=== PATIENT | male | born 1950 | race Caucasian/White ===

== ENCOUNTER 2016-10-02 13:36 | Inpatient (IN) | payer MEDICARE, MEDICAID ==
--- NOTE | 2016-10-02 16:20 | ER Document Report ---
Doctor's Note Notes: 10/02/16 16:19 66-year-old male extensive medical history presents with complaints of low blood pressure. Patient notes he was recently started on metoprolol lisinopril eyes primary care physician, his blood pressure was normal this morning took his medications and then his blood pressure dropped to 80s over 50s. Patient notes blood pressure since resolved and he feels better. Patient notes extensive medical problems. I have greeted and performed a rapid initial assessment of this patient. A comprehensive ED assessment and evaluation of the patient, analysis of test results and completion of the medical decision making process will be conducted by additional ED providers. General chronically ill-appearing male no acute distress on home O2, blood pressure stable at this time
--- NOTE | 2016-10-02 18:14 | ER Document Report ---
ED Blood Pressure Problem - General Chief Complaint: Blood Pressure Problem Stated Complaint: POSSIBLE LOW BLOOD PRESSURE Information source: Patient Notes: Patient is a 66-year-old male with past medical history including multiple cardiac stents, diabetes, and a history of cauda equina causing some left leg paralysis who presents today after being started on 2 new blood pressure medications by his new primary care physician Dr.O manzanares yesterday. Patient was started on metoprolol and Cipro. Patient states he took his blood pressure earlier today because he just felt "tired". He states it was "low". Patient denies any headache, chest pain, palpitations, nausea, vomiting, or fevers. When the patient arrived his blood pressure was 139/89. Patient currently denies any symptoms. TRAVEL OUTSIDE OF THE [place] IN LAST 30 DAYS: No - HPI Patient complains to provider of: Other - See above Onset: This morning Onset/Duration: Gradual Quality of pain: No pain Severity: Mild Pain Level: Denies Problem is: New problem Pt currently taking medication for problem: Yes Associated symptoms: Other - See above Similar symptoms previously: No Recently seen / treated by doctor: Yes - Related Data Allergies/Adverse Reactions: metoclopramide [From Reglan] Allergy (Verified 10/02/16 13:50) zolpidem [From Ambien] Allergy (Verified 10/02/16 13:50) Past Medical History - General Information source: Patient - Social History Smoking Status: Unknown if Ever Smoked Cigarette use (# per day): No Chew tobacco use (# tins/day): No Smoking Education Provided: No Frequency of alcohol use: None Family History: Reviewed & Not Pertinent Patient has suicidal ideation: No Patient has homicidal ideation: No - Past Medical History Cardiac Medical History: Reports: Hx Congestive Heart Failure, Hx Hypercholesterolemia, Hx Hypertension Endocrine Medical History: Reports: Hx Diabetes Mellitus Type 1 Renal/ Medical History: Denies: Hx Peritoneal Dialysis Review of Systems - Review of Systems Constitutional: denies: Fever EENT: denies: Eye discharge, Nose congestion, Nose discharge Cardiovascular: denies: Chest pain, Palpitations Respiratory: denies: Short of breath Gastrointestinal: denies: Abdomen distended, Abdominal pain, Vomiting Genitourinary: denies: Dysuria Musculoskeletal: denies: Leg swelling Skin: Other - no hives. denies: Rash Neurological/Psychological: Other - no slurred speech -: Yes All other systems reviewed and negative Physical Exam - Vital signs Vitals: Temp Pulse Resp BP Pulse Ox 98.3 F 71 16 138/89 H 100 10/02/16 13:53 10/02/16 13:53 10/02/16 13:53 10/02/16 13:53 10/02/16 13:53 Notes: Reviewed vital signs and nursing note as charted by RN. CONSTITUTIONAL: Alert and oriented and responds appropriately to questions. Well -appearing; well-nourished; on nasal cannula oxygen which he wears at baseline. HEAD: Normocephalic; atraumatic EYES: PERRL ENT: Normal nose; no rhinorrhea; moist mucous membranes; pharynx without lesions noted NECK: Supple without meningismus; non-tender CARD: Regular rate and rhythm; no murmurs, no clicks, no rubs, no gallops; symmetric distal pulses RESP: Normal chest excursion without splinting or tachypnea; breath sounds clear and equal bilaterally; no obvious rales or rhonchi present. ABD/GI: Normal bowel sounds; elevated BMI; soft, non-tender BACK: The back appears normal and is non-tender to palpation, there is no CVA tenderness EXT: Normal ROM in all joints; non-tender to palpation; no cyanosis, no effusions, no edema to bilateral shins. SKIN: Normal color for age and race; warm; dry; good turgor; capillary refill < 2 seconds; no acute lesions noted NEURO: A slight weakness of the left lower extremity. PSYCH: The patient's mood and manner are appropriate. Grooming and personal hygiene are appropriate. Course - Re-evaluation Re-evalutation: 10/02/16 18:11 Given the history and physical examination we will order a set of cardiac enzymes. Repeat blood pressure was still 140/85. Patient denies any current symptoms. Patient is not tachycardic. Examination as recorded above showing a slight start of a possible sacral decubitus ulcer. 2 EKGs were performed. 1638. This shows a heart of 65, normal sinus rhythm, normal axis, Q wave present in lead 3. No obvious ST elevation or depression. Inverted T waves appear in lead 1 and aVL. Old EKG from March 2016 shows flattened T waves in leads 1 aVL. 1655. Heart rate 65, normal sinus rhythm, normal axis, no obvious ST elevation or depression. No obvious change from previous EKG. Patient does state that he was admitted to an outside hospital in [place] named [facility]. He states he was diagnosed with a mild heart attack. He states no intervention was performed secondary to his baseline medical conditions. Again , patient is denied any and all pain. Patient has been started on 2 blood pressure medications at that same time yesterday. 10/02/16 20:02 First troponin indeterminate. Patient still denies any chest pain. We have placed a request was outside records at [facility] as above. Patient 's blood pressure has stabilized. Patient appears to be in slight acute renal failure. I have provided a bolus of 500 mL. During the patient's last admission in March he did suffer a cardiac arrest. I'm slightly concerned even about his transient low blood pressure. - Vital Signs Vital signs: Temp Pulse Resp BP Pulse Ox 98.3 F 71 25 H 110/76 100 10/02/16 13:53 10/02/16 13:53 10/02/16 19:07 10/02/16 19:07 10/02/16 19:07 - Laboratory Result Diagrams: 10/02/16 19:02 10/02/16 19:02 Laboratory results interpreted by me: 10/02/16 10/02/16 10/02/16 17:54 19:02 19:02 Hgb 13.2 L MCH 26.9 L RDW 17.4 H Seg Neuts % (Manual) 79 H PT 25.7 H VBG pH Sodium Potassium BUN Creatinine Est GFR ( Amer) Est GFR (Non-Af Amer) Glucose POC Glucose 243 H Creatine Kinase 10/02/16 10/02/16 19:02 19:02 Hgb MCH RDW Seg Neuts % (Manual) PT VBG pH 7.44 H Sodium 135.3 L Potassium 5.2 H BUN 58 H Creatinine 1.74 H Est GFR ( Amer) 48 L Est GFR (Non-Af Amer) 40 L Glucose 206 H POC Glucose Creatine Kinase 37 L Discharge - Discharge Clinical Impression: Lightheadedness, Adverse effect of drug Hypotension Qualifiers: Hypotension type: unspecified hypotension type Qualified Code(s): I95.9 - Hypotension, unspecified Pressure ulcer Qualifiers: Pressure ulcer location: sacral region Pressure ulcer stage: stage 1 Qualified Code(s): L89.151 - Pressure ulcer of sacral region, stage 1 Condition: Fair Disposition: ADMITTED OBSERVATION Admitting Provider: [facility] Unit Admitted: Telemetry
[2016-10-02 19:20] LABS: VENOUS BLOOD BASE EXCESS 2.2 mmol/L; VENOUS BLOOD HCO3 26.4 mmol/L (20-32); VENOUS BLOOD PCO2 39.8 mmHg (35-63); VENOUS BLOOD PH 7.44 (7.30-7.42)
[2016-10-02 19:24] LABS: PROTHROMBIN TIME 25.7 SEC (11.4-15.4)
[2016-10-02 19:33] LABS: HEMATOCRIT 39.1 % (37.9-51.0); HEMOGLOBIN 13.2 g/dL (13.5-17.0); HGB HCT DIFFERENCE 0.5; MEAN CORPUSCULAR HEMOGLOBIN 26.9 pg (27.0-33.4); MEAN CORPUSCULAR HGB CONC 33.8 g/dL (32.0-36.0); MEAN CORPUSCULAR VOLUME 80 fl (80-97); RED BLOOD COUNT 4.92 10^6/uL (4.35-5.55); RED CELL DISTRIBUTION WIDTH 17.4 % (11.5-14.0); WHITE BLOOD COUNT 9.1 10^3/uL (4.0-10.5)
[2016-10-02 19:42] LABS: ALANINE AMINOTRANSFERASE 41 U/L (21-72); ALBUMIN 4.4 g/dL (3.5-5.0); ALKALINE PHOSPHATASE 84 U/L (38-126); ANION GAP 12 (5-19); ASPARTATE AMINO TRANSFERASE 37 U/L (17-59); BILIRUBIN,DIRECT 0.2 mg/dL (0.0-0.4); BILIRUBIN,TOTAL 1.1 mg/dL (0.2-1.3); BLOOD UREA NITROGEN 58 mg/dL (7-20); CALCIUM 9.7 mg/dL (8.4-10.2); CARBON DIOXIDE 25 mmol/L (22-30); CHLORIDE 98 mmol/L (98-107); CREATINE KINASE 37 U/L (55-170); CREATININE RESULT 1.74 mg/dL (0.52-1.25); GLUCOSE 206 mg/dL (75-110); POTASSIUM 5.2 mmol/L (3.6-5.0); SODIUM 135.3 mmol/L (137-145); TOTAL PROTEIN 7.1 g/dL (6.3-8.2)
[2016-10-02 19:48] LABS: BASOPHILS % (MANUAL) 1 % (0-2); EOSINOPHILS % (MANUAL) 0 % (0-6); LYMPHOCYTES % (MANUAL) 16 % (13-45); TOTAL CELLS COUNTED 100
[2016-10-02] MEDS ORDERED: NORMAL SALINE 1000 ML 500 ML IV ONE (19:54)
[2016-10-02 19:55] LABS: CREATINE KINASE MB 1.89 ng/mL (<4.55)
[2016-10-02 19:56] LABS: ANISOCYTOSIS 1+; BURR CELLS SLIGHT; HYPOCHROMASIA SLIGHT; MICROCYTOSIS SLIGHT; OVALOCYTES SLIGHT; PLATELET CLUMPS PRESENT; POIKILOCYTOSIS SLIGHT; TOXIC GRANULATION SLIGHT
[2016-10-02 19:58] LABS: TROPONIN I 0.059 ng/mL
[2016-10-02 22:49] LABS: APPEARANCE,URINE CLEAR; BILIRUBIN,URINE NEGATIVE (NEGATIVE); GLUCOSE, URINE NEGATIVE (NEGATIVE); KETONES,URINE NEGATIVE (NEGATIVE); LEUKOCYTE ESTERASE,URINE NEGATIVE (NEGATIVE); NITRITE,URINE NEGATIVE (NEGATIVE); PROTEIN,URINE 30 mg/dL (NEGATIVE); URINE SPECIFIC GRAVITY 1.011; UROBILINOGEN,URINE NEGATIVE mg/dL (<2.0)
--- NOTE | 2016-10-03 00:06 | EKG REPORT ---
SEVERITY:- ABNORMAL ECG - SINUS RHYTHM NONSPECIFIC INTRAVENTRICULAR CONDUCTION DELAY INFERIOR INFARCT, AGE INDETERMINATE : Confirmed by: Zayra Hilton 03-Oct-2016 00:05:46
--- NOTE | 2016-10-03 00:06 | EKG REPORT ---
SEVERITY:- ABNORMAL ECG - SINUS RHYTHM NONSPECIFIC INTRAVENTRICULAR CONDUCTION DELAY PROBABLE INFERIOR INFARCT, AGE INDETERMINATE : Confirmed by: Zayra Hilton 03-Oct-2016 00:05:34
[2016-10-03] MEDS ORDERED: NORMAL SALINE 1000 ML 1,000 ML IV PRN ×2 (02:02→07:14)
[2016-10-03] MEDS ORDERED: GLUCAGON,HUMAN RECOMB 1 MG INJ IM PRN (02:45)
[2016-10-03] MEDS ORDERED: DEXTROSE 40% GEL 15 GM TUBE PO PRN (02:45)
[2016-10-03] MEDS ORDERED: DEXTROSE 50%-WATER SYRINGE 25 GM/50 ML DOSE IV PRN (02:45)
[2016-10-03] MEDS ORDERED: DEXTROSE 40% GEL 15 GM TUBE X 2 PO PRN (02:45)
[2016-10-03] MEDS ORDERED: DEXTROSE 50%-WATER SYRINGE 12.5 GM/25 ML DOSE IV PRN (02:45)
[2016-10-03] MEDS ORDERED: HYDROMORPHONE HCL 2 MG TABLET PO PRN (02:51)
[2016-10-03] MEDS ORDERED: PROMETHAZINE HCL 25 MG TABLET PO PRN (02:57)
[2016-10-03] MEDS: GABAPENTIN 300 MG CAPSULE PO SCH ×3 (07:15→22:30)
[2016-10-03] MEDS: OXYCODONE HCL SR 40 MG TABLET PO SCH ×3 (07:15→22:30)
[2016-10-03] MEDS ORDERED: (PENDING PHARMACY ID) (Warfarin Sodium 2 MG) PO SCH (10:00)
[2016-10-03] MEDS ORDERED: LANSOPRAZOLE 30 MG TAB.RAP.DR PO SCH (10:00)
[2016-10-03] MEDS ORDERED: LEVOTHYROXINE SODIUM 0.1 MG TABLET PO SCH (10:00)
[2016-10-03 10:43] LABS: HEMATOCRIT 37.8 % (37.9-51.0); HEMOGLOBIN 12.6 g/dL (13.5-17.0); MEAN CORPUSCULAR HEMOGLOBIN 26.8 pg (27.0-33.4); MEAN CORPUSCULAR HGB CONC 33.4 g/dL (32.0-36.0); MEAN CORPUSCULAR VOLUME 80 fl (80-97); RED BLOOD COUNT 4.72 10^6/uL (4.35-5.55); RED CELL DISTRIBUTION WIDTH 16.8 % (11.5-14.0); WHITE BLOOD COUNT 10.3 10^3/uL (4.0-10.5)
[2016-10-03 11:00] LABS: ANION GAP 14 (5-19); BLOOD UREA NITROGEN 54 mg/dL (7-20); CALCIUM 9.2 mg/dL (8.4-10.2); CARBON DIOXIDE 23 mmol/L (22-30); CHLORIDE 99 mmol/L (98-107); CREATININE RESULT 1.59 mg/dL (0.52-1.25); GLUCOSE 210 mg/dL (75-110); MAGNESIUM 2.2 mg/dL (1.6-2.3); POTASSIUM 5.2 mmol/L (3.6-5.0); SODIUM 135.8 mmol/L (137-145)
[2016-10-03 11:01] LABS: BASOPHILS % (MANUAL) 0 % (0-2); EOSINOPHILS % (MANUAL) 0 % (0-6); LYMPHOCYTES % (MANUAL) 19 % (13-45); TOTAL CELLS COUNTED 100
[2016-10-03 11:02] LABS: ANISOCYTOSIS 1+; BURR CELLS SLIGHT; HYPOCHROMASIA SLIGHT; OVALOCYTES SLIGHT; POIKILOCYTOSIS 1+
[2016-10-03] MEDS: METOPROLOL TARTRATE 50 MG TABLET PO SCH (11:40)
[2016-10-03] MEDS: BUMETANIDE 1 MG TABLET PO SCH (11:40)
[2016-10-03] MEDS: RANOLAZINE 500 MG TAB.SR.12H PO SCH ×2 (11:41→22:30)
[2016-10-03] MEDS: PREDNISONE 10 MG TABLET PO SCH (11:42)
[2016-10-03] MEDS: SPIRONOLACTONE 25 MG TABLET PO SCH (11:42)
[2016-10-03] MEDS: ASPIRIN 81 MG TABLET, CHEWABLE PO SCH (11:42)
[2016-10-03] MEDS: INSULIN LISPRO 100 UNIT/ML 3 ML VIAL SUBCUT SCH ×3 (12:25→22:35)
--- NOTE | 2016-10-03 18:37 | PDOC H&P ---
History of Present Illness Admission Date/PCP: 10/03/16 07:40 RAVI SANCHEZ MD History of Present Illness: KARISSA JHA is a 66 year old male he has a history of type II diabetes mellitus, coronary artery disease with stenting, caudia equina paraplegia, he said he felt bad he then check his blood pressure and it was low he then called rescue squad, when they arrived he was in the recliner the blood pressure recorded was 130/70 but patient requested to be transported to the hospital for further evaluation. In the emergency room he was seen and evaluated, the blood pressure recorded in the emergency room was 138/89, temperature 98.3 and pulse oximetry was 100 ,respiratory rate was 16 he also have blood work done, the serum creatinine was 1.74. I saw this patient in the office on and at that time he had comprehensive blood work done the serum creatinine was 1.8 from the lab work that was done in the office last week . He has a history of diabetes mellitus, coronary artery disease when I reviewed his medication in the office on he was not on any beta- erika or ARB/ACEI. I explained to him that it is recommended that he takes beta-erika especially since he has CAD with multiple stenting and he also needed to be on ARB/ACEI for kidney protection because he is a diabetic so he was started on low-dose lisinopril and metoprolol. The patient stated that the blood pressure recorded at home was low, the blood pressure recorded by rescue squad and the emergency room was not low ,Anton not know if his machine is the problem or if he took too many medication at the same time. The emergency room physician wanted him admitted to the hospital because he said the last time he presented to the emergency room he had a cardiac arrest and he was transferred to tertiary care at the time so he does not feel comfortable to discharge him from the ED , though the blood pressure is normal Past Medical History Cardiac Medical History: Reports: Congestive Heart Failure, Coronary Artery Disease, Hyperlipidema, Hypertension Endocrine Medical History: Reports: Diabetes Mellitus Type 2 Psychiatric Medical History: Reports: Depression Past Surgical History Past Surgical History: Reports: Cardiac Catheterization, Coronary Artery Bypass Graft, Other - multiple coronary artery stents Social History Smoking Status: Unknown if Ever Smoked Frequency of Alcohol Use: None Hx Recreational Drug Use: No Hx Prescription Drug Abuse: No Family History Family History: Reviewed & Not Pertinent Parental Family History Reviewed: Yes Children Family History Reviewed: Yes Sibling(s) Family History Reviewed.: Yes Medication/Allergy Home Medications: Aspirin [Aspirin 81 mg Chewable Tablet] 81 mg PO DAILY 10/03/16 Atorvastatin Calcium [Lipitor 80 mg Tablet] 80 mg PO DAILY 10/03/16 Baclofen [Baclofen 10 mg Tablet] 10 mg PO TIDP PRN 10/03/16 Bumetanide [Bumex 1 mg Tablet] 1 mg PO DAILY 10/03/16 Clopidogrel Bisulfate [Plavix 75 mg Tablet] 75 mg PO DAILY 10/03/16 Gabapentin [Neurontin 300 mg Capsule] 300 mg PO Q8 10/03/16 Hydromorphone HCl [Dilaudid 2 mg Tablet] 4 mg PO BIDP PRN 10/03/16 Insulin Detemir [Levemir Flextouch] 50 unit SQ QHS 10/03/16 Insulin Lispro [Humalog Kwikpen U-200] 10 unit SQ ACHS 10/03/16 Isosorbide Dinitrate [Isordil Titradose 10 mg Tablet] 10 mg PO Q8 10/03/16 Levothyroxine Sodium [Synthroid 0.1 mg Tablet] 0.1 mg PO DAILY@0600 10/03/16 Lisinopril [Prinivil 10 mg Tablet] 10 mg PO DAILY 10/03/16 Metoprolol Tartrate [Lopressor 50 mg Tablet] 50 mg PO DAILY 10/03/16 Nitroglycerin [Nitrostat] 0.4 mg SL Q5MP PRN 10/03/16 Oxycodone HCl [Oxycontin Sr 40 mg Tablet] 40 mg PO Q8 10/03/16 Pantoprazole Sodium [Protonix] 40 mg PO DAILY 10/03/16 Prednisone [Deltasone 10 mg Tablet] 10 mg PO DAILY 10/03/16 Promethazine HCl [Phenergan 25 mg Tablet] 25 mg PO TIDP PRN 10/03/16 Ranolazine [Ranexa 500 mg Tab.sr] 500 mg PO Q12 10/03/16 Spironolactone [Aldactone 25 mg Tablet] 25 mg PO DAILY 10/03/16 Warfarin Sodium [Coumadin 2 mg Tablet] 2 mg PO DAILY 10/03/16 Allergies/Adverse Reactions: metoclopramide [From Reglan] Allergy (Verified 10/02/16 13:50) zolpidem [From Ambien] Allergy (Verified 10/02/16 13:50) Review of Systems Constitutional: PRESENT: fatigue Eyes: ABSENT: visual disturbances Ears: ABSENT: hearing changes Cardiovascular: ABSENT: chest pain, dyspnea on exertion, edema, orthropnea, palpitations Respiratory: ABSENT: cough, hemoptysis Gastrointestinal: ABSENT: abdominal pain, constipation, diarrhea, hematemesis, hematochezia, nausea, vomiting Genitourinary: ABSENT: dysuria, hematuria Musculoskeletal: ABSENT: joint swelling Integumentary: ABSENT: rash, wounds Neurological: ABSENT: abnormal gait, abnormal speech, confusion, dizziness, focal weakness, syncope Psychiatric: ABSENT: anxiety, depression, homidical ideation, suicidal ideation Endocrine: ABSENT: cold intolerance, heat intolerance, menstrual abnormalities, polydipsia, polyuria Hematologic/Lymphatic: ABSENT: easy bleeding, easy bruising, lymphadenopathy Physical Exam Vital Signs: Temp Pulse Resp BP Pulse Ox 97.3 F 56 L 19 101/48 L 100 10/03/16 16:00 10/03/16 16:00 10/03/16 16:00 10/03/16 16:00 10/03/16 16:00 Intake & Output 10/02/16 10/03/16 10/04/16 06:59 06:59 06:59 Intake Total 1751 Output Total 600 Balance 1151 General appearance: PRESENT: no acute distress, well-developed, well-nourished Head exam: PRESENT: atraumatic, normocephalic Eye exam: PRESENT: conjunctiva pink, EOMI, PERRLA Neck exam: PRESENT: full ROM Cardiovascular exam: PRESENT: RRR, +S1, +S2 Pulses: PRESENT: normal dorsalis pedis pul, +2 pedal pulses bilateral Vascular exam: PRESENT: normal capillary refill GI/Abdominal exam: PRESENT: normal bowel sounds, soft Rectal exam: PRESENT: deferred Neurological exam: PRESENT: alert, other - Paraplegia Psychiatric exam: PRESENT: appropriate affect, normal mood Skin exam: PRESENT: dry, intact, warm. ABSENT: cyanosis, rash Results Laboratory Results: 10/03/16 09:50 10/03/16 09:50 10/03/16 10/03/16 09:50 09:50 WBC 10.3 RBC 4.72 Hgb 12.6 L Hct 37.8 L MCV 80 MCH 26.8 L MCHC 33.4 RDW 16.8 H Plt Count 204 Seg Neutrophils % Not Reportable Lymphocytes % Not Reportable Monocytes % Not Reportable Eosinophils % Not Reportable Basophils % Not Reportable Absolute Neutrophils Not Reportable Absolute Lymphocytes Not Reportable Absolute Monocytes Not Reportable Absolute Eosinophils Not Reportable Absolute Basophils Not Reportable Sodium 135.8 L Potassium 5.2 H Chloride 99 Carbon Dioxide 23 Anion Gap 14 BUN 54 H Creatinine 1.59 H Est GFR ( Amer) 53 L Est GFR (Non-Af Amer) 44 L Glucose 210 H Calcium 9.2 Magnesium 2.2 Impressions: Chest X-Ray 10/02/16 16:18 IMPRESSION: Interval improvement. Assessment & Plan - Diagnosis (1) Acute kidney injury superimposed on chronic kidney disease Is this a current diagnosis for this admission?: YesPlan: There is mild acute kidney injury on superimposed chronic kidney disease (2) Chronic kidney disease, stage 3 Is this a current diagnosis for this admission?: Yes (3) Acute on chronic systolic heart failure Is this a current diagnosis for this admission?: Yes
[2016-10-03] MEDS ORDERED: WARFARIN SODIUM 2 MG TABLET PO SCH (22:00)
[2016-10-03] MEDS: INSULIN LISPRO 100 UNIT/ML 3 ML VIAL SUBCUT PRN (22:29)
[2016-10-03] MEDS: INSULIN DETEMIR 100 UNIT/ML 3 ML PEN SUBCUT SCH (22:30)
[2016-10-03] MEDS: ATORVASTATIN CALCIUM 80 MG TABLET PO SCH (22:30)
[2016-10-03] MEDS ORDERED: RANOLAZINE 500 MG TAB.SR.12H PO SCH (23:00)
[2016-10-03] MEDS ORDERED: LISINOPRIL 10 MG TABLET PO SCH (23:00)
[2016-10-03] MEDS ORDERED: ATORVASTATIN CALCIUM 80 MG TABLET PO SCH (23:00)
[2016-10-03] MEDS ORDERED: GABAPENTIN 300 MG CAPSULE PO SCH (23:00)
[2016-10-03] MEDS ORDERED: ASPIRIN 81 MG TABLET, CHEWABLE PO SCH (23:00)
[2016-10-03] MEDS ORDERED: CLOPIDOGREL BISULFATE 75 MG TABLET PO SCH (23:00)
[2016-10-03] MEDS ORDERED: CEFTRIAXONE 2 GM/D5W RTU 2 GM/50 ML RTUPB IV ONE (23:00)
[2016-10-03] MEDS ORDERED: INSULIN DETEMIR 100 UNIT/ML 3 ML PEN SUBCUT SCH (23:00)
[2016-10-03] MEDS ORDERED: METOPROLOL TARTRATE 50 MG TABLET PO SCH (23:00)
[2016-10-04] MEDS ORDERED: CEFTRIAXONE 2 GM/D5W RTU 2 GM/50 ML RTUPB IV ONE (01:07)
[2016-10-04] MEDS: MAG HYDROX/AL HYDROX/SIMETH SUSP 30 ML UDCUP PO PRN (01:38)
[2016-10-04] MEDS ORDERED: LEVOTHYROXINE SODIUM 0.1 MG TABLET PO SCH (06:00)
[2016-10-04] MEDS: OXYCODONE HCL SR 40 MG TABLET PO SCH ×3 (06:16→23:35)
[2016-10-04] MEDS: GABAPENTIN 300 MG CAPSULE PO SCH ×3 (06:16→23:34)
[2016-10-04 07:06] LABS: HEMATOCRIT 35.8 % (37.9-51.0); HEMOGLOBIN 11.9 g/dL (13.5-17.0); HGB HCT DIFFERENCE -0.1; MEAN CORPUSCULAR HEMOGLOBIN 26.5 pg (27.0-33.4); MEAN CORPUSCULAR HGB CONC 33.2 g/dL (32.0-36.0); MEAN CORPUSCULAR VOLUME 80 fl (80-97); RED CELL DISTRIBUTION WIDTH 16.7 % (11.5-14.0); WHITE BLOOD COUNT 8.3 10^3/uL (4.0-10.5)
[2016-10-04 07:16] LABS: PROTHROMBIN TIME 21.5 SEC (11.4-15.4)
[2016-10-04] MEDS: BUMETANIDE 1 MG TABLET PO SCH (08:47)
[2016-10-04] MEDS: RANOLAZINE 500 MG TAB.SR.12H PO SCH ×2 (08:48→23:34)
[2016-10-04] MEDS: METOPROLOL TARTRATE 50 MG TABLET PO SCH (08:49)
[2016-10-04] MEDS: ASPIRIN 81 MG TABLET, CHEWABLE PO SCH (08:49)
[2016-10-04] MEDS: SPIRONOLACTONE 25 MG TABLET PO SCH (08:49)
[2016-10-04] MEDS: PREDNISONE 10 MG TABLET PO SCH (08:50)
[2016-10-04] MEDS: INSULIN LISPRO 100 UNIT/ML 3 ML VIAL SUBCUT SCH ×4 (08:50→23:36)
[2016-10-04] MEDS: LEVOTHYROXINE SODIUM 0.1 MG TABLET PO SCH (08:54)
[2016-10-04] MEDS: ISOSORBIDE DINITRATE 10 MG TABLET PO SCH ×3 (09:53→23:34)
[2016-10-04 10:33] LABS: APPEARANCE,URINE CLEAR; BILIRUBIN,URINE NEGATIVE (NEGATIVE); GLUCOSE, URINE NEGATIVE (NEGATIVE); KETONES,URINE NEGATIVE (NEGATIVE); LEUKOCYTE ESTERASE,URINE NEGATIVE (NEGATIVE); NITRITE,URINE NEGATIVE (NEGATIVE); PROTEIN,URINE NEGATIVE (NEGATIVE); URINE SPECIFIC GRAVITY 1.009; UROBILINOGEN,URINE NEGATIVE mg/dL (<2.0)
--- NOTE | 2016-10-04 20:15 | PDOC PROGRESS REPORT ---
Subjective Progress Note for:: 10/04/16 Subjective:: He was seen by the bedside, the urine culture is growing gram-negative rods, specific pathogen is not known yet empirically started on Rocephin. 2D echo was done, ejection fraction is low, patient needed ACEI/ARB and beta-erika, he is somewhat confused of the need for ACEI/ARB. He probably need entresto but it is nonformulary in the hospital Physical Exam Vital Signs: Temp Pulse Resp BP Pulse Ox 97.4 F 57 L 18 102/61 100 10/04/16 15:01 10/04/16 15:01 10/04/16 15:01 10/04/16 15:01 10/04/16 18:21 Intake & Output 10/03/16 10/04/16 10/05/16 06:59 06:59 06:59 Intake Total 380 2478 360 Output Total 200 2475 600 Balance 180 3 -240 Weight 102.8 kg General appearance: PRESENT: no acute distress Eye exam: PRESENT: PERRLA Respiratory exam: PRESENT: clear to auscultation rebecca Cardiovascular exam: PRESENT: +S1, +S2 Results Laboratory Results: 10/04/16 06:57 10/03/16 09:50 10/04/16 10/04/16 06:57 10:10 WBC 8.3 RBC 4.50 Hgb 11.9 L Hct 35.8 L MCV 80 MCH 26.5 L MCHC 33.2 RDW 16.7 H Plt Count 182 Urine Color STRAW Urine Appearance CLEAR Urine pH 7.0 Ur Specific [place] 1.009 Urine Protein NEGATIVE Urine Glucose (UA) NEGATIVE Urine Ketones NEGATIVE Urine Blood SMALL H Urine Nitrite NEGATIVE Ur Leukocyte Esterase NEGATIVE Urine WBC (Auto) 1 Impressions: Chest X-Ray 10/02/16 16:18 IMPRESSION: Interval improvement. Assessment & Plan - Diagnosis (1) Acute kidney injury superimposed on chronic kidney disease Is this a current diagnosis for this admission?: Yes (2) Chronic kidney disease, stage 3 Is this a current diagnosis for this admission?: Yes (3) Chronic systolic heart failure Is this a current diagnosis for this admission?: YesPlan: Consultation is obtained from cardiology
--- NOTE | 2016-10-04 21:03 | XCELERA REPORT ---
[address] [address] Transthoracic Echocardiogram Report Name: KARISSA JHA Age: 66 yrs Gender: Male : 1950 Patient Status: Inpatient Patient Location: 5\S\530\S\A Study Date: 10/04/2016 02:49 PM Height: 70 in Weight: 226 lb BSA: 2.2 m2 Procedure: A complete two-dimensional transthoracic echocardiogram was performed (2D, M-mode, spectral and color flow Doppler). The study was technically difficult with many images being suboptimal in quality. Reason For Study: CAD Ordering Physician: RAVI SANCHEZ Performed By: Jennifer Benz Interpretation Summary The study was technically difficult with many images being suboptimal in quality. The Ejection Fraction estimate is 45-50% Left ventricular systolic function is mildly reduced. There is mild concentric left ventricular hypertrophy. The left ventricle is borderline dilated. Doppler measurements suggest pseudonormalized left ventricular relaxation, which is associated with grade II/IV or mild to moderate diastolic dysfunction Not all wall segments were well visualized. Wall motion cannot be accurately commented on, but no definite regional wall motion abnormalities noted. The right ventricular systolic function is normal. The left atrium is moderately dilated. The right atrium is normal in size There is a mild amount of mitral regurgitation There is no mitral valve stenosis. There is a trace amount of aortic regurgitation There is no aortic valve stenosis There is a trace or physiologic amount of tricuspid regurgitation Tricuspid regurgitation jet envelope not well defined to measure RV systolic pressure accurately. The aortic root is not well visualized. The inferior vena cava was not well visualized There is no pericardial effusion. MMode/2D Measurements \T\ Calculations RVDd: 3.9 cm LVIDd: 5.6 cm FS: 19.3 % Ao root diam: 3.2 cm IVSd: 1.2 cm LVIDs: 4.5 cm EDV(Teich): 155.3 ml LVPWd: 1.2 cm ESV(Teich): 94.3 ml Ao root area: 8.2 cm2 EF(Teich): 39.3 % LA dimension: 5.1 cm Doppler Measurements \T\ Calculations MV E max vangie: MV P1/2t max vangie: Ao V2 max: LV V1 max P.8 cm/sec 79.4 cm/sec 79.3 cm/sec 1.9 mmHg MV A max vangie: MV P1/2t: 65.3 msec Ao max PG: LV V1 max: 65.9 cm/sec 2.5 mmHg 69.8 cm/sec MV E/A: 1.2 MVA(P1/2t): 3.4 cm2 MV dec slope: 356.4 cm/sec2 MV dec time: 0.22 sec PA V2 max: TR max vangie: 73.3 cm/sec 181.3 cm/sec PA max PG: TR max P.2 mmHg 2.1 mmHg Left Ventricle The left ventricle is borderline dilated. There is mild concentric left ventricular hypertrophy. Left ventricular systolic function is mildly reduced. The Ejection Fraction estimate is 45-50%. Doppler measurements suggest pseudonormalized left ventricular relaxation, which is associated with grade II/IV or mild to moderate diastolic dysfunction. Wall motion cannot be accurately commented on, but no definite regional wall motion abnormalities noted. Not all wall segments were well visualized. Right Ventricle The right ventricle is grossly normal size. There is normal right ventricular wall thickness. The right ventricular systolic function is normal. Atria The right atrium is normal in size. The left atrium is moderately dilated. Interarterial septum not well visualized and not well dopplered. Cannot comment on ASD/PFO presence. Mitral Valve There is mild mitral annular calcification. There is no mitral valve stenosis. There is a mild amount of mitral regurgitation. Aortic Valve The aortic valve is mildly calcified. There is no aortic valve stenosis. There is a trace amount of aortic regurgitation. Tricuspid Valve The tricuspid valve is not well visualized secondary to technical limitations. There is no tricuspid stenosis. There is a trace or physiologic amount of tricuspid regurgitation. Tricuspid regurgitation jet envelope not well defined to measure RV systolic pressure accurately. Pulmonic Valve The pulmonic valve is not well visualized. Great Vessels The aortic root is not well visualized. The inferior vena cava was not well visualized. Effusions There is no pericardial effusion. : RAVI SANCHEZ > Zayra Hilton
[2016-10-04] MEDS: INSULIN DETEMIR 100 UNIT/ML 3 ML PEN SUBCUT SCH (23:33)
[2016-10-04] MEDS: INSULIN LISPRO 100 UNIT/ML 3 ML VIAL SUBCUT PRN (23:34)
[2016-10-04] MEDS: ATORVASTATIN CALCIUM 80 MG TABLET PO SCH (23:34)
[2016-10-04] MEDS: CEFTRIAXONE 2 GM/D5W RTU 2 GM/50 ML RTUPB IV SCH (23:35)
[2016-10-04] MEDS: WARFARIN SODIUM 2.5 MG TABLET PO SCH (23:35)
[2016-10-05] MEDS: ISOSORBIDE DINITRATE 10 MG TABLET PO SCH ×3 (05:36→22:31)
[2016-10-05] MEDS: GABAPENTIN 300 MG CAPSULE PO SCH ×3 (05:36→22:31)
[2016-10-05] MEDS: OXYCODONE HCL SR 40 MG TABLET PO SCH ×3 (05:36→22:33)
[2016-10-05] MEDS: LANSOPRAZOLE 30 MG TAB.RAP.DR PO SCH (05:37)
[2016-10-05] MEDS: LEVOTHYROXINE SODIUM 0.1 MG TABLET PO SCH (05:39)
[2016-10-05] MEDS: INSULIN LISPRO 100 UNIT/ML 3 ML VIAL SUBCUT SCH ×3 (07:58→16:27)
--- NOTE | 2016-10-05 08:36 | PDOC CONSULTATION ---
Consultation Consult Date: 10/05/16 Attending physician:: RAVI SANCHEZ Consult reason:: Hypotension, cardiomyopathy, coronary artery disease. History of Present Illness Admission Date/PCP: 10/02/16 20:12 RAVI SANCHEZ MD Patient complains of: Hypotension History of Present Illness: KARISSA JHA is a 66 year old male he has a history of type II diabetes mellitus, coronary artery disease with stenting, caudia equina paraplegia, he said, he felt weak and tired therefore checked his blood pressure which was low he then called rescue squad, when they arrived he was in the recliner the blood pressure recorded was 130/70 but patient requested to be transported to the hospital for further evaluation. In the emergency room he was seen and evaluated, the blood pressure recorded the emergency room was 138/89, temperature 98.3 on pulse oximetry was 100 respiratory rate was 16 he also have blood work done, the serum creatinine was 1.74. Patient seen by primary care MJoseph in the office on and at that time he had comprehensive blood work done the serum creatinine was 1.8 from the lab work that was done in the office last week . He has a history of diabetes mellitus, coronary artery disease. The emergency room physician wanted him admitted to the hospital because he said the last time he presented to the emergency room he had a cardiac arrest and he was transferred to tertiary care at the time so he does not feel comfortable to discharge him from the ED. Patient was seen in my office previously.. He has history of prior myocardial infarction, prior stroke , diabetes, paraplegia from cauda equina syndrome. Past Medical History Cardiac Medical History: Reports: Congestive Heart Failure, Coronary Artery Disease, Hyperlipidema, Hypertension Endocrine Medical History: Reports: Diabetes Mellitus Type 1, Diabetes Mellitus Type 2 Psychiatric Medical History: Reports: Depression Past Surgical History Past Surgical History: Reports: Cardiac Catheterization, Coronary Artery Bypass Graft, Coronary Stent Social History Information Source: Patient Smoking Status: Unknown if Ever Smoked Frequency of Alcohol Use: None Hx Recreational Drug Use: No Hx Prescription Drug Abuse: No - Advance Directive Resuscitation Status: Full Code Family History Family History: Reviewed & Not Pertinent Parental Family History Reviewed: Yes Children Family History Reviewed: Yes Sibling(s) Family History Reviewed.: Yes - Positive for CAD but not premature Medication/Allergy Home Medications: Aspirin [Aspirin 81 mg Chewable Tablet] 81 mg PO DAILY 10/03/16 Atorvastatin Calcium [Lipitor 80 mg Tablet] 80 mg PO DAILY 10/03/16 Baclofen [Baclofen 10 mg Tablet] 10 mg PO TIDP PRN 10/03/16 Bumetanide [Bumex 1 mg Tablet] 1 mg PO DAILY 10/03/16 Clopidogrel Bisulfate [Plavix 75 mg Tablet] 75 mg PO DAILY 10/03/16 Gabapentin [Neurontin 300 mg Capsule] 300 mg PO Q8 10/03/16 Hydromorphone HCl [Dilaudid 2 mg Tablet] 4 mg PO BIDP PRN 10/03/16 Insulin Detemir [Levemir Flextouch] 50 unit SQ QHS 10/03/16 Insulin Lispro [Humalog Kwikpen U-200] 10 unit SQ ACHS 10/03/16 Isosorbide Dinitrate [Isordil Titradose 10 mg Tablet] 10 mg PO Q8 10/03/16 Levothyroxine Sodium [Synthroid 0.1 mg Tablet] 0.1 mg PO DAILY@0600 10/03/16 Lisinopril [Prinivil 10 mg Tablet] 10 mg PO DAILY 10/03/16 Metoprolol Tartrate [Lopressor 50 mg Tablet] 50 mg PO DAILY 10/03/16 Nitroglycerin [Nitrostat] 0.4 mg SL Q5MP PRN 10/03/16 Oxycodone HCl [Oxycontin Sr 40 mg Tablet] 40 mg PO Q8 10/03/16 Pantoprazole Sodium [Protonix] 40 mg PO DAILY 10/03/16 Prednisone [Deltasone 10 mg Tablet] 10 mg PO DAILY 10/03/16 Promethazine HCl [Phenergan 25 mg Tablet] 25 mg PO TIDP PRN 10/03/16 Ranolazine [Ranexa 500 mg Tab.sr] 500 mg PO Q12 10/03/16 Spironolactone [Aldactone 25 mg Tablet] 25 mg PO DAILY 10/03/16 Warfarin Sodium [Coumadin 2 mg Tablet] 2 mg PO DAILY 10/03/16 Allergies/Adverse Reactions: metoclopramide [From Reglan] Allergy (Verified 10/02/16 13:50) zolpidem [From Ambien] Allergy (Verified 10/02/16 13:50) Review of Systems Review of Systems: Please see history of present illness and past medical history as wall. Constitutional: No fever or chills reported. Generalized weakness reported Head : No recent chronic headaches, recent head injury. Eyes: No recent eye pain, diplopia, redness, discharge, acute visual changes. Ears: No recent chronic ear pain, acute hearing loss, ear discharge. Oral cavity: No recent ulcerations, bleeding, oral cavity discomfort. Neck: No recent acute neck pain reported. Hematologic: No recent easy bruising or bleeding or hematologic malignancy reported. Lymphatic: No recent lymphatic malignancy, chronic lymphadenopathy reported yet Cardiovascular system review: See history of present illness. Respiratory system review: No recent chronic cough, hemoptysis, blood clots in the lungs reported. Mild Shortness of breath on exertion Gastrointestinal system review: Negative for any recent acute or chronic abdominal pain, hematemesis, melena, recent change in bowel habits. Genitourinary system review: No recent acute or chronic hematuria, flank pain, UTI etc. reported. Skin system review: Negative for any recent abnormal bruising, no rash, no pruritus reported. Neurologic: No prior history of strokes, mini strokes, seizure disorder. Patient has cauda equina syndrome and has paraparesis. Psychologic: No history of major psychosis or major depression reported. Musculoskeletal: Minor aches and pains reported. No acute joint swelling reported. 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 Endocrine: No recent polyuria, polydipsia, recent heat or cold intolerance. Physical Exam Vital Signs: Temp Pulse Resp BP Pulse Ox 97.2 F 54 L 19 108/50 L 100 10/05/16 03:44 10/05/16 07:00 10/05/16 03:44 10/05/16 03:44 10/05/16 03:44 Intake & Output 10/04/16 10/05/16 10/06/16 06:59 06:59 06:59 Intake Total 2478 1270 Output Total 2475 3425 Balance 3 -2155 Exam: GENERAL: well-nourished and in no acute distress. Alert and oriented x3 HEAD: Atraumatic, normocephalic. EYES: Pupils equal round and reactive to light, extraocular movements intact, sclera anicteric, conjunctiva are normal. ENT: TMs normal, nares patent, oropharynx clear without exudates. Moist mucous membranes. No oral ulcerations or bleeding gums noted NECK: supple without lymphadenopathy. Trachea is central. No cervical or axillary lymphadenopathy noted. Carotids are 2+, JVD WNL LUNGS: Respiration seems nonlabored, no significant accessory muscle action noted. Breath sounds clear to auscultation bilaterally and equal noted. No wheezes rales or rhonchi noted. No significant dullness noted on percussion. CHEST: Palpation of the chest wall shows no significant chest wall tenderness. No other significant abnormalities noted. HEART: Alexis BID CLERK, No PSH, 1/6 ME[place] aortic area, 1/6 coleman systolic murmur mitral area, no rubs, no gallops. ABDOMEN: Soft, no significant tenderness appreciated, normoactive bowel sounds. No guarding, no rebound. No rigidity noted . No masses appreciated. EXTREMITIES: Pedal pulses are 1-2+, no calf tenderness noted. No clubbing or cyanosis.trace pedal edema noted NEUROLOGICAL: Focused neurological exam showed bilateral lower extremity weakness from cauda equina syndrome. PSYCH: Normal mood, normal affect. Judgment and insight within normal limits. SKIN: No significant ecchymosis, rash, ulcerations or signs of pruritus noted. MUSCULOSKELETAL EXAM: No significant joint swelling noted. Muscle weakness noted both lower extremity. Results Laboratory Results: 10/04/16 06:57 10/03/16 09:50 10/04/16 10:10 Urine Color STRAW Urine Appearance CLEAR Urine pH 7.0 Ur Specific [place] 1.009 Urine Protein NEGATIVE Urine Glucose (UA) NEGATIVE Urine Ketones NEGATIVE Urine Blood SMALL H Urine Nitrite NEGATIVE Ur Leukocyte Esterase NEGATIVE Urine WBC (Auto) 1 Impressions: Chest X-Ray 10/02/16 16:18 IMPRESSION: Interval improvement. Assessment & Plan - Diagnosis (1) Low blood pressure Qualifiers: Hypotension type: unspecified hypotension type Qualified Code(s): I95.9 - Hypotension, unspecified Is this a current diagnosis for this admission?: Yes (2) Coronary artery disease Qualifiers: Coronary Disease-Associated Artery/Lesion type: unspecified vessel or lesion type Associated angina: angina presence unspecified Is this a current diagnosis for this admission?: Yes (3) Chronic kidney disease, stage 3 Is this a current diagnosis for this admission?: Yes (4) Chronic systolic heart failure Is this a current diagnosis for this admission?: Yes (5) Chronic kidney disease Qualifiers: Chronic kidney disease stage: stage 3 (moderate) Qualified Code(s): N18.3 - Chronic kidney disease, stage 3 (moderate) Is this a current diagnosis for this admission?: Yes - Notes Notes: Hypotension: This has improved. Patient is at somewhat risk because patient tends to sit still or long time and has cauda equina syndrome. It's best to avoid by mouth vasodilator in this patient. Have switched patient over to metoprolol succinate because of patient's concern about taking metoprolol tartrate. Have also changed the dose of metoprolol succinate to 25 mg by mouth twice a day for a smoother action. Continue lisinopril. Coronary artery disease: Patient gives history of previous bypass surgery about 20 years ago and also multiple stent placement. He had a prolonged hospitalization at [facility] recently and was felt to be normal revascularize able at that time. Patient being treated with aggressive risk factor modification and medical management. Chronic kidney disease: Stage III. Avoid nephrotoxic agents. Monitor renal functions periodically. Diabetes: Discussed good control with the patient. Chronic heart failure, predominantly systolic. 2-D echo results reviewed. Patient seems to be on a good regimen. - Time Time Spent: 30 to 50 Minutes - CODE STATUS was discussed, patient remains full code. Surrogate decision-maker patient's sister. Multiple medical problems were addressed.More than 50% of the time spent coordinating care, discussing management plans with involved caregivers. Management plans discussed with involved personnels. Medical decision making was of moderate complexity. Medications reviewed and adjusted accordingly: Yes
[2016-10-05] MEDS: BUMETANIDE 1 MG TABLET PO SCH (09:39)
[2016-10-05] MEDS: METOPROLOL SUCCINATE 25 MG TAB.SR.24H PO SCH ×2 (09:41→22:32)
[2016-10-05] MEDS: PREDNISONE 10 MG TABLET PO SCH (09:41)
[2016-10-05] MEDS: RANOLAZINE 500 MG TAB.SR.12H PO SCH ×2 (09:41→22:31)
[2016-10-05] MEDS: SPIRONOLACTONE 25 MG TABLET PO SCH (09:42)
[2016-10-05] MEDS: LISINOPRIL 5 MG TABLET PO SCH (09:42)
[2016-10-05] MEDS: ASPIRIN 81 MG TABLET, CHEWABLE PO SCH (09:42)
--- NOTE | 2016-10-05 14:05 | Physician Advisory Note ---
Physician Advisor ProgressNote .: [facility] I have reviewed the medical record for this patient. Physician Advisor Statement: Possible documentation opportunities if attending agrees: 1. "Chronic Hypoxemic Respiratory Failure requiring 2L O2 at baseline, due to _ __" 2. "Chronic systolic CHF" [or, if you prefer, "HFrEF" is also acceptable for coding now] 3. "mild acute hyponatremia, suspect due to " [was 139 at last check here before this visit] 4. "Stage I decub of sacrum, present on adm" [Nsg assessment at 02:01 &ED dr note mention it] 5. "Lt hemiplegia due to ____" ? [Nsg reports this, w/strength 10/06 Lt, 11/05 Rt] 6. ? - "UTI" - covering w/Rocephin 7. "chronic opioid dependence due to ___" 8. Previous Cr here was 1.25 on 03/23/16 - is it possible pt actually has only CKD stage 1 or 2 @baseline with SMILEY already present last week at office with the Cr 1.8 then? 9. ? - "MACK" ? [Bipap is ordered] 10. Medical necessity: Please document explicitly what your concerns are r.e. this pt this stay - if you were concerned about potential serious issues such as the new EKG changes & trop I elevations, & concerned about his risks of decompensation due to his severe dz & multiple co-morbidities, & document this r.e. why you felt pt should have come in as Inpt & needed to stay for >2MNs in hospital, then pt should be appropriate for Inpatient status. (See below for possible add'l points to support Inpt.) If those conditions are not met, pt remains most appropriate for Outpt Obs. As always, if concerned about any unstable VS or abnormal labs, please comment on them & note what doing about them, & please document each day the potential clinical problems you are concerned could occur if pt not kept in hospital for tx at this time. Discussion: 66yo male w/ chronic co-morbidities including HTN, DM-2, chr syst CHF, "nonrevascularizable" CAD wCABG & stents, cauda equina w/residual LLE paralysis vs Lt hemiparesis, chronic hypoxemic resp failure requiring O2 at baseline due to , prior Cr of 1.25 on 03/23/16, but 1.8 at office last wk, unusual prior presentations to ED: 03/14/16: "moved in w/sis/spouse 02/09/16", needing RF oxycontin 80 & insulin ' til can get in w/Dr. Gutierrez". 03/23/16: "EMS states he lives in a [employer] & was calling out for help ... was naked in the bed when they arrived", EMS suspected OD of Xanax, pt stated he'd had an appt that day but no one picked him up so figured he needed to go to hospital, then dropped O2 sats, went in & out of VT & VFib, was shocked 6x & sent to [facility] for prolonged stay. Also, per initial nursing assessment at 02:01, pt reported h/o __ type Afib, GERD, GI ulcer, hypothyroidism, depression, & TIAs. - presented 4/ PM to ED w/feeling tired & reported BP low, recently begun on low dose lisinopril & metoprolol.. *In ED, per nsg note @13:51, he said BP was 91/52. Per nsg note at 15:31, pt reported BP was 80/52 at 12N for his son, & he was feeling lightheaded & like having a hard time writing his name. EMS found BP 130/70 manually. (+) HR 71, R24, BP 110/76, WBC wnl, Hgb 13.2, Na 135, K 5.2, BUN 58, Cr 1.74, glc 206, trop I #1 0.059, EKG w/Twave inversion (prior flattening) -> ED gave 500ml IVF. Attending ordered ur cx, Rocephin 2gm, held metoprolol 50mg daily & Prinivil 10mg daily, ordered Cardiology consult, continued Bumex 1mg daily, spironolactone, RAnexa, coumadin, daily prednisone 10mg, oxycodone q8h, prn po Dilaudid, O2 2L. Status: A typical SMILEY/hypotension case should be Obs until they prove need to stay more than 1 MN. This is a complex pt with unusual PMH/HPI reports, previous minimal c/o's just before severe acute cardiac problem was evidenced including cardiac arrest, DM & tremendous CAD hx, recently begun on 2 new CHF/BP meds, came in w/reports of what sounds like symptomatic hypotension along with possible SMILEY. Attending had to hold new meds & monitor pt, while tx'ing for UTI & awaiting cx results (insufficiently tx'd UTI can produce further intravascular volume depletion that can cause worsened hypotension). BPs were 130s systolic initially for EMS & ED, but he did show mild hypotension after arrival as low as 98/50 on 10/03 at 04:28, 101/48 on 10/03 at 16:00 10/03, &102/ 61 at 15:01 on 10/04 along with recurrent bradycardia in the 50s on 10/03 & also on 10/05 (as low as 50). Attending was not comfortable restarting metoprolol without bobbin doffer's input, but felt pt was able to tolerate a much tinier dose of Prinivil as of 10/05 AM. On 10/04 PM, attending added Bipap orders. On 10/05, attending added Prinivil 2.5mg daily & bobbin doffer started metoprolol 25mg q12h. Now it is prudent, in this pt with severe CAD, to monitor pt in hospital for safe VS with addition of same meds back, given risks for further cardiovascular instability before considering him stable for d/c. Pt has now already required 3 MNs of hospital care. CMS states that Medicare pts should not spend >48hrs of medically necessary care as Obs before being changed to Inpt (or d/c'd), except in "rare & unusual circumstances". Tx & close monitoring in inpatient hospital setting medically reasonable & necessary to protect pt's health, safety, & medical condition? If so, please explicitly document reasons, & then may be appropriate to change back to Inpt after all. Thanks for your help with documentation accuracy/specificity improvement! Alejandra Randall MD [facility] Physician Advisor, Fellow of Hospital Medicine
--- NOTE | 2016-10-05 20:36 | PDOC PROGRESS REPORT ---
Subjective Progress Note for:: 10/05/16 Subjective:: I am very concerned about this patient's condition, he has acute on chronic systolic heart failure, he has Pseudomonas UTI, he is not ambulatory due to cauda equina. Patient is very confused on how use his cardiac medications, he was seen by Dr. Hilton, cardiology earlier today he was initially admitted for observation but it is appropriate at this time to change to inpatient care. The blood pressure is also fluctuating and he is a high risk patient, he has a history of cardiac arrest in this hospital previously, and history of CAD with CABG and multiple stent placements Physical Exam Vital Signs: Temp Pulse Resp BP Pulse Ox 97.5 F 59 L 18 103/52 L 100 10/05/16 15:10 10/05/16 15:10 10/05/16 15:10 10/05/16 15:10 10/05/16 15:10 Intake & Output 10/04/16 10/05/16 10/06/16 06:59 06:59 06:59 Intake Total 2478 1270 890 Output Total 2475 3425 600 Balance 3 -2155 290 General appearance: PRESENT: mild distress Eye exam: PRESENT: PERRLA Respiratory exam: PRESENT: rales Cardiovascular exam: PRESENT: +S1, +S2 GI/Abdominal exam: PRESENT: soft Neurological exam: PRESENT: alert Results Laboratory Results: 10/04/16 06:57 10/03/16 09:50 10/05/16 07:40 Stool Occult Blood NEGATIVE 10/02/16 22:00 Clean Catch Midstream Urine Culture - Final Pseudomonas Aeruginosa Impressions: Chest X-Ray 10/02/16 16:18 IMPRESSION: Interval improvement. Renal Ultrasound 10/05/16 00:00 IMPRESSION: NORMAL RENAL AND BLADDER ULTRASOUND. Assessment & Plan - Diagnosis (1) Acute kidney injury superimposed on chronic kidney disease Is this a current diagnosis for this admission?: Yes (2) Chronic kidney disease, stage 3 Is this a current diagnosis for this admission?: Yes (3) Acute on chronic systolic heart failure Is this a current diagnosis for this admission?: Yes (4) Pseudomonas urinary tract infection Is this a current diagnosis for this admission?: YesPlan: The bacteria is sensitive to all antibiotic
[2016-10-05] MEDS: WARFARIN SODIUM 2.5 MG TABLET PO SCH (22:31)
[2016-10-05] MEDS: ATORVASTATIN CALCIUM 80 MG TABLET PO SCH (22:31)
[2016-10-05] MEDS: INSULIN DETEMIR 100 UNIT/ML 3 ML PEN SUBCUT SCH (22:34)
[2016-10-05] MEDS: CEFTRIAXONE 2 GM/D5W RTU 2 GM/50 ML RTUPB IV SCH (22:44)
[2016-10-06] MEDS: OXYCODONE HCL SR 40 MG TABLET PO SCH ×3 (05:23→22:46)
[2016-10-06] MEDS: ISOSORBIDE DINITRATE 10 MG TABLET PO SCH ×3 (05:24→22:46)
[2016-10-06] MEDS: GABAPENTIN 300 MG CAPSULE PO SCH ×3 (05:24→22:46)
[2016-10-06] MEDS: LANSOPRAZOLE 30 MG TAB.RAP.DR PO SCH (05:24)
[2016-10-06 07:02] LABS: PROTHROMBIN TIME 23.7 SEC (11.4-15.4)
[2016-10-06] MEDS: INSULIN LISPRO 100 UNIT/ML 3 ML VIAL SUBCUT SCH ×3 (07:56→18:16)
[2016-10-06] MEDS: LEVOTHYROXINE SODIUM 0.1 MG TABLET PO SCH (07:56)
[2016-10-06] MEDS: ASPIRIN 81 MG TABLET, CHEWABLE PO SCH (09:50)
[2016-10-06] MEDS: RANOLAZINE 500 MG TAB.SR.12H PO SCH ×2 (09:50→22:46)
[2016-10-06] MEDS: BUMETANIDE 1 MG TABLET PO SCH (09:50)
[2016-10-06] MEDS: PREDNISONE 10 MG TABLET PO SCH (09:50)
[2016-10-06] MEDS: LISINOPRIL 5 MG TABLET PO SCH (09:53)
[2016-10-06] MEDS: METOPROLOL SUCCINATE 25 MG TAB.SR.24H PO SCH ×2 (09:53→22:46)
[2016-10-06] MEDS: SPIRONOLACTONE 25 MG TABLET PO SCH (09:53)
[2016-10-06 11:21] LABS: APPEARANCE,URINE CLEAR; BILIRUBIN,URINE NEGATIVE (NEGATIVE); GLUCOSE, URINE NEGATIVE (NEGATIVE); KETONES,URINE NEGATIVE (NEGATIVE); LEUKOCYTE ESTERASE,URINE NEGATIVE (NEGATIVE); NITRITE,URINE NEGATIVE (NEGATIVE); PROTEIN,URINE NEGATIVE (NEGATIVE); URINE SPECIFIC GRAVITY 1.012; UROBILINOGEN,URINE NEGATIVE mg/dL (<2.0)
[2016-10-06 14:50] LABS: ALANINE AMINOTRANSFERASE 36 U/L (21-72); ALBUMIN 3.5 g/dL (3.5-5.0); ALKALINE PHOSPHATASE 67 U/L (38-126); ANION GAP 12 (5-19); ASPARTATE AMINO TRANSFERASE 31 U/L (17-59); BILIRUBIN,DIRECT 0.4 mg/dL (0.0-0.4); BILIRUBIN,TOTAL 0.8 mg/dL (0.2-1.3); BLOOD UREA NITROGEN 72 mg/dL (7-20); CARBON DIOXIDE 25 mmol/L (22-30); CHLORIDE 97 mmol/L (98-107); CREATININE RESULT 1.62 mg/dL (0.52-1.25); GLUCOSE 90 mg/dL (75-110); SODIUM 134.4 mmol/L (137-145); TOTAL PROTEIN 6.2 g/dL (6.3-8.2)
--- NOTE | 2016-10-06 17:22 | PDOC PROGRESS REPORT ---
Subjective Progress Note for:: 10/06/16 Subjective:: The kidney function is worse today than when he was admitted, and is more confused today than when he was admitted, the confusion is probably from UTI due to Pseudomonas. She is on IV antibiotic for UTI Physical Exam Vital Signs: Temp Pulse Resp BP Pulse Ox 97.8 F 57 L 18 94/44 L 100 10/06/16 16:25 10/06/16 16:25 10/06/16 16:25 10/06/16 16:25 10/06/16 16:25 General appearance: PRESENT: mild distress Eye exam: PRESENT: PERRLA Respiratory exam: PRESENT: clear to auscultation rebecca Cardiovascular exam: PRESENT: +S1, +S2 GI/Abdominal exam: PRESENT: soft Neurological exam: PRESENT: alert Results Impressions: Chest X-Ray 10/02/16 16:18 IMPRESSION: Interval improvement. Renal Ultrasound 10/05/16 00:00 IMPRESSION: NORMAL RENAL AND BLADDER ULTRASOUND. Assessment & Plan - Diagnosis (1) Acute kidney injury superimposed on chronic kidney disease Is this a current diagnosis for this admission?: Yes (2) Chronic kidney disease, stage 3 Is this a current diagnosis for this admission?: Yes (3) Acute on chronic systolic heart failure Is this a current diagnosis for this admission?: Yes (4) Pseudomonas urinary tract infection Is this a current diagnosis for this admission?: Yes
--- NOTE | 2016-10-06 20:21 | PDOC PROGRESS REPORT ---
Subjective Progress Note for:: 10/06/16 Subjective:: Patient seems to be about the same. He was noted to be a stressed-out. Pt is denying any chest arm or neck discomfort. Patient denying any PND, orthopnea. Patient denied any sustained palpitations, dizziness, syncope, near syncope. Patient denying any fever chills. Patient denying any other significant discomfort. Patient is maintaining sinus rhythm. Review of systems: Rest review of systems negative. Medications: Medications have been reviewed. Physical Exam Vital Signs: Temp Pulse Resp BP Pulse Ox 97.3 F 55 L 18 122/55 L 97 10/06/16 19:33 10/06/16 19:33 10/06/16 19:33 10/06/16 19:33 10/06/16 19:33 Intake & Output 10/05/16 10/06/16 10/07/16 06:59 06:59 06:59 Intake Total 980 Output Total 700 Balance 280 Exam: GENERAL: well-nourished and in no acute distress. Alert and oriented x3 HEAD: Atraumatic, normocephalic. EYES: Pupils equal round and reactive to light, extraocular movements intact, sclera anicteric, conjunctiva are normal. ENT: TMs normal, nares patent, oropharynx clear without exudates. Moist mucous membranes. No oral ulcerations or bleeding gums noted NECK: supple without lymphadenopathy. Trachea is central. No cervical or axillary lymphadenopathy noted. Carotids are 2+, JVD WNL LUNGS: Respiration seems nonlabored, no significant accessory muscle action noted. Breath sounds clear to auscultation bilaterally and equal noted. No wheezes rales or rhonchi noted. No significant dullness noted on percussion. CHEST: Palpation of the chest wall shows no significant chest wall tenderness. No other significant abnormalities noted. HEART: [place] [employer], No PSH, 1/6 MEAGHAN aortic area, 1/6 coleman systolic murmur mitral area, no rubs, no gallops. ABDOMEN: Soft, no significant tenderness appreciated, normoactive bowel sounds. No guarding, no rebound. No rigidity noted . No masses appreciated. EXTREMITIES: Pedal pulses are 1-2+, no calf tenderness noted. No clubbing or cyanosis.trace pedal edema noted NEUROLOGICAL: Focused neurological exam showed bilateral lower extremity weakness from cauda equina syndrome. PSYCH: Normal mood, normal affect. Judgment and insight within normal limits. SKIN: No significant ecchymosis, rash, ulcerations or signs of pruritus noted. MUSCULOSKELETAL EXAM: No significant joint swelling noted. Muscle weakness noted both lower extremity. Results Impressions: Chest X-Ray 10/02/16 16:18 IMPRESSION: Interval improvement. Renal Ultrasound 10/05/16 00:00 IMPRESSION: NORMAL RENAL AND BLADDER ULTRASOUND. Assessment & Plan - Diagnosis (1) Low blood pressure Qualifiers: Hypotension type: unspecified hypotension type Qualified Code(s): I95.9 - Hypotension, unspecified Is this a current diagnosis for this admission?: Yes (2) Coronary artery disease Qualifiers: Coronary Disease-Associated Artery/Lesion type: unspecified vessel or lesion type Associated angina: angina presence unspecified Is this a current diagnosis for this admission?: Yes (3) Chronic kidney disease, stage 3 Is this a current diagnosis for this admission?: Yes (4) Chronic systolic heart failure Is this a current diagnosis for this admission?: Yes (5) Chronic kidney disease Qualifiers: Chronic kidney disease stage: stage 3 (moderate) Qualified Code(s): N18.3 - Chronic kidney disease, stage 3 (moderate) Is this a current diagnosis for this admission?: Yes - Notes Notes: Hypotension: This has improved. Patient is at somewhat at risk because patient tends to sit still or long time and has cauda equina syndrome. It's best to avoid by mouth vasodilator in this patient. Have switched patient over to metoprolol succinate because of patient's concern about taking metoprolol tartrate. Have also changed the dose of metoprolol succinate to 25 mg by mouth twice a day for a smoother action. Continue lisinopril. Patient seems to be tolerating the blood pressure medications. Coronary artery disease: Patient gives history of previous bypass surgery about 20 years ago and also multiple stent placement. He had a prolonged hospitalization at [facility] recently and was felt to be normal revascularize able at that time. Patient being treated with aggressive risk factor modification and medical management. Chronic kidney disease: Stage III. Avoid nephrotoxic agents. Monitor renal functions periodically. Diabetes: Discussed good control with the patient. Chronic heart failure, predominantly systolic. 2-D echo results reviewed. Patient seems to be on a good regimen. We'll further optimize regimen as tolerated. - Time Time with patient: 15-25 minutes - CODE STATUS was discussed, patient remains full code. Surrogate decision-maker unchanged. Multiple medical problems were addressed.More than 50% of the time spent coordinating care, discussing management plans with involved caregivers. Management plans discussed with involved personnels. Medical decision making was of moderate complexity. Medications reviewed and adjusted accordingly: Yes
[2016-10-06] MEDS: ATORVASTATIN CALCIUM 80 MG TABLET PO SCH (22:45)
[2016-10-06] MEDS: INSULIN DETEMIR 100 UNIT/ML 3 ML PEN SUBCUT SCH (22:46)
[2016-10-06] MEDS: WARFARIN SODIUM 2.5 MG TABLET PO SCH (22:46)
[2016-10-06] MEDS: INSULIN LISPRO 100 UNIT/ML 3 ML VIAL SUBCUT PRN (22:58)
[2016-10-06] MEDS: CEFTRIAXONE 2 GM/D5W RTU 2 GM/50 ML RTUPB IV SCH (23:02)
[2016-10-07 05:30] LABS: PROTHROMBIN TIME 22.8 SEC (11.4-15.4)
[2016-10-07] MEDS: OXYCODONE HCL SR 40 MG TABLET PO SCH ×3 (05:45→21:46)
[2016-10-07] MEDS: GABAPENTIN 300 MG CAPSULE PO SCH ×3 (05:45→21:45)
[2016-10-07] MEDS: LANSOPRAZOLE 30 MG TAB.RAP.DR PO SCH (05:45)
[2016-10-07] MEDS: ISOSORBIDE DINITRATE 10 MG TABLET PO SCH ×3 (05:45→21:51)
[2016-10-07] MEDS: INSULIN LISPRO 100 UNIT/ML 3 ML VIAL SUBCUT SCH ×3 (08:34→17:50)
[2016-10-07] MEDS: LEVOTHYROXINE SODIUM 0.1 MG TABLET PO SCH (08:34)
[2016-10-07] MEDS: BUMETANIDE 1 MG TABLET PO SCH (09:49)
[2016-10-07] MEDS: SPIRONOLACTONE 25 MG TABLET PO SCH (09:50)
[2016-10-07] MEDS: METOPROLOL SUCCINATE 25 MG TAB.SR.24H PO SCH ×2 (09:50→21:45)
[2016-10-07] MEDS: RANOLAZINE 500 MG TAB.SR.12H PO SCH ×2 (09:51→21:51)
[2016-10-07] MEDS: LISINOPRIL 5 MG TABLET PO SCH (09:51)
[2016-10-07] MEDS: ASPIRIN 81 MG TABLET, CHEWABLE PO SCH (09:51)
[2016-10-07] MEDS: PREDNISONE 10 MG TABLET PO SCH (09:52)
--- NOTE | 2016-10-07 17:06 | PDOC PROGRESS REPORT ---
Subjective Progress Note for:: 10/07/16 Subjective:: He was seen by the bedside, IV access is a problem for him, he is presently on IV ceftazidime for Pseudomonas UTI, the pathogen is sensitive to Cipro Physical Exam Vital Signs: Temp Pulse Resp BP Pulse Ox 97.8 F 67 17 117/67 96 10/07/16 16:00 10/07/16 16:00 10/07/16 16:00 10/07/16 16:00 10/07/16 16:00 Intake & Output 10/06/16 10/07/16 10/08/16 06:59 06:59 06:59 Intake Total 1480 700 Output Total 1120 800 Balance 360 -100 General appearance: PRESENT: no acute distress Eye exam: PRESENT: PERRLA Respiratory exam: PRESENT: clear to auscultation rebecca Cardiovascular exam: PRESENT: +S1, +S2 GI/Abdominal exam: PRESENT: soft Neurological exam: PRESENT: alert, CN II-XII grossly intact Results Impressions: Chest X-Ray 10/02/16 16:18 IMPRESSION: Interval improvement. Renal Ultrasound 10/05/16 00:00 IMPRESSION: NORMAL RENAL AND BLADDER ULTRASOUND. Assessment & Plan - Diagnosis (1) Acute kidney injury superimposed on chronic kidney disease Is this a current diagnosis for this admission?: Yes (2) Chronic kidney disease, stage 3 Is this a current diagnosis for this admission?: Yes (3) Acute on chronic systolic heart failure Is this a current diagnosis for this admission?: Yes (4) Pseudomonas urinary tract infection Is this a current diagnosis for this admission?: YesPlan: Discontinue IV ceftazidime and start p.o. Cipro
[2016-10-07] MEDS ORDERED: CEFTAZIDIME PENTAHYDRATE 1 GM in DEXTROSE 5%-WATER 50 ML IV SCH (18:00)
[2016-10-07] MEDS: CIPROFLOXACIN HCL 500 MG TABLET PO SCH (21:44)
[2016-10-07] MEDS: ATORVASTATIN CALCIUM 80 MG TABLET PO SCH (21:45)
[2016-10-07] MEDS: WARFARIN SODIUM 2.5 MG TABLET PO SCH (21:46)
[2016-10-07] MEDS: INSULIN DETEMIR 100 UNIT/ML 3 ML PEN SUBCUT SCH (21:55)
[2016-10-08] MEDS: HYDROMORPHONE HCL 2 MG TABLET PO PRN (04:39)
[2016-10-08] MEDS: OXYCODONE HCL SR 40 MG TABLET PO SCH ×3 (05:57→22:32)
[2016-10-08] MEDS: GABAPENTIN 300 MG CAPSULE PO SCH ×3 (05:57→22:32)
[2016-10-08] MEDS: LANSOPRAZOLE 30 MG TAB.RAP.DR PO SCH (05:57)
[2016-10-08] MEDS: ISOSORBIDE DINITRATE 10 MG TABLET PO SCH ×3 (05:57→22:32)
[2016-10-08 06:11] LABS: APPEARANCE,URINE CLEAR; BILIRUBIN,URINE NEGATIVE (NEGATIVE); GLUCOSE, URINE NEGATIVE (NEGATIVE); KETONES,URINE NEGATIVE (NEGATIVE); LEUKOCYTE ESTERASE,URINE NEGATIVE (NEGATIVE); NITRITE,URINE NEGATIVE (NEGATIVE); PROTEIN,URINE NEGATIVE (NEGATIVE); URINE SPECIFIC GRAVITY 1.012; UROBILINOGEN,URINE NEGATIVE mg/dL (<2.0)
[2016-10-08] MEDS: CIPROFLOXACIN HCL 500 MG TABLET PO SCH ×2 (07:59→22:32)
[2016-10-08] MEDS: LEVOTHYROXINE SODIUM 0.1 MG TABLET PO SCH (07:59)
[2016-10-08] MEDS: INSULIN LISPRO 100 UNIT/ML 3 ML VIAL SUBCUT SCH ×3 (08:00→17:15)
[2016-10-08 09:03] LABS: PROTHROMBIN TIME 22.3 SEC (11.4-15.4)
[2016-10-08] MEDS: BACLOFEN 10 MG TABLET PO PRN (09:55)
[2016-10-08] MEDS: ASPIRIN 81 MG TABLET, CHEWABLE PO SCH (09:56)
[2016-10-08] MEDS: LISINOPRIL 5 MG TABLET PO SCH (09:56)
[2016-10-08] MEDS: PREDNISONE 10 MG TABLET PO SCH (09:58)
[2016-10-08] MEDS: RANOLAZINE 500 MG TAB.SR.12H PO SCH ×2 (09:58→22:33)
[2016-10-08] MEDS: METOPROLOL SUCCINATE 25 MG TAB.SR.24H PO SCH ×2 (09:58→22:33)
[2016-10-08] MEDS: SPIRONOLACTONE 25 MG TABLET PO SCH (09:58)
[2016-10-08] MEDS: BUMETANIDE 1 MG TABLET PO SCH (09:59)
--- NOTE | 2016-10-08 12:47 | PDOC PROGRESS REPORT ---
Subjective Progress Note for:: 10/07/16 Subjective:: Patient seems to be about the same. He was noted to be a stressed-out. Pt is denying any chest arm or neck discomfort. Patient denying any PND, orthopnea. Patient denied any sustained palpitations, dizziness, syncope, near syncope. Patient denying any fever chills. Patient denying any other significant discomfort. Patient is maintaining sinus rhythm. Review of systems: Rest review of systems negative. Medications: Medications have been reviewed. Physical Exam Vital Signs: Temp Pulse Resp BP Pulse Ox 97.8 F 67 17 117/67 96 10/07/16 16:00 10/07/16 16:00 10/07/16 16:00 10/07/16 16:00 10/07/16 16:00 Intake & Output 10/06/16 10/07/16 10/08/16 06:59 06:59 06:59 Intake Total 1480 700 Output Total 1120 800 Balance 360 -100 Exam: GENERAL: well-nourished and in no acute distress. Alert and oriented x3 HEAD: Atraumatic, normocephalic. EYES: Pupils equal round and reactive to light, extraocular movements intact, sclera anicteric, conjunctiva are normal. ENT: TMs normal, nares patent, oropharynx clear without exudates. Moist mucous membranes. No oral ulcerations or bleeding gums noted NECK: supple without lymphadenopathy. Trachea is central. No cervical or axillary lymphadenopathy noted. Carotids are 2+, JVD WNL LUNGS: Respiration seems nonlabored, no significant accessory muscle action noted. Breath sounds clear to auscultation bilaterally and equal noted. No wheezes rales or rhonchi noted. No significant dullness noted on percussion. CHEST: Palpation of the chest wall shows no significant chest wall tenderness. No other significant abnormalities noted. 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 ABDOMEN: Soft, no significant tenderness appreciated, normoactive bowel sounds. No guarding, no rebound. No rigidity noted . No masses appreciated. EXTREMITIES: Pedal pulses are 1-2+, no calf tenderness noted. No clubbing or cyanosis.trace pedal edema noted NEUROLOGICAL: Focused neurological exam showed bilateral lower extremity weakness from cauda equina syndrome. PSYCH: Normal mood, normal affect. Judgment and insight within normal limits. SKIN: No significant ecchymosis, rash, ulcerations or signs of pruritus noted. MUSCULOSKELETAL EXAM: No significant joint swelling noted. Muscle weakness noted both lower extremity. Results Impressions: Chest X-Ray 10/02/16 16:18 IMPRESSION: Interval improvement. Renal Ultrasound 10/05/16 00:00 IMPRESSION: NORMAL RENAL AND BLADDER ULTRASOUND. Assessment & Plan - Diagnosis (1) Low blood pressure Qualifiers: Hypotension type: unspecified hypotension type Qualified Code(s): I95.9 - Hypotension, unspecified Is this a current diagnosis for this admission?: Yes (2) Coronary artery disease Qualifiers: Coronary Disease-Associated Artery/Lesion type: unspecified vessel or lesion type Associated angina: angina presence unspecified Is this a current diagnosis for this admission?: Yes (3) Chronic kidney disease, stage 3 Is this a current diagnosis for this admission?: Yes (4) Chronic systolic heart failure Is this a current diagnosis for this admission?: Yes (5) Chronic kidney disease Qualifiers: Chronic kidney disease stage: stage 3 (moderate) Qualified Code(s): N18.3 - Chronic kidney disease, stage 3 (moderate) Is this a current diagnosis for this admission?: Yes - Notes Notes: Patient claims to have been stable. His blood pressure has improved, but still on the low side. He does not want us to increase his blood pressure medication. He denied any recurrence of chest pain. His kidney disease been stable. He seems compensated as regards congestive heart failure. Believe patient is stable. Patient claims that he is being considered for jail placement. Patient's medications were reviewed. No medication changes were performed. - Time Time with patient: 15-25 minutes - CODE STATUS was discussed, patient remains full code. Surrogate decision-maker unchanged. Multiple medical problems were addressed.More than 50% of the time spent coordinating care, discussing management plans with involved caregivers. Management plans discussed with involved personnels. Medical decision making was of moderate to high complexity , patient's has multiple severe comorbidities. Medications reviewed and adjusted accordingly: Yes
--- NOTE | 2016-10-08 12:52 | PDOC PROGRESS REPORT ---
Subjective Progress Note for:: 10/08/16 Subjective:: Pt is denying any chest arm or neck discomfort. Patient denying any PND, orthopnea. Patient denied any sustained palpitations, dizziness, syncope, near syncope. Patient denying any fever chills. Patient denying any other significant discomfort. Patient claims that he slept better yesterday. Patient is maintaining sinus rhythm. Review of systems: Rest review of systems negative. Medications: Medications have been reviewed. Physical Exam Vital Signs: Temp Pulse Resp BP Pulse Ox 97.8 F 60 18 119/64 100 10/08/16 11:39 10/08/16 11:39 10/08/16 11:39 10/08/16 11:39 10/08/16 11:39 Intake & Output 10/07/16 10/08/16 10/09/16 06:59 06:59 06:59 Intake Total 1480 1090 Output Total 1120 1700 Balance 360 -610 Exam: GENERAL: well-nourished and in no acute distress. Alert and oriented x3 HEAD: Atraumatic, normocephalic. EYES: Pupils equal round and reactive to light, extraocular movements intact, sclera anicteric, conjunctiva are normal. ENT: TMs normal, nares patent, oropharynx clear without exudates. Moist mucous membranes. No oral ulcerations or bleeding gums noted NECK: supple without lymphadenopathy. Trachea is central. No cervical or axillary lymphadenopathy noted. Carotids are 2+, JVD WNL LUNGS: Respiration seems nonlabored, no significant accessory muscle action noted. Breath sounds clear to auscultation bilaterally and equal noted. No wheezes rales or rhonchi noted. No significant dullness noted on percussion. CHEST: Palpation of the chest wall shows no significant chest wall tenderness. No other significant abnormalities noted. HEART: [place] [employer], No PSH, 1/6 MEAGHAN aortic area, 1/6 coleman systolic murmur mitral area, no rubs, no gallops. ABDOMEN: Soft, no significant tenderness appreciated, normoactive bowel sounds. No guarding, no rebound. No rigidity noted . No masses appreciated. EXTREMITIES: Pedal pulses are 1-2+, no calf tenderness noted. No clubbing or cyanosis.trace pedal edema noted NEUROLOGICAL: Focused neurological exam showed bilateral lower extremity weakness from cauda equina syndrome. PSYCH: Normal mood, normal affect. Judgment and insight within normal limits. SKIN: No significant ecchymosis, rash, ulcerations or signs of pruritus noted. MUSCULOSKELETAL EXAM: No significant joint swelling noted. Muscle weakness noted both lower extremity. Results Laboratory Results: 10/07/16 05:39 Urine Color YELLOW Urine Appearance CLEAR Urine pH 6.0 Ur Specific [place] 1.012 Urine Protein NEGATIVE Urine Glucose (UA) NEGATIVE Urine Ketones NEGATIVE Urine Blood NEGATIVE Urine Nitrite NEGATIVE Ur Leukocyte Esterase NEGATIVE Urine WBC (Auto) 2 Impressions: Chest X-Ray 10/02/16 16:18 IMPRESSION: Interval improvement. Renal Ultrasound 10/05/16 00:00 IMPRESSION: NORMAL RENAL AND BLADDER ULTRASOUND. Assessment & Plan - Diagnosis (1) Low blood pressure Qualifiers: Hypotension type: unspecified hypotension type Qualified Code(s): I95.9 - Hypotension, unspecified Is this a current diagnosis for this admission?: Yes (2) Coronary artery disease Qualifiers: Coronary Disease-Associated Artery/Lesion type: unspecified vessel or lesion type Associated angina: angina presence unspecified Is this a current diagnosis for this admission?: Yes (3) Chronic kidney disease, stage 3 Is this a current diagnosis for this admission?: Yes (4) Chronic systolic heart failure Is this a current diagnosis for this admission?: Yes (5) Chronic kidney disease Qualifiers: Chronic kidney disease stage: stage 3 (moderate) Qualified Code(s): N18.3 - Chronic kidney disease, stage 3 (moderate) Is this a current diagnosis for this admission?: Yes - Notes Notes: Patient claims to have been stable. His blood pressure has improved. He denied any recurrence of chest pain. His kidney disease been stable. He seems compensated as regards congestive heart failure. Believe patient is stable. Will repeat an EKG in the morning. Patient claims that he is being considered for correction placement. Patient does not want any further adjustment of his blood pressure medication. At this point will sign off. Will reconsult if needed. Patient given my card. He wishes to follow up with me for scheduling a sleep study as he claims that he benefited from CPAP use during this hospitalization. - Time Time with patient: 15-25 minutes Medications reviewed and adjusted accordingly: Yes
--- NOTE | 2016-10-08 20:26 | PDOC PROGRESS REPORT ---
Subjective Progress Note for:: 10/08/16 Subjective:: Patient was seen by the bedside he is presently optimized and we are waiting on discharge planning to [facility] Physical Exam Vital Signs: Temp Pulse Resp BP Pulse Ox 97.8 F 61 18 119/64 100 10/08/16 11:39 10/08/16 14:00 10/08/16 11:39 10/08/16 11:39 10/08/16 11:39 Intake & Output 10/07/16 10/08/16 10/09/16 06:59 06:59 06:59 Intake Total 1480 1090 895 Output Total 1120 1700 Balance 360 -610 895 General appearance: PRESENT: no acute distress, well-developed, well-nourished Head exam: PRESENT: atraumatic, normocephalic Eye exam: PRESENT: conjunctiva pink, EOMI, PERRLA Ear exam: PRESENT: normal external ear exam Mouth exam: PRESENT: moist, tongue midline Neck exam: PRESENT: full ROM Cardiovascular exam: PRESENT: RRR, +S1, +S2 Pulses: PRESENT: normal dorsalis pedis pul, +2 pedal pulses bilateral Vascular exam: PRESENT: normal capillary refill GI/Abdominal exam: PRESENT: normal bowel sounds, soft Rectal exam: PRESENT: deferred Neurological exam: PRESENT: alert, awake, oriented to person, oriented to place , oriented to time, oriented to situation, CN II-XII grossly intact. ABSENT: motor sensory deficit Psychiatric exam: PRESENT: appropriate affect, normal mood Skin exam: PRESENT: dry, intact, warm Results Laboratory Results: 10/07/16 05:39 Urine Color YELLOW Urine Appearance CLEAR Urine pH 6.0 Ur Specific [place] 1.012 Urine Protein NEGATIVE Urine Glucose (UA) NEGATIVE Urine Ketones NEGATIVE Urine Blood NEGATIVE Urine Nitrite NEGATIVE Ur Leukocyte Esterase NEGATIVE Urine WBC (Auto) 2 Impressions: Chest X-Ray 10/02/16 16:18 IMPRESSION: Interval improvement. Renal Ultrasound 10/05/16 00:00 IMPRESSION: NORMAL RENAL AND BLADDER ULTRASOUND. Assessment & Plan - Diagnosis (1) Acute kidney injury superimposed on chronic kidney disease Is this a current diagnosis for this admission?: Yes (2) Chronic kidney disease, stage 3 Is this a current diagnosis for this admission?: Yes (3) Acute on chronic systolic heart failure Is this a current diagnosis for this admission?: Yes (4) Pseudomonas urinary tract infection Is this a current diagnosis for this admission?: Yes
[2016-10-08] MEDS: ATORVASTATIN CALCIUM 80 MG TABLET PO SCH (22:32)
[2016-10-08] MEDS: WARFARIN SODIUM 2.5 MG TABLET PO SCH (22:32)
[2016-10-08] MEDS: INSULIN DETEMIR 100 UNIT/ML 3 ML PEN SUBCUT SCH (22:40)
--- NOTE | 2016-10-09 06:08 | EKG REPORT ---
SEVERITY:- ABNORMAL ECG - SINUS RHYTHM NONSPECIFIC INTRAVENTRICULAR CONDUCTION DELAY INFERIOR INFARCT, AGE INDETERMINATE : Confirmed by: Zayra Hilton 09-Oct-2016 06:08:14
[2016-10-09] MEDS: LANSOPRAZOLE 30 MG TAB.RAP.DR PO SCH (06:48)
[2016-10-09] MEDS: GABAPENTIN 300 MG CAPSULE PO SCH ×3 (06:48→23:10)
[2016-10-09] MEDS: OXYCODONE HCL SR 40 MG TABLET PO SCH ×3 (06:48→23:09)
[2016-10-09] MEDS: ISOSORBIDE DINITRATE 10 MG TABLET PO SCH ×3 (06:48→23:11)
[2016-10-09] MEDS: INSULIN LISPRO 100 UNIT/ML 3 ML VIAL SUBCUT SCH ×3 (07:54→17:12)
[2016-10-09] MEDS: CIPROFLOXACIN HCL 500 MG TABLET PO SCH ×2 (07:54→23:10)
[2016-10-09] MEDS: LEVOTHYROXINE SODIUM 0.1 MG TABLET PO SCH (07:54)
[2016-10-09] MEDS: ASPIRIN 81 MG TABLET, CHEWABLE PO SCH (09:31)
[2016-10-09] MEDS: METOPROLOL SUCCINATE 25 MG TAB.SR.24H PO SCH ×2 (09:31→23:09)
[2016-10-09] MEDS: PREDNISONE 10 MG TABLET PO SCH (09:31)
[2016-10-09] MEDS: SPIRONOLACTONE 25 MG TABLET PO SCH (09:32)
[2016-10-09] MEDS: LISINOPRIL 5 MG TABLET PO SCH (09:32)
[2016-10-09] MEDS: BUMETANIDE 1 MG TABLET PO SCH (09:32)
[2016-10-09] MEDS: RANOLAZINE 500 MG TAB.SR.12H PO SCH ×2 (09:33→23:10)
--- NOTE | 2016-10-09 10:25 | PDOC PROGRESS REPORT ---
Subjective Progress Note for:: 10/09/16 Subjective:: Patient reported episode of "out of body sensation" last night. He was not using his BiPAP device while sleep and woke up very confused. Admitted to history of sleep apnea. He is currently lucid and appropriate in answering question. He denied any chest pain. No nausea, vomiting or abdominal pain. No fever or chills. Patient is currently awaiting bed allocation regarding transfer to SNF. Physical Exam Vital Signs: Temp Pulse Resp BP Pulse Ox 98.2 F 58 L 18 136/89 H 100 10/09/16 07:55 10/09/16 08:00 10/09/16 07:55 10/09/16 07:55 10/09/16 07:55 Intake & Output 10/08/16 10/09/16 10/10/16 06:59 06:59 06:59 Intake Total 1090 1117 Output Total 1700 1225 Balance -610 -108 General appearance: PRESENT: no acute distress, obese, well-developed, well- nourished Head exam: PRESENT: atraumatic, normocephalic Eye exam: PRESENT: conjunctiva pink, EOMI, PERRLA. ABSENT: scleral icterus Mouth exam: PRESENT: moist Respiratory exam: PRESENT: clear to auscultation rebecca Cardiovascular exam: PRESENT: RRR. ABSENT: diastolic murmur, rubs, systolic murmur GI/Abdominal exam: PRESENT: normal bowel sounds, soft. ABSENT: distended, guarding, mass, organolmegaly, rebound, tenderness Extremities exam: PRESENT: full ROM Musculoskeletal exam: PRESENT: deformity - related to joints involvement with arthritis Neurological exam: PRESENT: alert, awake, oriented to person, oriented to place , oriented to time, oriented to situation, CN II-XII grossly intact. ABSENT: motor sensory deficit Psychiatric exam: PRESENT: appropriate affect, normal mood. ABSENT: homicidal ideation, suicidal ideation Skin exam: PRESENT: dry, intact, warm. ABSENT: cyanosis, rash Results Laboratory Results: Reviewed on [employer] and form significant part of my medical decision making. Impressions: Chest X-Ray 10/02/16 16:18 IMPRESSION: Interval improvement. Renal Ultrasound 10/05/16 00:00 IMPRESSION: NORMAL RENAL AND BLADDER ULTRASOUND. Assessment & Plan - Diagnosis (1) Acute kidney injury superimposed on chronic kidney disease Is this a current diagnosis for this admission?: YesPlan: See covering attending physician orders (2) Acute on chronic systolic heart failure Is this a current diagnosis for this admission?: YesPlan: See covering attending physician orders (3) Chronic kidney disease, stage 3 Is this a current diagnosis for this admission?: YesPlan: See covering attending physician orders (4) Pseudomonas urinary tract infection Is this a current diagnosis for this admission?: YesPlan: See covering attending physician orders (5) Sleep disturbance, unspecified Is this a current diagnosis for this admission?: YesPlan: In view of his comorbidities, obese state and related sleep event patient will benefit from sleep study for further evaluation of possible sleep apnea and need for CPAP machine usage.I did emphasized compliance with BiPAP usage when sleeping. I discussed case with respiratory therapist and assigned nursing staff. - Time Time Spent with patient: 25-34 minutes Medications reviewed and adjusted accordingly: Yes Anticipated discharge: SNF Within: Other - Inpatient Certification Based on my medical assessment, after consideration of the patient's comorbidities, presenting symptoms, or acuity I expect that the services needed warrant INPATIENT care.: Yes I certify that my determination is in accordance with my understanding of Medicare's requirements for reasonable and necessary INPATIENT services [42 CFR 412.3e].: Yes Medical Necessity: Need Close Monitoring Due to Risk of Patient Decompensation, Need For Continuous Telemetry Monitoring, Risk of Complication if Not Cared For in Hospital Post Hospital Care: D/C or Transfer Summary - Plan Summary Plan Summary: See covering attending physician orders
[2016-10-09] MEDS: ATORVASTATIN CALCIUM 80 MG TABLET PO SCH (23:09)
[2016-10-09] MEDS: WARFARIN SODIUM 2.5 MG TABLET PO SCH (23:09)
[2016-10-09] MEDS: INSULIN LISPRO 100 UNIT/ML 3 ML VIAL SUBCUT PRN (23:11)
[2016-10-09] MEDS: INSULIN DETEMIR 100 UNIT/ML 3 ML PEN SUBCUT SCH (23:11)
--- NOTE | 2016-10-10 00:18 | PROGRESS NOTE E ---
Progress Note NAME: KARISSA JHA : 1950 AGE: 66Y DATE: 10/09/2016 ROOM: 530 SUBJECTIVE: The patient denies any chest pain or discomfort. There is no arm or leg pain. He denies any palpitations. There is no shortness of breath. There is no PND or orthopnea. There is no dizziness or syncope. There is no fever, chills or rigors. He states that he did sleep well last night. The patient is in sinus rhythm without any arrhythmias. OBJECTIVE: GENERAL: The patient is mildly obese in no acute distress. He is well groomed. VITAL SIGNS: He is afebrile with a temperature of 97.9 degrees Fahrenheit, blood pressure is 103/44, respirations are 18 per minute, O2 sats are 100% on 3 L of nasal cannula. HEENT: Head is atraumatic, normocephalic. Eyes: Pupils are equal, round, regular and reactive to light and accommodation. Extraocular movements are normal. Sclerae is without any icterus. Conjunctivae are pink. ENT is negative. NECK: Supple without lymphadenopathy. There is no JVD. Trachea is central. There is no cervical or axillary lymphadenopathy. Carotids are equal without any bruits. LUNGS: Respirations are nonlabored. There are no accessory muscles of respirations in use. Breath sounds are clear to auscultation bilaterally and equal. There is no chest wall tenderness. HEART: S1, S2 are heard. There is a systolic murmur in the lower sternal border and the apex. There is no rub. There is no S3 gallop. There is no S4 gallop. EXTREMITIES: There is no clubbing or cyanosis. There is no pedal edema. Pedal pulses are mildly reduced. The femorals are diminished without any femoral bruits. CENTRAL NERVOUS SYSTEM: The patient is conscious, awake, alert and oriented with no focal deficits. PSYCHIATRIC: The patient's judgment and insight are intact. His affect is normal. The patient's intake is 1117 mL, output is 1225 mL. EKG: Sinus rhythm, nonspecific IVCD, probable inferior infarct, old. Blood glucose is 143. IMPRESSION: 1. HYPOTENSION. Blood pressure better now. 2. CORONARY ARTERY DISEASE. The patient has no chest pain or discomfort, no anginal symptoms. 3. CHRONIC KIDNEY DISEASE STAGE 3. 4. CHRONIC SYSTOLIC HEART FAILURE. RECOMMENDATION: His blood pressure is much improved. There is no chest pain. His kidney disease has been stable. With regard to his heart failure, he is compensated. At this point, Dr. Hilton signed off; hence, will not charge the patient. Note, patient seen at 12 noon. Twenty-five minutes spent on the patient with more than 50% of the time spent on direct patient care. Will not charge the patient since Dr. Hilton had signed off. DICTATING PHYSICIAN: ASHLEY LAM M.D. [id number] PHY#: [id number] ID: [id number] JOB#: [id number] ACCT: [id number] cc: >
[2016-10-10] MEDS: ISOSORBIDE DINITRATE 10 MG TABLET PO SCH ×3 (06:00→22:20)
[2016-10-10] MEDS: LANSOPRAZOLE 30 MG TAB.RAP.DR PO SCH (06:55)
[2016-10-10] MEDS: GABAPENTIN 300 MG CAPSULE PO SCH ×3 (06:55→22:19)
[2016-10-10] MEDS: CIPROFLOXACIN HCL 500 MG TABLET PO SCH ×2 (07:33→22:18)
[2016-10-10] MEDS: LEVOTHYROXINE SODIUM 0.1 MG TABLET PO SCH (07:33)
[2016-10-10] MEDS: INSULIN LISPRO 100 UNIT/ML 3 ML VIAL SUBCUT SCH ×3 (07:34→16:46)
[2016-10-10 07:40] LABS: HEMATOCRIT 33.2 % (37.9-51.0); HEMOGLOBIN 11.2 g/dL (13.5-17.0); HGB HCT DIFFERENCE 0.4; MEAN CORPUSCULAR HEMOGLOBIN 26.9 pg (27.0-33.4); MEAN CORPUSCULAR HGB CONC 33.8 g/dL (32.0-36.0); MEAN CORPUSCULAR VOLUME 79 fl (80-97); RED BLOOD COUNT 4.19 10^6/uL (4.35-5.55); RED CELL DISTRIBUTION WIDTH 17.6 % (11.5-14.0); WHITE BLOOD COUNT 10.6 10^3/uL (4.0-10.5)
[2016-10-10 08:07] LABS: ANION GAP 10 (5-19); BLOOD UREA NITROGEN 54 mg/dL (7-20); CALCIUM 9.6 mg/dL (8.4-10.2); CARBON DIOXIDE 24 mmol/L (22-30); CHLORIDE 102 mmol/L (98-107); CREATININE RESULT 1.24 mg/dL (0.52-1.25); GLUCOSE 104 mg/dL (75-110); POTASSIUM 4.6 mmol/L (3.6-5.0); SODIUM 135.9 mmol/L (137-145)
[2016-10-10] MEDS: PREDNISONE 10 MG TABLET PO SCH (09:15)
[2016-10-10] MEDS: RANOLAZINE 500 MG TAB.SR.12H PO SCH ×2 (09:16→22:20)
[2016-10-10] MEDS: BUMETANIDE 1 MG TABLET PO SCH (09:16)
[2016-10-10] MEDS: SPIRONOLACTONE 25 MG TABLET PO SCH (09:16)
[2016-10-10] MEDS: ASPIRIN 81 MG TABLET, CHEWABLE PO SCH (09:16)
[2016-10-10] MEDS: OXYCODONE HCL SR 40 MG TABLET PO SCH ×3 (09:17→22:20)
[2016-10-10] MEDS: METOPROLOL SUCCINATE 25 MG TAB.SR.24H PO SCH ×2 (09:20→22:19)
[2016-10-10] MEDS: LISINOPRIL 5 MG TABLET PO SCH (09:20)
--- NOTE | 2016-10-10 09:34 | PDOC PROGRESS REPORT ---
Subjective Progress Note for:: 10/10/16 Subjective:: Patient reported satisfactory sleep pattern on BiPAP support overnight and slept continuously for about 5 hours. He denied any chest pain. No nausea, vomiting or abdominal pain. No fever or chills. Patient is currently awaiting bed allocation regarding transfer to SNF. Physical Exam Vital Signs: Temp Pulse Resp BP Pulse Ox 97.3 F 62 16 108/66 100 10/10/16 08:00 10/10/16 08:00 10/10/16 08:00 10/10/16 08:00 10/10/16 08:00 Intake & Output 10/09/16 10/10/16 10/11/16 06:59 06:59 06:59 Intake Total 1117 1660 Output Total 1225 1400 Balance -108 260 Physical Exam: General appearance: PRESENT: no acute distress, obese, well-developed, well- nourished Head exam: PRESENT: atraumatic, normocephalic Eye exam: PRESENT: conjunctiva pink, EOMI, PERRLA. ABSENT: scleral icterus Mouth exam: PRESENT: moist Respiratory exam: PRESENT: clear to auscultation rebecca Cardiovascular exam: PRESENT: RRR. ABSENT: diastolic murmur, rubs, systolic murmur GI/Abdominal exam: PRESENT: normal bowel sounds, soft. ABSENT: distended, guarding, mass, organomegaly, rebound, tenderness Extremities exam: PRESENT: full ROM Musculoskeletal exam: PRESENT: deformity - related to joints involvement with arthritis Neurological exam: PRESENT: alert, awake, oriented to person, oriented to place , oriented to time, oriented to situation, CN II-XII grossly intact. ABSENT: motor sensory deficit Psychiatric exam: PRESENT: appropriate affect, normal mood. ABSENT: homicidal ideation, suicidal ideation Skin exam: PRESENT: dry, intact, warm. ABSENT: cyanosis, rash Results Laboratory Results: 10/10/16 07:28 10/10/16 07:28 10/10/16 10/10/16 07:28 07:28 WBC 10.6 H RBC 4.19 L Hgb 11.2 L Hct 33.2 L MCV 79 L MCH 26.9 L MCHC 33.8 RDW 17.6 H Plt Count 191 Sodium 135.9 L Potassium 4.6 Chloride 102 Carbon Dioxide 24 Anion Gap 10 BUN 54 H Creatinine 1.24 Est GFR ( Amer) > 60 Est GFR (Non-Af Amer) 59 L Glucose 104 Calcium 9.6 Impressions: Chest X-Ray 10/02/16 16:18 IMPRESSION: Interval improvement. Renal Ultrasound 10/05/16 00:00 IMPRESSION: NORMAL RENAL AND BLADDER ULTRASOUND. Assessment & Plan - Diagnosis (1) Acute kidney injury superimposed on chronic kidney disease Is this a current diagnosis for this admission?: YesPlan: See covering attending physician orders (2) Acute on chronic systolic heart failure Is this a current diagnosis for this admission?: YesPlan: See covering attending physician orders (3) Chronic kidney disease, stage 3 Is this a current diagnosis for this admission?: YesPlan: See covering attending physician orders (4) Pseudomonas urinary tract infection Is this a current diagnosis for this admission?: YesPlan: See covering attending physician orders (5) Sleep disturbance, unspecified Is this a current diagnosis for this admission?: YesPlan: See covering attending physician orders. Emphasized compliance with use of BiPAP. - Time Time Spent with patient: 25-34 minutes Medications reviewed and adjusted accordingly: Yes Anticipated discharge: SNF Within: Other - Inpatient Certification Based on my medical assessment, after consideration of the patient's comorbidities, presenting symptoms, or acuity I expect that the services needed warrant INPATIENT care.: Yes I certify that my determination is in accordance with my understanding of Medicare's requirements for reasonable and necessary INPATIENT services [42 CFR 412.3e].: Yes Medical Necessity: Need Close Monitoring Due to Risk of Patient Decompensation, Need For Continuous Telemetry Monitoring, Risk of Complication if Not Cared For in Hospital Post Hospital Care: D/C or Transfer Summary - Plan Summary Plan Summary: See covering attending physician orders.
[2016-10-10] MEDS: INSULIN LISPRO 100 UNIT/ML 3 ML VIAL SUBCUT PRN ×3 (11:28→23:08)
[2016-10-10] MEDS: HYDROMORPHONE HCL 2 MG TABLET PO PRN (13:04)
[2016-10-10] MEDS: WARFARIN SODIUM 2.5 MG TABLET PO SCH (22:19)
[2016-10-10] MEDS: ATORVASTATIN CALCIUM 80 MG TABLET PO SCH (22:19)
[2016-10-10] MEDS ORDERED: INSULIN DETEMIR 100 UNIT/ML 3 ML PEN SUBCUT ONE (22:19)
[2016-10-10] MEDS: INSULIN DETEMIR 100 UNIT/ML 3 ML PEN SUBCUT SCH (23:08)
[2016-10-11] MEDS: ISOSORBIDE DINITRATE 10 MG TABLET PO SCH ×3 (06:24→22:46)
[2016-10-11] MEDS: LANSOPRAZOLE 30 MG TAB.RAP.DR PO SCH (06:24)
[2016-10-11] MEDS: OXYCODONE HCL SR 40 MG TABLET PO SCH ×3 (06:24→22:45)
[2016-10-11] MEDS: GABAPENTIN 300 MG CAPSULE PO SCH ×3 (06:24→22:49)
[2016-10-11] MEDS: LEVOTHYROXINE SODIUM 0.1 MG TABLET PO SCH (08:16)
[2016-10-11] MEDS: INSULIN LISPRO 100 UNIT/ML 3 ML VIAL SUBCUT SCH ×3 (08:17→16:42)
[2016-10-11] MEDS: CIPROFLOXACIN HCL 500 MG TABLET PO SCH ×2 (08:17→20:32)
[2016-10-11] MEDS: PREDNISONE 10 MG TABLET PO SCH (09:29)
[2016-10-11] MEDS: BUMETANIDE 1 MG TABLET PO SCH (09:29)
[2016-10-11] MEDS: ASPIRIN 81 MG TABLET, CHEWABLE PO SCH (09:29)
[2016-10-11] MEDS: SPIRONOLACTONE 25 MG TABLET PO SCH (09:29)
[2016-10-11] MEDS: METOPROLOL SUCCINATE 25 MG TAB.SR.24H PO SCH ×2 (09:29→22:45)
[2016-10-11] MEDS: LISINOPRIL 5 MG TABLET PO SCH (09:30)
[2016-10-11] MEDS: RANOLAZINE 500 MG TAB.SR.12H PO SCH ×2 (09:31→22:44)
[2016-10-11] MEDS: BACLOFEN 10 MG TABLET PO PRN (15:41)
--- NOTE | 2016-10-11 19:43 | PDOC PROGRESS REPORT ---
Subjective Progress Note for:: 10/18/16 Subjective:: He was seen by the bedside awaiting fpc placement Physical Exam Vital Signs: Temp Pulse Resp BP Pulse Ox 97.5 F 59 L 18 107/50 L 100 10/11/16 15:23 10/11/16 15:23 10/11/16 15:23 10/11/16 15:23 10/11/16 15:23 Intake & Output 10/10/16 10/11/16 10/12/16 06:59 06:59 06:59 Intake Total 1660 1220 684 Output Total 1400 1800 800 Balance 260 -580 -116 General appearance: PRESENT: no acute distress Eye exam: PRESENT: PERRLA Cardiovascular exam: PRESENT: +S1, +S2 GI/Abdominal exam: PRESENT: soft Neurological exam: PRESENT: alert Results Laboratory Results: 10/10/16 07:28 10/10/16 07:28 Impressions: Chest X-Ray 10/02/16 16:18 IMPRESSION: Interval improvement. Renal Ultrasound 10/05/16 00:00 IMPRESSION: NORMAL RENAL AND BLADDER ULTRASOUND. Assessment & Plan - Diagnosis (1) Acute kidney injury superimposed on chronic kidney disease Is this a current diagnosis for this admission?: Yes (2) Chronic kidney disease, stage 3 Is this a current diagnosis for this admission?: Yes (3) Acute on chronic systolic heart failure Is this a current diagnosis for this admission?: Yes (4) Pseudomonas urinary tract infection Is this a current diagnosis for this admission?: Yes
[2016-10-11] MEDS: INSULIN DETEMIR 100 UNIT/ML 3 ML PEN SUBCUT SCH (22:44)
[2016-10-11] MEDS: WARFARIN SODIUM 2.5 MG TABLET PO SCH (22:44)
[2016-10-11] MEDS: ATORVASTATIN CALCIUM 80 MG TABLET PO SCH (22:44)
[2016-10-12 04:48] LABS: APPEARANCE,URINE CLEAR; BILIRUBIN,URINE NEGATIVE (NEGATIVE); GLUCOSE, URINE NEGATIVE (NEGATIVE); KETONES,URINE NEGATIVE (NEGATIVE); LEUKOCYTE ESTERASE,URINE NEGATIVE (NEGATIVE); NITRITE,URINE NEGATIVE (NEGATIVE); PROTEIN,URINE NEGATIVE (NEGATIVE); URINE SPECIFIC GRAVITY 1.009; UROBILINOGEN,URINE NEGATIVE mg/dL (<2.0)
[2016-10-12] MEDS: ISOSORBIDE DINITRATE 10 MG TABLET PO SCH ×3 (06:53→21:19)
[2016-10-12] MEDS: GABAPENTIN 300 MG CAPSULE PO SCH ×3 (06:53→21:19)
[2016-10-12] MEDS: LANSOPRAZOLE 30 MG TAB.RAP.DR PO SCH (06:53)
[2016-10-12] MEDS: OXYCODONE HCL SR 40 MG TABLET PO SCH ×3 (06:53→21:19)
[2016-10-12] MEDS: CIPROFLOXACIN HCL 500 MG TABLET PO SCH ×2 (07:30→19:53)
[2016-10-12] MEDS: INSULIN LISPRO 100 UNIT/ML 3 ML VIAL SUBCUT SCH ×3 (07:30→16:11)
[2016-10-12] MEDS: LEVOTHYROXINE SODIUM 0.1 MG TABLET PO SCH (07:30)
[2016-10-12 10:33] LABS: PARTIAL THROMBOPLASTIN TIME 30.8 SEC (23.5-35.8); PROTHROMBIN TIME 20.5 SEC (11.4-15.4)
[2016-10-12] MEDS: SPIRONOLACTONE 25 MG TABLET PO SCH (11:22)
[2016-10-12] MEDS: PREDNISONE 10 MG TABLET PO SCH (11:22)
[2016-10-12] MEDS: METOPROLOL SUCCINATE 25 MG TAB.SR.24H PO SCH ×2 (11:22→21:19)
[2016-10-12] MEDS: ASPIRIN 81 MG TABLET, CHEWABLE PO SCH (11:23)
[2016-10-12] MEDS: LISINOPRIL 5 MG TABLET PO SCH (11:23)
[2016-10-12] MEDS: BUMETANIDE 1 MG TABLET PO SCH (11:23)
[2016-10-12] MEDS: RANOLAZINE 500 MG TAB.SR.12H PO SCH ×2 (11:27→21:19)
--- NOTE | 2016-10-12 20:31 | PDOC PROGRESS REPORT ---
Subjective Progress Note for:: 10/12/16 Subjective:: He was seen by the bedside awaiting long-term placement Physical Exam Vital Signs: Temp Pulse Resp BP Pulse Ox 98.1 F 66 18 120/68 97 10/12/16 11:26 10/12/16 14:00 10/12/16 08:10 10/12/16 11:26 10/12/16 15:35 Intake & Output 10/11/16 10/12/16 10/13/16 06:59 06:59 06:59 Intake Total 1220 1054 Output Total 1800 1700 Balance -580 -646 General appearance: PRESENT: no acute distress Eye exam: ABSENT: scleral icterus Ear exam: PRESENT: normal external ear exam Mouth exam: PRESENT: moist, tongue midline Neck exam: PRESENT: full ROM Cardiovascular exam: PRESENT: RRR, +S1, +S2 Vascular exam: PRESENT: normal capillary refill Rectal exam: PRESENT: deferred Neurological exam: PRESENT: alert, awake, oriented to person, oriented to place , oriented to time, oriented to situation, CN II-XII grossly intact. ABSENT: motor sensory deficit Psychiatric exam: PRESENT: appropriate affect, normal mood Skin exam: PRESENT: dry, intact, warm Results Laboratory Results: 10/10/16 07:28 10/10/16 07:28 10/12/16 04:00 Urine Color YELLOW Urine Appearance CLEAR Urine pH 6.0 Ur Specific [place] 1.009 Urine Protein NEGATIVE Urine Glucose (UA) NEGATIVE Urine Ketones NEGATIVE Urine Blood NEGATIVE Urine Nitrite NEGATIVE Ur Leukocyte Esterase NEGATIVE Urine WBC (Auto) 0 Urine RBC (Auto) 1 Impressions: Chest X-Ray 10/02/16 16:18 IMPRESSION: Interval improvement. Renal Ultrasound 10/05/16 00:00 IMPRESSION: NORMAL RENAL AND BLADDER ULTRASOUND. Assessment & Plan - Diagnosis (1) Acute kidney injury superimposed on chronic kidney disease Is this a current diagnosis for this admission?: Yes (2) Chronic kidney disease, stage 3 Is this a current diagnosis for this admission?: Yes (3) Acute on chronic systolic heart failure Is this a current diagnosis for this admission?: Yes (4) Pseudomonas urinary tract infection Is this a current diagnosis for this admission?: Yes
[2016-10-12] MEDS: INSULIN DETEMIR 100 UNIT/ML 3 ML PEN SUBCUT SCH ×2 (21:19→22:31)
[2016-10-12] MEDS: ATORVASTATIN CALCIUM 80 MG TABLET PO SCH (21:19)
[2016-10-12] MEDS: WARFARIN SODIUM 2.5 MG TABLET PO SCH (21:19)
[2016-10-12] MEDS ORDERED: HYDROMORPHONE HCL INJ/PF 2 MG/ML AMPULE IV ONE (21:30)
[2016-10-12] MEDS: INSULIN LISPRO 100 UNIT/ML 3 ML VIAL SUBCUT PRN (22:32)
[2016-10-13] MEDS: LANSOPRAZOLE 30 MG TAB.RAP.DR PO SCH (05:13)
[2016-10-13] MEDS: GABAPENTIN 300 MG CAPSULE PO SCH ×3 (05:13→21:48)
[2016-10-13] MEDS: ISOSORBIDE DINITRATE 10 MG TABLET PO SCH ×3 (05:13→21:48)
[2016-10-13] MEDS: OXYCODONE HCL SR 40 MG TABLET PO SCH ×3 (05:13→21:48)
[2016-10-13] MEDS: PREDNISONE 10 MG TABLET PO SCH (08:52)
[2016-10-13] MEDS: BUMETANIDE 1 MG TABLET PO SCH (08:52)
[2016-10-13] MEDS: SPIRONOLACTONE 25 MG TABLET PO SCH (08:52)
[2016-10-13] MEDS: LISINOPRIL 5 MG TABLET PO SCH (08:52)
[2016-10-13] MEDS: LEVOTHYROXINE SODIUM 0.1 MG TABLET PO SCH (08:52)
[2016-10-13] MEDS: ASPIRIN 81 MG TABLET, CHEWABLE PO SCH (08:52)
[2016-10-13] MEDS: CIPROFLOXACIN HCL 500 MG TABLET PO SCH ×2 (08:52→19:47)
[2016-10-13] MEDS: RANOLAZINE 500 MG TAB.SR.12H PO SCH ×2 (08:53→21:48)
[2016-10-13] MEDS: METOPROLOL SUCCINATE 25 MG TAB.SR.24H PO SCH ×2 (08:53→21:49)
[2016-10-13] MEDS: INSULIN LISPRO 100 UNIT/ML 3 ML VIAL SUBCUT SCH ×3 (08:54→18:01)
[2016-10-13 17:06] LABS: APPEARANCE,URINE CLEAR; BILIRUBIN,URINE NEGATIVE (NEGATIVE); GLUCOSE, URINE NEGATIVE (NEGATIVE); KETONES,URINE NEGATIVE (NEGATIVE); LEUKOCYTE ESTERASE,URINE NEGATIVE (NEGATIVE); NITRITE,URINE NEGATIVE (NEGATIVE); PROTEIN,URINE NEGATIVE (NEGATIVE); URINE SPECIFIC GRAVITY 1.008; UROBILINOGEN,URINE NEGATIVE mg/dL (<2.0)
[2016-10-13] MEDS ORDERED: HYDROMORPHONE HCL INJ/PF 2 MG/ML AMPULE IV PRN (18:00)
--- NOTE | 2016-10-13 18:00 | PDOC PROGRESS REPORT ---
Subjective Progress Note for:: 10/13/16 Subjective:: Patient was seen by the bedside awaiting bed placement Physical Exam Vital Signs: Temp Pulse Resp BP Pulse Ox 97.9 F 60 18 125/60 97 10/13/16 15:56 10/13/16 15:56 10/13/16 15:56 10/13/16 15:56 10/13/16 15:56 Intake & Output 10/12/16 10/13/16 10/14/16 06:59 06:59 06:59 Intake Total 1054 360 900 Output Total 1700 850 650 Balance -646 -490 250 General appearance: PRESENT: no acute distress Eye exam: PRESENT: PERRLA Cardiovascular exam: PRESENT: +S1, +S2 GI/Abdominal exam: PRESENT: soft Results Laboratory Results: 10/10/16 07:28 10/10/16 07:28 10/13/16 16:37 Urine Color STRAW Urine Appearance CLEAR Urine pH 6.0 Ur Specific [place] 1.008 Urine Protein NEGATIVE Urine Glucose (UA) NEGATIVE Urine Ketones NEGATIVE Urine Blood NEGATIVE Urine Nitrite NEGATIVE Ur Leukocyte Esterase NEGATIVE Urine WBC (Auto) 0 Urine RBC (Auto) 1 Impressions: Chest X-Ray 10/02/16 16:18 IMPRESSION: Interval improvement. Renal Ultrasound 10/05/16 00:00 IMPRESSION: NORMAL RENAL AND BLADDER ULTRASOUND. Assessment & Plan - Diagnosis (1) Acute kidney injury superimposed on chronic kidney disease Is this a current diagnosis for this admission?: Yes (2) Chronic kidney disease, stage 3 Is this a current diagnosis for this admission?: Yes (3) Acute on chronic systolic heart failure Is this a current diagnosis for this admission?: Yes (4) Pseudomonas urinary tract infection Is this a current diagnosis for this admission?: Yes
[2016-10-13] MEDS: HYDROMORPHONE HCL 2 MG TABLET PO PRN (20:21)
[2016-10-13] MEDS: ATORVASTATIN CALCIUM 80 MG TABLET PO SCH (21:47)
[2016-10-13] MEDS: INSULIN DETEMIR 100 UNIT/ML 3 ML PEN SUBCUT SCH (21:48)
[2016-10-13] MEDS: WARFARIN SODIUM 2.5 MG TABLET PO SCH (21:48)
[2016-10-14] MEDS: ISOSORBIDE DINITRATE 10 MG TABLET PO SCH ×3 (05:26→21:06)
[2016-10-14] MEDS: LANSOPRAZOLE 30 MG TAB.RAP.DR PO SCH (05:26)
[2016-10-14] MEDS: MAG HYDROX/AL HYDROX/SIMETH SUSP 30 ML UDCUP PO PRN (05:26)
[2016-10-14] MEDS: OXYCODONE HCL SR 40 MG TABLET PO SCH ×3 (05:26→21:06)
[2016-10-14] MEDS: GABAPENTIN 300 MG CAPSULE PO SCH ×3 (05:26→21:06)
[2016-10-14] MEDS: LISINOPRIL 5 MG TABLET PO SCH (09:58)
[2016-10-14] MEDS: PREDNISONE 10 MG TABLET PO SCH (09:59)
[2016-10-14] MEDS: BUMETANIDE 1 MG TABLET PO SCH (10:00)
[2016-10-14] MEDS: ASPIRIN 81 MG TABLET, CHEWABLE PO SCH (10:00)
[2016-10-14] MEDS: CIPROFLOXACIN HCL 500 MG TABLET PO SCH ×2 (10:00→19:42)
[2016-10-14] MEDS: SPIRONOLACTONE 25 MG TABLET PO SCH (10:01)
[2016-10-14] MEDS: LEVOTHYROXINE SODIUM 0.1 MG TABLET PO SCH (10:01)
[2016-10-14] MEDS: RANOLAZINE 500 MG TAB.SR.12H PO SCH ×2 (10:02→21:06)
[2016-10-14] MEDS: INSULIN LISPRO 100 UNIT/ML 3 ML VIAL SUBCUT SCH ×3 (10:02→16:30)
[2016-10-14] MEDS: INSULIN LISPRO 100 UNIT/ML 3 ML VIAL SUBCUT PRN (12:50)
[2016-10-14] MEDS: HYDROMORPHONE HCL 2 MG TABLET PO PRN (12:50)
[2016-10-14] MEDS: METOPROLOL SUCCINATE 25 MG TAB.SR.24H PO SCH ×2 (12:51→21:06)
--- NOTE | 2016-10-14 19:53 | PDOC PROGRESS REPORT ---
Subjective Progress Note for:: 10/14/16 Subjective:: She has not seen by the bedside there is no new complaint Physical Exam Vital Signs: Temp Pulse Resp BP Pulse Ox 97.1 F 63 18 112/60 100 10/14/16 16:08 10/14/16 16:08 10/14/16 16:08 10/14/16 16:08 10/14/16 16:08 Intake & Output 10/13/16 10/14/16 10/15/16 06:59 06:59 06:59 Intake Total 360 1300 780 Output Total 850 1170 1500 Balance -490 130 -720 Results Laboratory Results: 10/10/16 07:28 10/10/16 07:28 Impressions: Chest X-Ray 10/02/16 16:18 IMPRESSION: Interval improvement. Renal Ultrasound 10/05/16 00:00 IMPRESSION: NORMAL RENAL AND BLADDER ULTRASOUND. Assessment & Plan - Diagnosis (1) Acute kidney injury superimposed on chronic kidney disease Is this a current diagnosis for this admission?: Yes (2) Chronic kidney disease, stage 3 Is this a current diagnosis for this admission?: Yes (3) Acute on chronic systolic heart failure Is this a current diagnosis for this admission?: Yes (4) Pseudomonas urinary tract infection Is this a current diagnosis for this admission?: Yes
[2016-10-14] MEDS: WARFARIN SODIUM 2.5 MG TABLET PO SCH (21:06)
[2016-10-14] MEDS: ATORVASTATIN CALCIUM 80 MG TABLET PO SCH (21:06)
[2016-10-15] MEDS: GABAPENTIN 300 MG CAPSULE PO SCH ×3 (05:47→21:26)
[2016-10-15] MEDS: ISOSORBIDE DINITRATE 10 MG TABLET PO SCH ×3 (05:47→21:26)
[2016-10-15] MEDS: OXYCODONE HCL SR 40 MG TABLET PO SCH ×3 (05:47→21:27)
[2016-10-15] MEDS: LANSOPRAZOLE 30 MG TAB.RAP.DR PO SCH (05:47)
[2016-10-15 06:00] LABS: APPEARANCE,URINE CLEAR; BILIRUBIN,URINE NEGATIVE (NEGATIVE); GLUCOSE, URINE NEGATIVE (NEGATIVE); KETONES,URINE NEGATIVE (NEGATIVE); LEUKOCYTE ESTERASE,URINE NEGATIVE (NEGATIVE); NITRITE,URINE NEGATIVE (NEGATIVE); PROTEIN,URINE NEGATIVE (NEGATIVE); UROBILINOGEN,URINE NEGATIVE mg/dL (<2.0)
[2016-10-15] MEDS: INSULIN LISPRO 100 UNIT/ML 3 ML VIAL SUBCUT PRN (06:43)
[2016-10-15] MEDS: LEVOTHYROXINE SODIUM 0.1 MG TABLET PO SCH (07:39)
[2016-10-15] MEDS: CIPROFLOXACIN HCL 500 MG TABLET PO SCH ×2 (07:39→19:28)
[2016-10-15] MEDS: INSULIN LISPRO 100 UNIT/ML 3 ML VIAL SUBCUT SCH ×3 (07:39→16:45)
[2016-10-15] MEDS: HYDROMORPHONE HCL 2 MG TABLET PO PRN ×2 (09:16→21:27)
[2016-10-15] MEDS: PREDNISONE 10 MG TABLET PO SCH (10:50)
[2016-10-15] MEDS: SPIRONOLACTONE 25 MG TABLET PO SCH (10:50)
[2016-10-15] MEDS: ASPIRIN 81 MG TABLET, CHEWABLE PO SCH (10:50)
[2016-10-15] MEDS: BUMETANIDE 1 MG TABLET PO SCH (10:51)
[2016-10-15] MEDS: RANOLAZINE 500 MG TAB.SR.12H PO SCH ×2 (10:53→21:27)
[2016-10-15] MEDS: LISINOPRIL 5 MG TABLET PO SCH (10:53)
[2016-10-15] MEDS: METOPROLOL SUCCINATE 25 MG TAB.SR.24H PO SCH (10:59)
--- NOTE | 2016-10-15 18:48 | PDOC PROGRESS REPORT ---
Subjective Progress Note for:: 10/15/16 Subjective:: There is no new complaints patient continues to wait for a bed in long-term care facility Physical Exam Vital Signs: Temp Pulse Resp BP Pulse Ox 98.1 F 67 18 125/57 L 100 10/15/16 15:49 10/15/16 15:49 10/15/16 15:49 10/15/16 15:49 10/15/16 15:49 Intake & Output 10/14/16 10/15/16 10/16/16 06:59 06:59 06:59 Intake Total 1300 1340 730 Output Total 1170 3900 1000 Balance 130 -2560 -270 General appearance: PRESENT: no acute distress, well-developed, well-nourished Head exam: PRESENT: atraumatic, normocephalic Eye exam: PRESENT: conjunctiva pink, EOMI, PERRLA. ABSENT: scleral icterus Ear exam: PRESENT: normal external ear exam Mouth exam: PRESENT: moist, tongue midline Neck exam: PRESENT: full ROM. ABSENT: carotid bruit, JVD, lymphadenopathy, thyromegaly Cardiovascular exam: PRESENT: RRR. ABSENT: diastolic murmur, rubs, systolic murmur Pulses: PRESENT: normal dorsalis pedis pul, +2 pedal pulses bilateral Vascular exam: PRESENT: normal capillary refill GI/Abdominal exam: PRESENT: normal bowel sounds, soft. ABSENT: distended, guarding, mass, organolmegaly, rebound, tenderness Rectal exam: PRESENT: deferred Neurological exam: PRESENT: alert, awake, oriented to person, oriented to place , oriented to time, oriented to situation, CN II-XII grossly intact. ABSENT: motor sensory deficit Psychiatric exam: PRESENT: appropriate affect, normal mood. ABSENT: homicidal ideation, suicidal ideation Skin exam: PRESENT: dry, intact, warm. ABSENT: cyanosis, rash Results Laboratory Results: 10/10/16 07:28 10/10/16 07:28 10/15/16 05:00 Urine Color STRAW Urine Appearance CLEAR Urine pH 7.0 Ur Specific [place] 1.010 Urine Protein NEGATIVE Urine Glucose (UA) NEGATIVE Urine Ketones NEGATIVE Urine Blood NEGATIVE Urine Nitrite NEGATIVE Ur Leukocyte Esterase NEGATIVE Urine RBC (Auto) 0 Impressions: Chest X-Ray 10/02/16 16:18 IMPRESSION: Interval improvement. Renal Ultrasound 10/05/16 00:00 IMPRESSION: NORMAL RENAL AND BLADDER ULTRASOUND. Assessment & Plan - Diagnosis (1) Acute kidney injury superimposed on chronic kidney disease Is this a current diagnosis for this admission?: Yes (2) Chronic kidney disease, stage 3 Is this a current diagnosis for this admission?: Yes (3) Acute on chronic systolic heart failure Is this a current diagnosis for this admission?: Yes (4) Pseudomonas urinary tract infection Is this a current diagnosis for this admission?: Yes
[2016-10-15] MEDS: WARFARIN SODIUM 2.5 MG TABLET PO SCH (21:26)
[2016-10-15] MEDS: ATORVASTATIN CALCIUM 80 MG TABLET PO SCH (21:26)
[2016-10-15] MEDS: INSULIN DETEMIR 100 UNIT/ML 3 ML PEN SUBCUT SCH (21:31)
[2016-10-16] MEDS: METOPROLOL SUCCINATE 25 MG TAB.SR.24H PO SCH ×3 (00:23→21:34)
[2016-10-16] MEDS: OXYCODONE HCL SR 40 MG TABLET PO SCH ×3 (05:51→21:33)
[2016-10-16] MEDS: LANSOPRAZOLE 30 MG TAB.RAP.DR PO SCH (05:51)
[2016-10-16] MEDS: ISOSORBIDE DINITRATE 10 MG TABLET PO SCH ×3 (05:51→21:33)
[2016-10-16] MEDS: GABAPENTIN 300 MG CAPSULE PO SCH ×3 (05:52→21:33)
[2016-10-16] MEDS: CIPROFLOXACIN HCL 500 MG TABLET PO SCH ×2 (07:32→19:56)
[2016-10-16] MEDS: INSULIN LISPRO 100 UNIT/ML 3 ML VIAL SUBCUT SCH ×3 (07:32→16:11)
[2016-10-16] MEDS: LEVOTHYROXINE SODIUM 0.1 MG TABLET PO SCH (07:32)
[2016-10-16] MEDS: LISINOPRIL 5 MG TABLET PO SCH (09:53)
[2016-10-16] MEDS: RANOLAZINE 500 MG TAB.SR.12H PO SCH ×2 (09:53→21:33)
[2016-10-16] MEDS: BUMETANIDE 1 MG TABLET PO SCH (09:54)
[2016-10-16] MEDS: SPIRONOLACTONE 25 MG TABLET PO SCH (09:54)
[2016-10-16] MEDS: HYDROMORPHONE HCL 2 MG TABLET PO PRN ×2 (09:54→21:33)
[2016-10-16] MEDS: PREDNISONE 10 MG TABLET PO SCH (09:54)
[2016-10-16] MEDS: ASPIRIN 81 MG TABLET, CHEWABLE PO SCH (09:54)
--- NOTE | 2016-10-16 16:44 | PDOC PROGRESS REPORT ---
Subjective Progress Note for:: 10/16/16 Physical Exam Vital Signs: Temp Pulse Resp BP Pulse Ox 97.6 F 66 20 123/51 L 100 10/16/16 12:00 10/16/16 14:00 10/16/16 12:00 10/16/16 12:00 10/16/16 12:00 Intake & Output 10/15/16 10/16/16 10/17/16 06:59 06:59 06:59 Intake Total 1340 1760 Output Total 3900 3350 Balance -2560 -1590 Results Laboratory Results: 10/10/16 07:28 10/10/16 07:28 Impressions: Chest X-Ray 10/02/16 16:18 IMPRESSION: Interval improvement. Renal Ultrasound 10/05/16 00:00 IMPRESSION: NORMAL RENAL AND BLADDER ULTRASOUND. Assessment & Plan - Diagnosis (1) Acute kidney injury superimposed on chronic kidney disease Is this a current diagnosis for this admission?: Yes (2) Chronic kidney disease, stage 3 Is this a current diagnosis for this admission?: Yes (3) Acute on chronic systolic heart failure Is this a current diagnosis for this admission?: Yes (4) Pseudomonas urinary tract infection Is this a current diagnosis for this admission?: Yes
[2016-10-16] MEDS: INSULIN DETEMIR 100 UNIT/ML 3 ML PEN SUBCUT SCH (21:33)
[2016-10-16] MEDS: WARFARIN SODIUM 2.5 MG TABLET PO SCH (21:33)
[2016-10-16] MEDS: ATORVASTATIN CALCIUM 80 MG TABLET PO SCH (21:33)
[2016-10-17 05:03] LABS: HEMATOCRIT 33.7 % (37.9-51.0); HEMOGLOBIN 11.3 g/dL (13.5-17.0); HGB HCT DIFFERENCE 0.2; MEAN CORPUSCULAR HEMOGLOBIN 26.7 pg (27.0-33.4); MEAN CORPUSCULAR HGB CONC 33.4 g/dL (32.0-36.0); MEAN CORPUSCULAR VOLUME 80 fl (80-97); RED BLOOD COUNT 4.22 10^6/uL (4.35-5.55); RED CELL DISTRIBUTION WIDTH 18.4 % (11.5-14.0); WHITE BLOOD COUNT 9.5 10^3/uL (4.0-10.5)
[2016-10-17] MEDS: GABAPENTIN 300 MG CAPSULE PO SCH ×3 (05:40→22:53)
[2016-10-17] MEDS: LANSOPRAZOLE 30 MG TAB.RAP.DR PO SCH (05:40)
[2016-10-17] MEDS: ISOSORBIDE DINITRATE 10 MG TABLET PO SCH ×3 (05:40→22:53)
[2016-10-17] MEDS: OXYCODONE HCL SR 40 MG TABLET PO SCH ×2 (05:40→13:34)
[2016-10-17] MEDS: LEVOTHYROXINE SODIUM 0.1 MG TABLET PO SCH (07:33)
[2016-10-17] MEDS: CIPROFLOXACIN HCL 500 MG TABLET PO SCH ×2 (07:33→20:16)
[2016-10-17] MEDS: INSULIN LISPRO 100 UNIT/ML 3 ML VIAL SUBCUT SCH ×3 (07:33→16:36)
[2016-10-17] MEDS: BUMETANIDE 1 MG TABLET PO SCH (09:06)
[2016-10-17] MEDS: RANOLAZINE 500 MG TAB.SR.12H PO SCH ×2 (09:07→22:53)
[2016-10-17] MEDS: ASPIRIN 81 MG TABLET, CHEWABLE PO SCH (09:07)
[2016-10-17] MEDS: SPIRONOLACTONE 25 MG TABLET PO SCH (09:07)
[2016-10-17] MEDS: LISINOPRIL 5 MG TABLET PO SCH (09:07)
[2016-10-17] MEDS: METOPROLOL SUCCINATE 25 MG TAB.SR.24H PO SCH ×2 (09:07→22:53)
[2016-10-17] MEDS: PREDNISONE 10 MG TABLET PO SCH (09:07)
--- NOTE | 2016-10-17 16:21 | PDOC PROGRESS REPORT ---
Subjective Progress Note for:: 10/17/16 Subjective:: There is no new complaints patient continues to wait for a bed in long-term care facility Physical Exam Vital Signs: Temp Pulse Resp BP Pulse Ox 98 F 65 16 111/53 L 99 10/17/16 15:43 10/17/16 15:43 10/17/16 15:43 10/17/16 15:43 10/17/16 15:43 Intake & Output 10/16/16 10/17/16 10/18/16 06:59 06:59 06:59 Intake Total 1760 1360 Output Total 3350 1750 Balance -1590 -390 General appearance: PRESENT: no acute distress Eye exam: PRESENT: PERRLA Results Laboratory Results: 10/17/16 04:07 10/10/16 07:28 10/17/16 04:07 WBC 9.5 RBC 4.22 L Hgb 11.3 L Hct 33.7 L MCV 80 MCH 26.7 L MCHC 33.4 RDW 18.4 H Plt Count 195 Impressions: Chest X-Ray 10/02/16 16:18 IMPRESSION: Interval improvement. Renal Ultrasound 10/05/16 00:00 IMPRESSION: NORMAL RENAL AND BLADDER ULTRASOUND. Assessment & Plan - Diagnosis (1) Acute kidney injury superimposed on chronic kidney disease Is this a current diagnosis for this admission?: Yes (2) Chronic kidney disease, stage 3 Is this a current diagnosis for this admission?: Yes (3) Acute on chronic systolic heart failure Is this a current diagnosis for this admission?: Yes (4) Pseudomonas urinary tract infection Is this a current diagnosis for this admission?: Yes
[2016-10-17] MEDS: MAG HYDROX/AL HYDROX/SIMETH SUSP 30 ML UDCUP PO PRN (20:29)
[2016-10-17] MEDS: HYDROMORPHONE HCL 2 MG TABLET PO PRN (20:29)
[2016-10-17] MEDS: WARFARIN SODIUM 2.5 MG TABLET PO SCH (22:52)
[2016-10-17] MEDS: ATORVASTATIN CALCIUM 80 MG TABLET PO SCH (22:53)
[2016-10-17] MEDS: INSULIN DETEMIR 100 UNIT/ML 3 ML PEN SUBCUT SCH (23:02)
[2016-10-17] MEDS: INSULIN LISPRO 100 UNIT/ML 3 ML VIAL SUBCUT PRN (23:02)
[2016-10-17] MEDS ORDERED: INSULIN DETEMIR 100 UNIT/ML 3 ML PEN SUBCUT ONE (23:06)
[2016-10-18] MEDS: OXYCODONE HCL SR 40 MG TABLET PO SCH ×3 (05:43→20:51)
[2016-10-18] MEDS: LANSOPRAZOLE 30 MG TAB.RAP.DR PO SCH (05:44)
[2016-10-18] MEDS: GABAPENTIN 300 MG CAPSULE PO SCH ×3 (05:44→20:52)
[2016-10-18] MEDS: ISOSORBIDE DINITRATE 10 MG TABLET PO SCH ×3 (05:44→20:57)
[2016-10-18] MEDS ORDERED: NITROGLYCERIN 0.4 MG/TAB 25 TAB/BOTTLE SL PRN (05:59)
[2016-10-18] MEDS: LISINOPRIL 5 MG TABLET PO SCH (10:02)
[2016-10-18] MEDS: ASPIRIN 81 MG TABLET, CHEWABLE PO SCH (10:02)
[2016-10-18] MEDS: METOPROLOL SUCCINATE 25 MG TAB.SR.24H PO SCH ×2 (10:02→20:57)
[2016-10-18] MEDS: LEVOTHYROXINE SODIUM 0.1 MG TABLET PO SCH (10:04)
[2016-10-18] MEDS: SPIRONOLACTONE 25 MG TABLET PO SCH (10:06)
[2016-10-18] MEDS: CIPROFLOXACIN HCL 500 MG TABLET PO SCH ×2 (10:06→20:49)
[2016-10-18] MEDS: HYDROMORPHONE HCL 2 MG TABLET PO PRN ×2 (10:07→20:50)
[2016-10-18] MEDS: RANOLAZINE 500 MG TAB.SR.12H PO SCH ×2 (10:08→20:57)
[2016-10-18] MEDS: BUMETANIDE 1 MG TABLET PO SCH (10:10)
[2016-10-18] MEDS: PREDNISONE 10 MG TABLET PO SCH (10:11)
[2016-10-18] MEDS: INSULIN LISPRO 100 UNIT/ML 3 ML VIAL SUBCUT SCH ×3 (10:12→16:58)
[2016-10-18] MEDS: MAG HYDROX/AL HYDROX/SIMETH SUSP 30 ML UDCUP PO PRN (18:38)
--- NOTE | 2016-10-18 19:42 | PDOC TRANSFER SUMMARY ---
General - Admit/Disc Date/PCP Admission Date/Primary Care Provider: 10/06/16 15:08 RAVI SANCHEZ MD Discharge Date: 10/18/16 - Discharge Diagnosis (1) Acute on chronic systolic heart failure Is this a current diagnosis for this admission?: Yes (2) Acute kidney injury superimposed on chronic kidney disease Is this a current diagnosis for this admission?: Yes (3) Chronic kidney disease, stage 3 Is this a current diagnosis for this admission?: Yes (4) Pseudomonas urinary tract infection Is this a current diagnosis for this admission?: Yes - Additional Information Resuscitation Status: Full Code Discharge Activity: Activity As Tolerated Home Medications: Aspirin [Aspirin 81 mg Chewable Tablet] 81 mg PO DAILY 10/03/16 Atorvastatin Calcium [Lipitor 80 mg Tablet] 80 mg PO DAILY 10/03/16 Bumetanide [Bumex 1 mg Tablet] 1 mg PO DAILY 10/03/16 Gabapentin [Neurontin 300 mg Capsule] 300 mg PO Q8 10/03/16 Hydromorphone HCl [Dilaudid 2 mg Tablet] 4 mg PO BIDP PRN 10/03/16 Insulin Detemir [Levemir Flextouch] 50 unit SQ QHS 10/03/16 Insulin Lispro [Humalog Kwikpen U-200] 10 unit SQ ACHS 10/03/16 Isosorbide Dinitrate [Isordil Titradose 10 mg Tablet] 10 mg PO Q8 10/03/16 Levothyroxine Sodium [Synthroid 0.1 mg Tablet] 0.1 mg PO DAILY@0600 10/03/16 Lisinopril [Prinivil 10 mg Tablet] 10 mg PO DAILY 10/03/16 Metoprolol Tartrate [Lopressor 50 mg Tablet] 50 mg PO DAILY 10/03/16 Nitroglycerin [Nitrostat] 0.4 mg SL Q5MP PRN 10/03/16 Pantoprazole Sodium [Protonix] 40 mg PO DAILY 10/03/16 Ranolazine [Ranexa 500 mg Tab.sr] 500 mg PO Q12 10/03/16 Spironolactone [Aldactone 25 mg Tablet] 25 mg PO DAILY 10/03/16 Warfarin Sodium [Coumadin 2 mg Tablet] 2 mg PO DAILY 10/03/16 Metoprolol Succinate [Toprol Xl 25 mg Tab.sr] 25 mg PO Q12 #0 tab.sr.24h History of Present Illness Admission Date/PCP: 10/06/16 15:08 RAVI SANCHEZ MD History of Present Illness: KARISSA JHA is a 66 year old male he has a history of type II diabetes mellitus, coronary artery disease with stenting, caudia equina paraplegia, he said, he felt weak and tired therefore checked his blood pressure which was low he then called rescue squad, when they arrived he was in the recliner the blood pressure recorded was 130/70 but patient requested to be transported to the hospital for further evaluation. In the emergency room he was seen and evaluated, the blood pressure recorded the emergency room was 138/89, temperature 98.3 on pulse oximetry was 100 respiratory rate was 16 he also have blood work done, the serum creatinine was 1.74. Patient seen by primary care M.Carmen. in the office on and at that time he had comprehensive blood work done the serum creatinine was 1.8 from the lab work that was done in the office last week . He has a history of diabetes mellitus, coronary artery disease. The emergency room physician wanted him admitted to the hospital because he said the last time he presented to the emergency room he had a cardiac arrest and he was transferred to tertiary care at the time so he does not feel comfortable to discharge him from the ED. Patient was seen in my office previously.. He has history of prior myocardial infarction, prior stroke , diabetes, paraplegia from cauda equina syndrome. Hospital Course Hospital Course: Was admitted because of acute kidney injury, low blood pressure , acute systolic heart failure and Pseudomonas UTI a 2D echo was done in the hospital he showed ejection fraction of 45% there is mild concentric left ventricular hypertrophy also found was grade 2 diastolic heart failure he also had Pseudomonas urinary tract infection and this was treated with IV antibiotic. He takes warfarin because of history of deep vein thrombosis. Hospital course was prolonged because of disposition problem, discharge planning could not get a bed for [facility], it took about 7 days to get him placement [facility] a [facility]. He was seen in consultation by cardiology, Dr. Hilton. Physical Exam Vital Signs: Temp Pulse Resp BP Pulse Ox 97.4 F 57 L 20 103/49 L 99 10/18/16 15:59 10/18/16 15:59 10/18/16 15:59 10/18/16 15:59 10/18/16 15:59 Intake & Output 10/17/16 10/18/16 10/19/16 06:59 06:59 06:59 Intake Total 1360 2296 654 Output Total 1750 2650 675 Balance -390 -354 -21 Weight 70.6 kg General appearance: PRESENT: no acute distress, well-developed, well-nourished Head exam: PRESENT: atraumatic, normocephalic Eye exam: PRESENT: conjunctiva pink, EOMI, PERRLA Ear exam: PRESENT: normal external ear exam Mouth exam: PRESENT: moist, tongue midline Respiratory exam: PRESENT: clear to auscultation rebecca Cardiovascular exam: PRESENT: RRR, +S1, +S2 Pulses: PRESENT: normal dorsalis pedis pul Vascular exam: PRESENT: normal capillary refill GI/Abdominal exam: PRESENT: normal bowel sounds, soft Rectal exam: PRESENT: deferred Extremities exam: PRESENT: full ROM Neurological exam: PRESENT: alert, awake, oriented to person, oriented to place , oriented to time, oriented to situation, CN II-XII grossly intact. ABSENT: motor sensory deficit Psychiatric exam: PRESENT: appropriate affect, normal mood Skin exam: PRESENT: dry, intact, warm Results Laboratory Results: 10/17/16 04:07 10/10/16 07:28 Impressions: Chest X-Ray 10/02/16 16:18 IMPRESSION: Interval improvement. Renal Ultrasound 10/05/16 00:00 IMPRESSION: NORMAL RENAL AND BLADDER ULTRASOUND.
[2016-10-18 20:28] LABS: PROTHROMBIN TIME 20.7 SEC (11.4-15.4)
[2016-10-18] MEDS: ATORVASTATIN CALCIUM 80 MG TABLET PO SCH (20:49)
[2016-10-18] MEDS: WARFARIN SODIUM 2.5 MG TABLET PO SCH (20:50)
[2016-10-18] MEDS: INSULIN DETEMIR 100 UNIT/ML 3 ML PEN SUBCUT SCH (21:04)
[2016-10-19] MEDS: ISOSORBIDE DINITRATE 10 MG TABLET PO SCH ×2 (06:29→13:45)
[2016-10-19] MEDS: OXYCODONE HCL SR 40 MG TABLET PO SCH ×2 (06:30→13:46)
[2016-10-19] MEDS: GABAPENTIN 300 MG CAPSULE PO SCH ×2 (06:30→13:45)
[2016-10-19] MEDS: LANSOPRAZOLE 30 MG TAB.RAP.DR PO SCH (06:30)
[2016-10-19] MEDS: LEVOTHYROXINE SODIUM 0.1 MG TABLET PO SCH (07:50)
[2016-10-19] MEDS: CIPROFLOXACIN HCL 500 MG TABLET PO SCH (07:50)
[2016-10-19] MEDS: INSULIN LISPRO 100 UNIT/ML 3 ML VIAL SUBCUT SCH ×2 (07:51→11:46)
[2016-10-19 08:15] VITALS: BP 109/48
[2016-10-19] MEDS: RANOLAZINE 500 MG TAB.SR.12H PO SCH (09:32)
[2016-10-19] MEDS: LISINOPRIL 5 MG TABLET PO SCH (09:32)
[2016-10-19] MEDS: SPIRONOLACTONE 25 MG TABLET PO SCH (09:33)
[2016-10-19] MEDS: BUMETANIDE 1 MG TABLET PO SCH (09:33)
[2016-10-19] MEDS: HYDROMORPHONE HCL 2 MG TABLET PO PRN (09:33)
[2016-10-19] MEDS: PREDNISONE 10 MG TABLET PO SCH (09:33)
[2016-10-19] MEDS: ASPIRIN 81 MG TABLET, CHEWABLE PO SCH (09:33)
[2016-10-19] MEDS: METOPROLOL SUCCINATE 25 MG TAB.SR.24H PO SCH (09:35)
[2016-10-19] MEDS: MAG HYDROX/AL HYDROX/SIMETH SUSP 30 ML UDCUP PO PRN (15:46)
== END 2016-10-19 15:52 | DRG 682 ==
LOC: ER 13:36 → EH 20:12 → 5 10-03 01:35 → OBSVTOIN 10-03 07:40 → INTOOBSV 10-03 07:40 → OBSVTOIN 10-06 15:08
PROVIDERS: ADMIT Internal Medicine; ATTEND Internal Medicine
PROC: 5A09457 Assistance with Respiratory Ventilation, 24-96 Consecutive Hours, Continuous Positive Airway Pressure (ICD-10-PCS; principal; 2016-10-04)
DX: N17.9 Acute kidney failure, unspecified (principal); I50.23 Acute on chronic systolic (congestive) heart failure; I13.0 Hypertensive heart and chronic kidney disease with heart failure and stage 1 through stage 4 chronic kidney disease, or unspecified chronic kidney disease; N39.0 Urinary tract infection, site not specified; G83.4 Cauda equina syndrome; E11.22 Type 2 diabetes mellitus with diabetic chronic kidney disease; N18.3 Chronic kidney disease, stage 3 (moderate); B96.5 Pseudomonas (aeruginosa) (mallei) (pseudomallei) as the cause of diseases classified elsewhere; I25.10 Atherosclerotic heart disease of native coronary artery without angina pectoris; I50.9 Heart failure, unspecified; E78.5 Hyperlipidemia, unspecified; F32.9 Major depressive disorder, single episode, unspecified; I95.9 Hypotension, unspecified; G47.9 Sleep disorder, unspecified; L89.151 Pressure ulcer of sacral region, stage 1; E66.9 Obesity, unspecified; Z68.22 Body mass index [BMI] 22.0-22.9, adult; Z95.5 Presence of coronary angioplasty implant and graft; Z79.01 Long term (current) use of anticoagulants; Z79.82 Long term (current) use of aspirin; Z79.899 Other long term (current) drug therapy; Z79.4 Long term (current) use of insulin; Z95.1 Presence of aortocoronary bypass graft; Z88.8 Allergy status to other drugs, medicaments and biological substances; Z82.49 Family history of ischemic heart disease and other diseases of the circulatory system
CPT/HCPCS: 36415; 71010; 76770; 80048; 80053; 81001; 82272; 82550; 82553; 82803; 82962; 83036; 83605; 83735; 84484; 85025; 85027; 85610; 85730; 87040; 87086; 87088; 87186; 93005; 93010; 93306; 94660; 99285; G0378; G8978-GP; G8979-GP; J0696; J1815; J3490; J7030; J7512

== ENCOUNTER 2016-11-17 12:15 | Inpatient (IN) | payer MEDICARE, MEDICAID ==
[2016-11-17] MEDS ORDERED: CALCIUM GLUCONATE 1000 MG/10 ML INJ IV ONE (20:11)
[2016-11-17] MEDS ORDERED: FUROSEMIDE INJ/PF 20 MG/2 ML SDV ONE (20:11)
[2016-11-18] MEDS ORDERED: DEXTROSE 40% GEL 15 GM TUBE PO PRN (00:27)
[2016-11-18] MEDS ORDERED: DEXTROSE 50%-WATER SYRINGE 25 GM/50 ML DOSE IV PRN (00:27)
[2016-11-18] MEDS ORDERED: GLUCAGON,HUMAN RECOMB 1 MG INJ IM PRN (00:27)
[2016-11-18] MEDS ORDERED: DEXTROSE 50%-WATER SYRINGE 12.5 GM/25 ML DOSE IV PRN (00:27)
[2016-11-18] MEDS ORDERED: DEXTROSE 40% GEL 15 GM TUBE X 2 PO PRN (00:27)
[2016-11-18] MEDS ORDERED: ACETAMINOPHEN 500 MG PO PRN (01:35)
[2016-11-18] MEDS ORDERED: NITROGLYCERIN 0.4 MG/TAB 25 TAB/BOTTLE SL PRN (01:40)
[2016-11-18] MEDS ORDERED: LOPERAMIDE HCL 2 MG CAPSULE PO PRN (01:40)
[2016-11-18] MEDS ORDERED: MAGNESIUM HYDROXIDE SUSP 30 ML UDCUP PO PRN (01:40)
[2016-11-18] MEDS ORDERED: FUROSEMIDE INJ/PF 100 MG/10 ML SDV ONE (01:51)
[2016-11-18] MEDS ORDERED: ACETAMINOPHEN 325 MG TABLET PO PRN (01:55)
[2016-11-18] MEDS: NORMAL SALINE 250 ML with FUROSEMIDE 250 MG IV PRN ×4 (02:00→11:04)
[2016-11-18] MEDS ORDERED: BUMETANIDE 1 MG TABLET PO SCH ×2 (02:00→08:00)
[2016-11-18] MEDS: GABAPENTIN 400 MG CAPSULE PO SCH ×2 (06:50→16:37)
[2016-11-18 08:09] LABS: ABSOLUTE BASOPHILS # (AUTO) 0.1 10^3/uL (0.0-0.2); ABSOLUTE EOSINOPHILS # (AUTO) 0.2 10^3/uL (0.0-0.6); ABSOLUTE LYMPHOCYTES (AUTO) 1.1 10^3/uL (0.5-4.7); ABSOLUTE MONOCYTES (AUTO) 0.6 10^3/uL (0.1-1.4); ANION GAP 11 (5-19); BLOOD UREA NITROGEN 35 mg/dL (7-20); CALCIUM 9.6 mg/dL (8.4-10.2); CARBON DIOXIDE 27 mmol/L (22-30); CHLORIDE 100 mmol/L (98-107); CREATININE RESULT 1.65 mg/dL (0.52-1.25); EOSINOPHILS % (AUTO) 2.8 % (0-6); GLUCOSE 111 mg/dL (75-110); HEMATOCRIT 34.7 % (37.9-51.0); HGB HCT DIFFERENCE -1.7; LYMPHOCYTES % (AUTO) 15.6 % (13-45); MEAN CORPUSCULAR HEMOGLOBIN 25.8 pg (27.0-33.4); MEAN CORPUSCULAR HGB CONC 31.7 g/dL (32.0-36.0); MEAN CORPUSCULAR VOLUME 81 fl (80-97); MONOCYTES % (AUTO) 8.2 % (3-13); POTASSIUM 5.2 mmol/L (3.6-5.0); RED BLOOD COUNT 4.26 10^6/uL (4.35-5.55); RED CELL DISTRIBUTION WIDTH 18.7 % (11.5-14.0); SEGMENTED NEUTROPHILS % (AUTO) 72.4 % (42-78); SODIUM 138.1 mmol/L (137-145)
[2016-11-18 09:19] LABS: ABSOLUTE BASOPHILS # (AUTO) 0.1 10^3/uL (0.0-0.2); ABSOLUTE EOSINOPHILS # (AUTO) 0.2 10^3/uL (0.0-0.6); ABSOLUTE LYMPHOCYTES (AUTO) 1.2 10^3/uL (0.5-4.7); ABSOLUTE MONOCYTES (AUTO) 0.5 10^3/uL (0.1-1.4); ABSOLUTE NEUT (AUTO) 4.7 10^3/uL (1.7-8.2); BASOPHILS % (AUTO) 1.4 % (0-2); EOSINOPHILS % (AUTO) 2.3 % (0-6); HEMATOCRIT 30.9 % (37.9-51.0); HEMOGLOBIN 9.8 g/dL (13.5-17.0); HGB HCT DIFFERENCE -1.5; LYMPHOCYTES % (AUTO) 18.6 % (13-45); MEAN CORPUSCULAR HEMOGLOBIN 26.1 pg (27.0-33.4); MEAN CORPUSCULAR HGB CONC 31.8 g/dL (32.0-36.0); MEAN CORPUSCULAR VOLUME 82 fl (80-97); MONOCYTES % (AUTO) 7.3 % (3-13); RED BLOOD COUNT 3.76 10^6/uL (4.35-5.55); RED CELL DISTRIBUTION WIDTH 19.2 % (11.5-14.0); SEGMENTED NEUTROPHILS % (AUTO) 70.4 % (42-78); WHITE BLOOD COUNT 6.7 10^3/uL (4.0-10.5)
[2016-11-18] MEDS ORDERED: ONDANSETRON HCL INJ/PF 4 MG/2 ML SDV IV PRN (09:53)
[2016-11-18] MEDS: LEVOTHYROXINE SODIUM 0.1 MG TABLET PO SCH (09:54)
[2016-11-18] MEDS: INSULIN LISPRO 100 UNIT/ML 3 ML VIAL SUBCUT SCH ×3 (09:54→16:48)
[2016-11-18] MEDS: LISINOPRIL 5 MG TABLET PO SCH (09:55)
[2016-11-18] MEDS: LANSOPRAZOLE 30 MG TAB.RAP.DR PO SCH (09:56)
[2016-11-18] MEDS: ASPIRIN 81 MG TABLET, CHEWABLE PO SCH (09:56)
[2016-11-18] MEDS: SPIRONOLACTONE 25 MG TABLET PO SCH (09:57)
[2016-11-18] MEDS: METOPROLOL SUCCINATE 25 MG TAB.SR.24H PO SCH (09:58)
[2016-11-18] MEDS: ISOSORBIDE DINITRATE 10 MG TABLET PO SCH ×2 (09:58→16:18)
[2016-11-18] MEDS: RANOLAZINE 500 MG TAB.SR.12H PO SCH (09:59)
[2016-11-18] MEDS ORDERED: (PENDING PHARMACY ID) (Bumetanide [Bumex 0.5 Mg Tablet] 0.5 MG) PO SCH (10:00)
[2016-11-18] MEDS ORDERED: LANSOPRAZOLE 30 MG TAB.RAP.DR PO SCH (10:00)
[2016-11-18] MEDS ORDERED: LEVOTHYROXINE SODIUM 0.1 MG TABLET PO SCH (10:00)
[2016-11-18] MEDS ORDERED: (PENDING PHARMACY ID) (Warfarin Sodium 2 MG) PO SCH (10:00)
--- NOTE | 2016-11-18 10:03 | PDOC CONSULTATION ---
Consultation Consult Date: 11/18/16 Attending physician:: RAVI SANCHEZ Consult reason:: Nonsustained ventricular tachycardia History of Present Illness Admission Date/PCP: 11/18/16 02:46 RAVI SANCHEZ MD Patient complains of: Leg swelling and shortness of breath History of Present Illness: KARISSA JHA is a 66 year old male, who was [facility] and was noted to have increasing shortness of breath and also pedal edema. Patient is known to me from previous admission with congestive heart failure. Patient has known history of significant CAD. Patient however denying any chest pain. This morning while being monitored he was noted to have a nonsustained run of wide-complex tachycardia at around 100-120 bpm. Patient claims he was asymptomatic. Patient has history of prior cardiac evaluation at [place]. Patient denied any history of sustained palpitations, syncope, near syncope. He has a history of diabetes mellitus, coronary artery disease. The emergency room physician wanted him admitted to the hospital because he said the last time he presented to the emergency room he had a cardiac arrest and he was transferred to tertiary care at the time so he does not feel comfortable to discharge him from the ED. Patient was seen in my office previously.. He has history of prior myocardial infarction, prior stroke, diabetes, paraplegia from cauda equina syndrome. On questioning patient admitted to have history of snoring, difficulty falling asleep and staying asleep. Past Medical History Cardiac Medical History: Reports: Congestive Heart Failure, Coronary Artery Disease, Hyperlipidema, Hypertension Endocrine Medical History: Reports: Diabetes Mellitus Type 1, Diabetes Mellitus Type 2 Psychiatric Medical History: Reports: Depression Past Surgical History Past Surgical History: Reports: Cardiac Catheterization, Coronary Artery Bypass Graft, Coronary Stent, Other - multiple coronary artery stents Social History Information Source: Patient Smoking Status: Unknown if Ever Smoked Frequency of Alcohol Use: None Hx Recreational Drug Use: No Hx Prescription Drug Abuse: No Family History Family History: CAD Parental Family History Reviewed: Yes Children Family History Reviewed: Yes Sibling(s) Family History Reviewed.: Yes Medication/Allergy Home Medications: Acetaminophen [Tylenol Extra Strength] 500 mg PO Q4HP PRN 11/18/16 Aspirin [Aspirin 81 mg Chewable Tablet] 81 mg PO DAILY 11/18/16 Atorvastatin Calcium [Lipitor 80 mg Tablet] 80 mg PO DAILY 11/18/16 Bumetanide [Bumex 0.5 mg Tablet] 0.5 mg PO DAILY@1700 11/18/16 Bumetanide [Bumex 0.5 mg Tablet] 1 mg PO QAM 11/18/16 Gabapentin [Neurontin 400 mg Capsule] 400 mg PO Q8 11/18/16 Guaifenesin [Robafen] 10 ml PO Q6HP PRN 11/18/16 Insulin Detemir [Levemir Flextouch] 50 units SQ QHS 11/18/16 Insulin Lispro [Humalog Kwikpen U-100] 10 units SQ MEALS 11/18/16 Isosorbide Dinitrate [Isordil Titradose 10 mg Tablet] 10 mg PO Q8 11/18/16 Levothyroxine Sodium [Synthroid] 100 mcg PO DAILY 11/18/16 Lisinopril [Prinivil 2.5 mg Tablet] 2.5 mg PO DAILY 11/18/16 Loperamide HCl [Loperamide] 2 mg PO ASDIR PRN 11/18/16 Mag Hydrox/Al Hydrox/Simeth [Antacid-Simethicone Liquid] 30 ml PO DAILYP PRN Magnesium Hydroxide [Milk of Magnesia 30 ml Udcup] 30 ml PO HSP PRN 11/18/16 Metoprolol Succinate [Toprol Xl 25 mg Tab.sr] 25 mg PO Q12 11/18/16 Nitroglycerin [Nitrostat] 0.4 mg SL Q5MP PRN 11/18/16 Oxycodone HCl [Oxycontin] 60 mg PO Q12 11/18/16 Pantoprazole Sodium [Protonix] 40 mg PO DAILY 11/18/16 Ranolazine [Ranexa 500 mg Tab.sr] 500 mg PO Q12 11/18/16 Spironolactone [Aldactone 25 mg Tablet] 25 mg PO DAILY 11/18/16 Warfarin Sodium [Coumadin] 2 mg PO DAILY 11/18/16 Allergies/Adverse Reactions: metoclopramide [From Reglan] Allergy (Verified 10/02/16 13:50) zolpidem [From Ambien] Allergy (Verified 10/02/16 13:50) Review of Systems Review of Systems: Please see history of present illness and past medical history as wall. Constitutional: No fever or chills reported. Generalized weakness reported Head : No recent chronic headaches, recent head injury. Eyes: No recent eye pain, diplopia, redness, discharge, acute visual changes. Ears: No recent chronic ear pain, acute hearing loss, ear discharge. Oral cavity: No recent ulcerations, bleeding, oral cavity discomfort. Neck: No recent acute neck pain reported. Hematologic: No recent easy bruising or bleeding or hematologic malignancy reported. Lymphatic: No recent lymphatic malignancy, chronic lymphadenopathy reported yet Cardiovascular system review: See history of present illness. Respiratory system review: No recent chronic cough, hemoptysis, blood clots in the lungs reported. Shortness of breath on exertion Gastrointestinal system review: Negative for any recent acute or chronic abdominal pain, hematemesis, melena, recent change in bowel habits. Genitourinary system review: No recent acute or chronic hematuria, flank pain, UTI etc. reported. Skin system review: Negative for any recent abnormal bruising, no rash, no pruritus reported. Neurologic: No prior history of strokes, mini strokes, seizure disorder. Patient has cauda equina syndrome and has paraparesis. Psychologic: No history of major psychosis or major depression reported. Musculoskeletal: Minor aches and pains reported. No acute joint swelling reported. 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 Endocrine: No recent polyuria, polydipsia, recent heat or cold intolerance. Physical Exam Vital Signs: Temp Pulse Resp BP Pulse Ox 97.8 F 68 18 123/53 L 96 11/18/16 08:00 11/18/16 08:00 11/18/16 08:00 11/18/16 08:00 11/18/16 08:00 Intake & Output 11/17/16 11/18/16 11/19/16 06:59 06:59 06:59 Intake Total 290 Output Total 3000 Balance -2710 Weight 116 kg Exam: GENERAL: well-nourished and in no acute distress. Alert and oriented x3 HEAD: Atraumatic, normocephalic. EYES: Pupils equal round and reactive to light, extraocular movements intact, sclera anicteric, conjunctiva are normal. ENT: TMs normal, nares patent, oropharynx clear without exudates. Moist mucous membranes. No oral ulcerations or bleeding gums noted NECK: supple without lymphadenopathy. Trachea is central. No cervical or axillary lymphadenopathy noted. Carotids are 2+, JVD WNL LUNGS: Respiration seems nonlabored, no significant accessory muscle action noted. Breath sounds clear to auscultation bilaterally and equal noted. No wheezes rales or rhonchi noted. No significant dullness noted on percussion. CHEST: Palpation of the chest wall shows no significant chest wall tenderness. No other significant abnormalities noted. 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 ABDOMEN: Soft, no significant tenderness appreciated, normoactive bowel sounds. No guarding, no rebound. No rigidity noted . No masses appreciated. EXTREMITIES: Pedal pulses are 1-2+, no calf tenderness noted. No clubbing or cyanosis.trace pedal edema noted NEUROLOGICAL: Focused neurological exam showed bilateral lower extremity weakness from chronic paraplegia with mild deformity. PSYCH: Normal mood, normal affect. Judgment and insight within normal limits. SKIN: No significant ecchymosis, rash, ulcerations or signs of pruritus noted. MUSCULOSKELETAL EXAM: No significant joint swelling noted. Muscle weakness noted both lower extremity. Results Laboratory Results: 11/18/16 07:26 11/18/16 07:26 11/18/16 11/18/16 07:26 07:26 WBC 7.0 RBC 4.26 L Hgb 11.0 L Hct 34.7 L MCV 81 MCH 25.8 L MCHC 31.7 L RDW 18.7 H Plt Count 240 Seg Neutrophils % 72.4 Lymphocytes % 15.6 Monocytes % 8.2 Eosinophils % 2.8 Basophils % 1.0 Absolute Neutrophils 5.0 Absolute Lymphocytes 1.1 Absolute Monocytes 0.6 Absolute Eosinophils 0.2 Absolute Basophils 0.1 Sodium 138.1 Potassium 5.2 H Chloride 100 Carbon Dioxide 27 Anion Gap 11 BUN 35 H Creatinine 1.65 H Est GFR ( Amer) 51 L Est GFR (Non-Af Amer) 42 L Glucose 111 H Calcium 9.6 Impressions: Chest X-Ray 11/18/16 00:00 IMPRESSION: Moderate chronic interstitial lung disease pattern. Assessment & Plan - Diagnosis (1) Accelerated idioventricular rhythm Is this a current diagnosis for this admission?: Yes (2) Nonsustained ventricular tachycardia Is this a current diagnosis for this admission?: Yes (3) Acute on chronic systolic heart failure Is this a current diagnosis for this admission?: Yes (4) Chronic kidney disease, stage 3 Is this a current diagnosis for this admission?: Yes (5) Coronary artery disease Qualifiers: Coronary Disease-Associated Artery/Lesion type: unspecified vessel or lesion type Associated angina: angina presence unspecified Is this a current diagnosis for this admission?: Yes (6) Sleep disturbance, unspecified Is this a current diagnosis for this admission?: Yes - Notes Notes: Patient noted to have accelerated idioventricular rhythm and nonsustained ventricular tachycardia. Potassium level is WNL. Most likely related to ischemia versus reentrant ventricular dysrhythmia. Have ordered a magnesium level. Will start patient on Ranexa. Nonsustained ventricular tachycardia: In view of depressed LVEF patient will benefit from EP study and possible defibrillator placement. Patient was recently hospitalized at [facility] will review the records. Acute on chronic systolic heart failure: Continue IV Lasix. Continue other supportive care with beta blockers, SELINA SELINA inhibitor/ARB. Coronary artery disease: Patient claims evaluation at [facility]. Will try to obtain those records. May consider a MUGA scan/nuclear stress test. Sleep disturbance: Patient gives history of snoring, difficulty falling asleep and staying asleep. Patient would be a good candidate to pursue a sleep study. This can be scheduled as an outpatient. - Time Time Spent: 30 to 50 Minutes Medications reviewed and adjusted accordingly: Yes
--- NOTE | 2016-11-18 10:33 | EKG REPORT ---
SEVERITY:- ABNORMAL ECG - SINUS RHYTHM NONSPECIFIC INTRAVENTRICULAR CONDUCTION DELAY CONSIDER ANTERIOR INFARCT : Confirmed by: Desiree Chanel MD 18-Nov-2016 10:31:58
[2016-11-18 11:36] LABS: PARTIAL THROMBOPLASTIN TIME 34.4 SEC (23.5-35.8); PROTHROMBIN TIME 18.6 SEC (11.4-15.4)
--- NOTE | 2016-11-18 12:46 | XCELERA REPORT ---
[address] [address] Transthoracic Echocardiogram Report Name: KARISSA JHA Age: 66 yrs Gender: Male : 1950 Patient Status: Inpatient Patient Location: 5\S\534\S\A Study Date: 11/18/2016 11:07 AM Height: 64 in Weight: 255 lb BSA: 2.2 m2 Procedure: A complete two-dimensional transthoracic echocardiogram was performed (2D, M-mode, spectral and color flow Doppler). The study was technically difficult with many images being suboptimal in quality. Reason For Study: [facility] Ordering Physician: ZAYRA DEGROOT Performed By: Iam Cox Interpretation Summary The left ventricle is mildly dilated. The Ejection Fraction estimate is 30-35% There is borderline concentric left ventricular hypertrophy. LV diastolic function could not be adequately assessed. There is inferior wall akinesis There is posterior wall akinesis The right ventricle is moderately dilated. The right ventricular systolic function is mild to moderately reduced. The right atrium is normal in size The left atrium is moderately dilated. There is a moderate amount of mitral regurgitation There is no mitral valve stenosis. There is a mild amount of aortic regurgitation There is no aortic stenosis There is a trace or physiologic amount of tricuspid regurgitation Tricuspid regurgitation jet envelope not well defined to measure RV systolic pressure accurately. There is no pericardial effusion. MMode/2D Measurements \T\ Calculations RVDd: 3.8 cm LVIDd: 6.1 cm FS: 16.2 % Ao root diam: 3.4 cm IVSd: 0.91 cm LVIDs: 5.1 cm EDV(Teich): 189.1 ml LVPWd: 0.90 cm ESV(Teich): 125.9 ml Ao root area: 9.3 cm2 EF(Teich): 33.4 % LA dimension: 5.8 cm Doppler Measurements \T\ Calculations MV E max vangie: MV P1/2t max vangie: Ao V2 max: AI max vangie: 84.9 cm/sec 89.3 cm/sec 148.6 cm/sec 259.5 cm/sec MV A max vangie: MV P1/2t: 53.9 msec Ao max PG: AI max P.0 cm/sec 8.8 mmHg 26.9 mmHg MV E/A: 2.0 MVA(P1/2t): 4.1 cm2 AI dec slope: MV dec slope: 485.2 cm/sec2 119.0 cm/sec2 AI P1/2t: 638.7 msec LV V1 max PG: PA V2 max: PI end-d vangie: TR max vangie: 2.1 mmHg 66.1 cm/sec 135.5 cm/sec 196.2 cm/sec LV V1 max: PA max P.7 mmHg TR max P.7 cm/sec 15.5 mmHg RVSP(TR): 25.5 mmHg RAP systole: 10.0 mmHg Left Ventricle The left ventricle is mildly dilated. There is borderline concentric left ventricular hypertrophy. The Ejection Fraction estimate is 30-35%. LV diastolic function could not be adequately assessed. There is inferior wall akinesis. There is posterior wall akinesis. Right Ventricle The right ventricle is moderately dilated. There is normal right ventricular wall thickness. The right ventricular systolic function is mild to moderately reduced. Atria The right atrium is normal in size. The left atrium is moderately dilated. Interarterial septum not well visualized and not well dopplered. Cannot comment on ASD/PFO presence. Mitral Valve The mitral valve leaflets are sclerotic, but show no functional abnormalities. There is no mitral valve stenosis. There is a moderate amount of mitral regurgitation. Aortic Valve The aortic valve opens well. There is no aortic stenosis. There is a mild amount of aortic regurgitation. Tricuspid Valve The tricuspid valve is not well visualized, but is grossly normal. There is no tricuspid stenosis. There is a trace or physiologic amount of tricuspid regurgitation. Tricuspid regurgitation jet envelope not well defined to measure RV systolic pressure accurately. Pulmonic Valve The pulmonic valve is not well visualized. Great Vessels The aortic root is not well visualized. The inferior vena cava was not visualized. Effusions There is no pericardial effusion. : ZAYRA DEGROOT > Zayra Degroot
[2016-11-18 14:01] LABS: APPEARANCE,URINE SLIGHTLY-CLOUDY; BILIRUBIN,URINE NEGATIVE (NEGATIVE); GLUCOSE, URINE NEGATIVE (NEGATIVE); KETONES,URINE NEGATIVE (NEGATIVE); LEUKOCYTE ESTERASE,URINE SMALL (NEGATIVE); NITRITE,URINE NEGATIVE (NEGATIVE); PROTEIN,URINE NEGATIVE (NEGATIVE); URINE SPECIFIC GRAVITY 1.008; UROBILINOGEN,URINE NEGATIVE mg/dL (<2.0)
[2016-11-18 14:34] LABS: CREATINE KINASE MB 1.51 ng/mL (<4.55); TROPONIN I 0.014 ng/mL
[2016-11-18 14:35] LABS: ALANINE AMINOTRANSFERASE 25 U/L (21-72); ALKALINE PHOSPHATASE 83 U/L (38-126); ANION GAP 9 (5-19); ASPARTATE AMINO TRANSFERASE 29 U/L (17-59); BLOOD UREA NITROGEN 36 mg/dL (7-20); CALCIUM 9.2 mg/dL (8.4-10.2); CARBON DIOXIDE 28 mmol/L (22-30); CHLORIDE 102 mmol/L (98-107); CREATININE RESULT 1.63 mg/dL (0.52-1.25); GLUCOSE 96 mg/dL (75-110); POTASSIUM 5.8 mmol/L (3.6-5.0); SODIUM 138.6 mmol/L (137-145)
[2016-11-18 14:36] LABS: BILIRUBIN,DIRECT 0.4 mg/dL (0.0-0.4); BILIRUBIN,TOTAL 1.5 mg/dL (0.2-1.3); CREATINE KINASE 87 U/L (55-170); TOTAL PROTEIN 7.4 g/dL (6.3-8.2)
[2016-11-18] MEDS ORDERED: OXYCODONE HCL SR 40 MG TABLET PO ONE (16:30)
--- NOTE | 2016-11-18 20:42 | PDOC H&P ---
History of Present Illness Admission Date/PCP: 11/18/16 02:46 RAVI SANCHEZ MD History of Present Illness: Patient came to the office because of shortness of breath and bilateral leg swelling, he was evaluated in the office and he was found to be in CHF, he has a history of chronic systolic and diastolic heart failure, he was advised to go to emergency room for evaluation. In the emergency room he was evaluated he was also found to be in acute systolic heart failure and he was advised to be admitted to the hospital for evaluation. He has a long cardiac history, cardiac arrest , history of ischemic coronary artery disease. Past Medical History Cardiac Medical History: Reports: Coronary Artery Disease, Hyperlipidema, Hypertension, Other - Chronic systolic and diastolic heart failure Endocrine Medical History: Reports: Diabetes Mellitus Type 2 Psychiatric Medical History: Reports: Depression Past Surgical History Past Surgical History: Reports: Cardiac Catheterization, Coronary Artery Bypass Graft, Coronary Stent, Other - multiple coronary artery stents Social History Smoking Status: Unknown if Ever Smoked Frequency of Alcohol Use: None Hx Recreational Drug Use: No Hx Prescription Drug Abuse: No Family History Family History: CAD Parental Family History Reviewed: Yes Children Family History Reviewed: Yes Sibling(s) Family History Reviewed.: Yes Medication/Allergy Home Medications: Acetaminophen [Tylenol Extra Strength] 500 mg PO Q4HP PRN 11/18/16 Aspirin [Aspirin 81 mg Chewable Tablet] 81 mg PO DAILY 11/18/16 Atorvastatin Calcium [Lipitor 80 mg Tablet] 80 mg PO DAILY 11/18/16 Bumetanide [Bumex 0.5 mg Tablet] 0.5 mg PO DAILY@1700 11/18/16 Bumetanide [Bumex 0.5 mg Tablet] 1 mg PO QAM 11/18/16 Gabapentin [Neurontin 400 mg Capsule] 400 mg PO Q8 11/18/16 Guaifenesin [Robafen] 10 ml PO Q6HP PRN 11/18/16 Insulin Detemir [Levemir Flextouch] 50 units SQ QHS 11/18/16 Insulin Lispro [Humalog Kwikpen U-100] 10 units SQ MEALS 11/18/16 Isosorbide Dinitrate [Isordil Titradose 10 mg Tablet] 10 mg PO Q8 11/18/16 Levothyroxine Sodium [Synthroid] 100 mcg PO DAILY 11/18/16 Lisinopril [Prinivil 2.5 mg Tablet] 2.5 mg PO DAILY 11/18/16 Loperamide HCl [Loperamide] 2 mg PO ASDIR PRN 11/18/16 Mag Hydrox/Al Hydrox/Simeth [Antacid-Simethicone Liquid] 30 ml PO DAILYP PRN Magnesium Hydroxide [Milk of Magnesia 30 ml Udcup] 30 ml PO HSP PRN 11/18/16 Metoprolol Succinate [Toprol Xl 25 mg Tab.sr] 25 mg PO Q12 11/18/16 Nitroglycerin [Nitrostat] 0.4 mg SL Q5MP PRN 11/18/16 Oxycodone HCl [Oxycontin] 60 mg PO Q12 11/18/16 Pantoprazole Sodium [Protonix] 40 mg PO DAILY 11/18/16 Ranolazine [Ranexa 500 mg Tab.sr] 500 mg PO Q12 11/18/16 Spironolactone [Aldactone 25 mg Tablet] 25 mg PO DAILY 11/18/16 Warfarin Sodium [Coumadin] 2 mg PO DAILY 11/18/16 Allergies/Adverse Reactions: metoclopramide [From Reglan] Allergy (Verified 10/02/16 13:50) zolpidem [From Ambien] Allergy (Verified 10/02/16 13:50) Review of Systems Constitutional: ABSENT: chills, fever(s), headache(s), weight gain, weight loss Eyes: ABSENT: visual disturbances Ears: ABSENT: hearing changes Cardiovascular: PRESENT: dyspnea on exertion, edema, orthropnea Respiratory: ABSENT: cough, hemoptysis Gastrointestinal: ABSENT: abdominal pain, constipation, diarrhea, hematemesis, hematochezia, nausea, vomiting Genitourinary: ABSENT: dysuria, hematuria Musculoskeletal: ABSENT: joint swelling Integumentary: ABSENT: rash, wounds Neurological: ABSENT: abnormal gait, abnormal speech, confusion, dizziness, focal weakness, syncope Psychiatric: ABSENT: anxiety, depression, homidical ideation, suicidal ideation Endocrine: ABSENT: cold intolerance, heat intolerance, menstrual abnormalities, polydipsia, polyuria Hematologic/Lymphatic: ABSENT: easy bleeding, easy bruising, lymphadenopathy Physical Exam Vital Signs: Temp Pulse Resp BP Pulse Ox 98.3 F 62 18 101/59 L 98 11/18/16 16:00 11/18/16 16:00 11/18/16 16:00 11/18/16 16:00 11/18/16 16:00 Intake & Output 11/17/16 11/18/16 11/19/16 06:59 06:59 06:59 Intake Total 290 1280 Output Total 3000 3710 Balance -2710 -2430 Weight 116 kg General appearance: PRESENT: mild distress Head exam: PRESENT: atraumatic, normocephalic Eye exam: PRESENT: conjunctiva pink, EOMI, PERRLA Ear exam: PRESENT: normal external ear exam Mouth exam: PRESENT: moist, tongue midline Neck exam: PRESENT: full ROM Respiratory exam: PRESENT: crackles Cardiovascular exam: PRESENT: RRR, +S1, +S2, systolic murmur Vascular exam: PRESENT: normal capillary refill GI/Abdominal exam: PRESENT: tenderness Rectal exam: PRESENT: deferred Extremities exam: PRESENT: pedal edema Neurological exam: PRESENT: alert, awake, oriented to person, oriented to place , oriented to time, oriented to situation, CN II-XII grossly intact Psychiatric exam: PRESENT: appropriate affect, normal mood Skin exam: PRESENT: dry, intact, warm Results Laboratory Results: 11/18/16 07:26 11/18/16 07:26 11/18/16 11/18/16 11/18/16 07:26 07:26 07:26 WBC 7.0 RBC 4.26 L Hgb 11.0 L Hct 34.7 L MCV 81 MCH 25.8 L MCHC 31.7 L RDW 18.7 H Plt Count 240 Seg Neutrophils % 72.4 Lymphocytes % 15.6 Monocytes % 8.2 Eosinophils % 2.8 Basophils % 1.0 Absolute Neutrophils 5.0 Absolute Lymphocytes 1.1 Absolute Monocytes 0.6 Absolute Eosinophils 0.2 Absolute Basophils 0.1 Sodium 138.1 Potassium 5.2 H Chloride 100 Carbon Dioxide 27 Anion Gap 11 BUN 35 H Creatinine 1.65 H Est GFR ( Amer) 51 L Est GFR (Non-Af Amer) 42 L Glucose 111 H Calcium 9.6 Magnesium 2.1 Impressions: Chest X-Ray 11/18/16 00:00 IMPRESSION: Moderate chronic interstitial lung disease pattern. Assessment & Plan - Diagnosis (1) Acute systolic heart failure Is this a current diagnosis for this admission?: YesPlan: Patient is admitted to the hospital today with IV furosemide and othe anti-chf medications (2) Acute on chronic systolic heart failure Is this a current diagnosis for this admission?: Yes
--- NOTE | 2016-11-18 20:47 | PDOC TRANSFER SUMMARY ---
General Admission Date/PCP: 11/18/16 02:46 RAVI SANCHEZ MD Admission Date: 11/17/16 Transfer Date: 11/18/16 Accepting Facility: [facility] Resuscitation Status: Do Not Resuscitate - Transfer Diagnosis (1) Acute systolic heart failure Is this a current diagnosis for this admission?: Yes (2) Acute on chronic systolic heart failure Is this a current diagnosis for this admission?: Yes - Transfer Medications Home Medications: Acetaminophen [Tylenol Extra Strength] 500 mg PO Q4HP PRN 11/18/16 Aspirin [Aspirin 81 mg Chewable Tablet] 81 mg PO DAILY 11/18/16 Atorvastatin Calcium [Lipitor 80 mg Tablet] 80 mg PO DAILY 11/18/16 Bumetanide [Bumex 0.5 mg Tablet] 0.5 mg PO DAILY@1700 11/18/16 Bumetanide [Bumex 0.5 mg Tablet] 1 mg PO QAM 11/18/16 Gabapentin [Neurontin 400 mg Capsule] 400 mg PO Q8 11/18/16 Guaifenesin [Robafen] 10 ml PO Q6HP PRN 11/18/16 Insulin Detemir [Levemir Flextouch] 50 units SQ QHS 11/18/16 Insulin Lispro [Humalog Kwikpen U-100] 10 units SQ MEALS 11/18/16 Isosorbide Dinitrate [Isordil Titradose 10 mg Tablet] 10 mg PO Q8 11/18/16 Levothyroxine Sodium [Synthroid] 100 mcg PO DAILY 11/18/16 Lisinopril [Prinivil 2.5 mg Tablet] 2.5 mg PO DAILY 11/18/16 Loperamide HCl [Loperamide] 2 mg PO ASDIR PRN 11/18/16 Mag Hydrox/Al Hydrox/Simeth [Antacid-Simethicone Liquid] 30 ml PO DAILYP PRN Magnesium Hydroxide [Milk of Magnesia 30 ml Udcup] 30 ml PO HSP PRN 11/18/16 Metoprolol Succinate [Toprol Xl 25 mg Tab.sr] 25 mg PO Q12 11/18/16 Nitroglycerin [Nitrostat] 0.4 mg SL Q5MP PRN 11/18/16 Oxycodone HCl [Oxycontin] 60 mg PO Q12 11/18/16 Pantoprazole Sodium [Protonix] 40 mg PO DAILY 11/18/16 Ranolazine [Ranexa 500 mg Tab.sr] 500 mg PO Q12 11/18/16 Spironolactone [Aldactone 25 mg Tablet] 25 mg PO DAILY 11/18/16 Warfarin Sodium [Coumadin] 2 mg PO DAILY 11/18/16 Transfer Medications: Current Medications Acetaminophen (Tylenol 325 Mg Tablet) 487.5 mg PO Q4HP PRN PRN Reason: MILD PAIN OR TEMP > 101 Stop: 12/18/16 01:54 Aspirin (Aspirin 81 Mg Chewable Tablet) 81 mg PO DAILY [facility] Stop: 12/18/16 09:59 Last Admin: 11/18/16 09:56 Dose: 81 mg Atorvastatin Calcium (Lipitor 80 Mg Tablet) 80 mg PO QHS [facility] Stop: 12/18/16 21:59 Dextrose (Dextrose Inj 50% Syringe (25 Gm/50 Ml)) 12.5 gm IV PRN PRN; Protocol PRN Reason: FOR BG 50-69 IN ALERT PATIENT Stop: 12/18/16 00:26 Dextrose (Dextrose Inj 50% Syringe (25 Gm/50 Ml)) 25 gm IV PRN PRN PRN Reason: Protocol Stop: 12/18/16 00:26 Gabapentin (Neurontin 400 Mg Capsule) 400 mg PO Q8 [facility]US[facility] Stop: 12/18/16 05:59 Last Admin: 11/18/16 16:37 Dose: 400 mg Glucagon (Glucagen Inj 1 Mg Vial) 1 mg IM PRN PRN; Protocol PRN Reason: EVALUATE FOR BG < 70 Stop: 12/18/16 00:26 Glucose (Glutose 40% Gel 15 Gm Tube) 15 gm PO PRN PRN; Protocol PRN Reason: FOR BG 50-69 IN ALERT PATIENT Stop: 12/18/16 00:26 Glucose (Glutose 40% Gel 15 Gm Tube) 30 gm PO PRN PRN; Protocol PRN Reason: FOR BG < 50 IN ALERT PATIENT Stop: 12/18/16 00:26 Furosemide 250 mg/ Sodium (Chloride) 250 mls @ 10 mls/hr IV CONTINUOUS PRN PRN Reason: THIS MED IS NOT "PRN" Stop: 12/18/16 00:21 Last Admin: 11/18/16 11:04 Dose: 250 mg Insulin Detemir (Levemir Insulin 300 Units/3 Ml Insuln.Pen) 50 unit SUBCUT QHS [facility] Stop: 12/18/16 21:59 Insulin Human Lispro (Humalog Insulin 100 Unit/1 Ml 3 Ml Vial) 10 unit SUBCUT AC [facility] Stop: 12/18/16 07:59 Last Admin: 11/18/16 16:48 Dose: Not Given Isosorbide Dinitrate (Isordil Titradose 10 Mg Tablet) 10 mg PO Q8 [facility] Stop: 12/18/16 05:59 Last Admin: 11/18/16 16:18 Dose: Not Given Lansoprazole (Prevacid 30 Mg Odt Tablet) 30 mg PO QAM [facility] Stop: 12/18/16 07:59 Last Admin: 11/18/16 09:56 Dose: 30 mg Levothyroxine Sodium (Synthroid 0.1 Mg Tablet) 0.1 mg PO QAM [facility] Stop: 12/18/16 07:59 Last Admin: 11/18/16 09:54 Dose: 0.1 mg Lisinopril (Prinivil 5 Mg Tablet) 2.5 mg PO DAILY [facility] Stop: 12/18/16 09:59 Last Admin: 11/18/16 09:55 Dose: 2.5 mg Loperamide HCl (Imodium 2 Mg Capsule) 2 mg PO PRN PRN PRN Reason: AFTER EACH LOOSE STOOL Stop: 12/18/16 01:39 Magnesium Hydroxide (Milk Of Magnesia 30 Ml Udcup) 30 ml PO DAILYP PRN PRN Reason: CONSTIPATION Stop: 12/18/16 01:39 Metoprolol Succinate (Toprol Xl 25 Mg Tab.Sr) 25 mg PO Q12 [facility] Stop: 12/18/16 09:59 Last Admin: 11/18/16 09:58 Dose: 25 mg Nitroglycerin (Nitrostat 0.4 Mg (1/150 Gr) Tabs 25/Bottle) 1 tab SL Q5MP PRN Stop: 12/18/16 01:39 Ondansetron HCl (Zofran Inj/Pf 4 Mg/2 Ml Sdv) 4 mg IV Q6HP PRN PRN Reason: NAUSEA Stop: 12/18/16 09:52 Last Admin: 11/18/16 10:24 Dose: 4 mg Oxycodone HCl (Oxycontin Sr 40 Mg Tablet) 60 mg PO Q8 [facility] Stop: 11/25/16 21:59 Ranolazine (Ranexa 500 Mg Tab.Sr) 500 mg PO Q12 [facility] Stop: 12/18/16 09:59 Last Admin: 11/18/16 09:59 Dose: 500 mg Spironolactone (Aldactone 25 Mg Tablet) 25 mg PO DAILY [facility] Stop: 12/18/16 09:59 Last Admin: 11/18/16 09:57 Dose: 25 mg Warfarin Sodium (Coumadin 2 Mg Tablet) 2 mg PO QHS [facility] Stop: 12/18/16 21:59 - Allergies Allergies/Adverse Reactions: metoclopramide [From Reglan] Allergy (Verified 10/02/16 13:50) zolpidem [From Ambien] Allergy (Verified 10/02/16 13:50) Hospital Course Hospital Course: Patient was admitted yesterday because of acute systolic heart failure, he had episode of wide complex tachycardia consistent with nonsustained ventricle tachycardia. 2D echo was done he showed ejection fraction 35% of the left ventricle. He was seen by Dr. Hilton, cardiology, is recommending that patient be transfer for EP study and also probably AICD placement Physical Exam Vital Signs: Temp Pulse Resp BP Pulse Ox 98.3 F 62 18 101/59 L 98 11/18/16 16:00 11/18/16 16:00 11/18/16 16:00 11/18/16 16:00 11/18/16 16:00 Intake & Output 11/17/16 11/18/16 11/19/16 06:59 06:59 06:59 Intake Total 290 1280 Output Total 3000 3710 Balance -2710 -2430 Weight 116 kg General appearance: PRESENT: no acute distress Eye exam: PRESENT: PERRLA Respiratory exam: PRESENT: clear to auscultation rebecca Cardiovascular exam: PRESENT: +S1, +S2, systolic murmur GI/Abdominal exam: PRESENT: soft Extremities exam: PRESENT: +1 edema Neurological exam: PRESENT: alert, CN II-XII grossly intact Results Laboratory Results: 11/18/16 07:26 11/18/16 07:26 11/18/16 11/18/16 11/18/16 07:26 07:26 07:26 WBC 7.0 RBC 4.26 L Hgb 11.0 L Hct 34.7 L MCV 81 MCH 25.8 L MCHC 31.7 L RDW 18.7 H Plt Count 240 Seg Neutrophils % 72.4 Lymphocytes % 15.6 Monocytes % 8.2 Eosinophils % 2.8 Basophils % 1.0 Absolute Neutrophils 5.0 Absolute Lymphocytes 1.1 Absolute Monocytes 0.6 Absolute Eosinophils 0.2 Absolute Basophils 0.1 Sodium 138.1 Potassium 5.2 H Chloride 100 Carbon Dioxide 27 Anion Gap 11 BUN 35 H Creatinine 1.65 H Est GFR ( Amer) 51 L Est GFR (Non-Af Amer) 42 L Glucose 111 H Calcium 9.6 Magnesium 2.1 Impressions: Chest X-Ray 11/18/16 00:00 IMPRESSION: Moderate chronic interstitial lung disease pattern.
[2016-11-19] MEDS: ATORVASTATIN CALCIUM 80 MG TABLET PO SCH ×2 (00:06→22:04)
[2016-11-19] MEDS: METOPROLOL SUCCINATE 25 MG TAB.SR.24H PO SCH ×2 (00:07→10:02)
[2016-11-19] MEDS: GABAPENTIN 400 MG CAPSULE PO SCH ×4 (00:08→22:04)
[2016-11-19] MEDS: WARFARIN SODIUM 2 MG TABLET PO SCH ×2 (00:08→22:05)
[2016-11-19] MEDS: OXYCODONE HCL SR 40 MG TABLET PO SCH ×4 (00:09→22:05)
[2016-11-19] MEDS ORDERED: RANOLAZINE 500 MG TAB.SR.12H PO ONE (00:44)
[2016-11-19] MEDS ORDERED: ISOSORBIDE DINITRATE 10 MG TABLET ONE (00:47)
[2016-11-19] MEDS: INSULIN DETEMIR 100 UNIT/ML 3 ML PEN SUBCUT SCH ×2 (01:51→22:05)
[2016-11-19] MEDS: ISOSORBIDE DINITRATE 10 MG TABLET PO SCH ×4 (01:58→22:04)
[2016-11-19] MEDS: RANOLAZINE 500 MG TAB.SR.12H PO SCH ×3 (01:58→22:05)
[2016-11-19 05:30] LABS: HEMATOCRIT 38.7 % (37.9-51.0); HEMOGLOBIN 12.4 g/dL (13.5-17.0); HGB HCT DIFFERENCE -1.5; MEAN CORPUSCULAR HGB CONC 32.1 g/dL (32.0-36.0); MEAN CORPUSCULAR VOLUME 81 fl (80-97); RED BLOOD COUNT 4.79 10^6/uL (4.35-5.55); WHITE BLOOD COUNT 8.6 10^3/uL (4.0-10.5)
[2016-11-19 05:36] LABS: BASOPHILS % (MANUAL) 1 % (0-2); EOSINOPHILS % (MANUAL) 1 % (0-6); LYMPHOCYTES % (MANUAL) 28 % (13-45); TOTAL CELLS COUNTED 100
[2016-11-19 05:37] LABS: OVALOCYTES SLIGHT; TOXIC GRANULATION SLIGHT; TOXIC VACUOLATION PRESENT
[2016-11-19 05:38] LABS: ANISOCYTOSIS 1+; HYPOCHROMASIA 1+; POIKILOCYTOSIS SLIGHT
[2016-11-19 05:39] LABS: PLATELET CLUMPS PRESENT
[2016-11-19 07:58] LABS: ANION GAP 15 (5-19); BLOOD UREA NITROGEN 39 mg/dL (7-20); CALCIUM 9.7 mg/dL (8.4-10.2); CARBON DIOXIDE 30 mmol/L (22-30); CHLORIDE 96 mmol/L (98-107); CREATININE RESULT 1.69 mg/dL (0.52-1.25); GLUCOSE 90 mg/dL (75-110); POTASSIUM 5.1 mmol/L (3.6-5.0); SODIUM 140.9 mmol/L (137-145)
[2016-11-19] MEDS: LANSOPRAZOLE 30 MG TAB.RAP.DR PO SCH (08:27)
[2016-11-19] MEDS: LEVOTHYROXINE SODIUM 0.1 MG TABLET PO SCH (08:27)
[2016-11-19] MEDS: INSULIN LISPRO 100 UNIT/ML 3 ML VIAL SUBCUT SCH ×3 (08:28→16:18)
[2016-11-19] MEDS: ASPIRIN 81 MG TABLET, CHEWABLE PO SCH (09:58)
[2016-11-19] MEDS: LISINOPRIL 5 MG TABLET PO SCH (10:02)
[2016-11-19] MEDS: SPIRONOLACTONE 25 MG TABLET PO SCH (10:02)
--- NOTE | 2016-11-19 21:31 | PDOC PROGRESS REPORT ---
Subjective Progress Note for:: 11/19/16 Subjective:: Patient was seen by the bedside, he was to be transferred to [place] but the accepting physician will be available over the weekend Physical Exam Vital Signs: Temp Pulse Resp BP Pulse Ox 98.3 F 62 16 89/61 L 96 11/19/16 20:04 11/19/16 20:04 11/19/16 20:04 11/19/16 20:04 11/19/16 20:04 Intake & Output 11/18/16 11/19/16 11/20/16 06:59 06:59 06:59 Intake Total 290 1690 1350 Output Total 3000 6810 700 Balance -5480 -5120 650 Weight 116 kg General appearance: PRESENT: no acute distress Eye exam: PRESENT: PERRLA Respiratory exam: PRESENT: clear to auscultation rebecca Cardiovascular exam: PRESENT: +S1, +S2 Results Laboratory Results: 11/19/16 04:10 11/19/16 07:30 11/19/16 11/19/16 11/19/16 04:10 04:10 07:30 WBC 8.6 RBC 4.79 Hgb 12.4 L Hct 38.7 MCV 81 MCH 26.0 L MCHC 32.1 RDW 19.0 H Plt Count 210 Seg Neutrophils % Not Reportable Lymphocytes % Not Reportable Monocytes % Not Reportable Eosinophils % Not Reportable Basophils % Not Reportable Absolute Neutrophils Not Reportable Absolute Lymphocytes Not Reportable Absolute Monocytes Not Reportable Absolute Eosinophils Not Reportable Absolute Basophils Not Reportable Sodium Cancelled 140.9 Potassium Cancelled 5.1 H Chloride Cancelled 96 L Carbon Dioxide Cancelled 30 Anion Gap Cancelled 15 BUN Cancelled 39 H Creatinine Cancelled 1.69 H Est GFR ( Amer) Cancelled 50 L Est GFR (Non-Af Amer) Cancelled 41 L Glucose Cancelled 90 Calcium Cancelled 9.7 Impressions: Chest X-Ray 11/18/16 00:00 IMPRESSION: Moderate chronic interstitial lung disease pattern. Assessment & Plan - Diagnosis (1) Acute systolic heart failure Is this a current diagnosis for this admission?: Yes (2) Acute on chronic systolic heart failure Is this a current diagnosis for this admission?: Yes (3) Hypotension Qualifiers: Hypotension type: idiopathic hypotension Qualified Code(s): I95.0 - Idiopathic hypotension Is this a current diagnosis for this admission?: YesPlan: The blood pressure is low, lasix infusion dose is reduced to 2mg /hr
[2016-11-20] MEDS: METOPROLOL SUCCINATE 25 MG TAB.SR.24H PO SCH ×2 (02:00→09:09)
[2016-11-20] MEDS: ISOSORBIDE DINITRATE 10 MG TABLET PO SCH ×2 (05:49→14:50)
[2016-11-20] MEDS: OXYCODONE HCL SR 40 MG TABLET PO SCH ×2 (06:06→14:57)
[2016-11-20] MEDS: GABAPENTIN 400 MG CAPSULE PO SCH ×2 (06:06→14:50)
[2016-11-20] MEDS: LEVOTHYROXINE SODIUM 0.1 MG TABLET PO SCH (08:12)
[2016-11-20] MEDS: LANSOPRAZOLE 30 MG TAB.RAP.DR PO SCH (08:12)
[2016-11-20] MEDS: INSULIN LISPRO 100 UNIT/ML 3 ML VIAL SUBCUT SCH ×3 (08:12→16:46)
[2016-11-20] MEDS: SPIRONOLACTONE 25 MG TABLET PO SCH (09:04)
[2016-11-20] MEDS: ASPIRIN 81 MG TABLET, CHEWABLE PO SCH (09:08)
[2016-11-20] MEDS: LISINOPRIL 5 MG TABLET PO SCH (09:08)
[2016-11-20] MEDS: RANOLAZINE 500 MG TAB.SR.12H PO SCH (09:09)
--- NOTE | 2016-11-20 11:53 | PDOC PROGRESS REPORT ---
Subjective Progress Note for:: 11/20/16 Subjective:: Patient is feeling good. Denied any chest pain denied any shortness of the breath the leg swelling is much better. Patient is waiting for transport to the [facility] for the further evaluations for the cardiac rhythm Physical Exam Vital Signs: Temp Pulse Resp BP Pulse Ox 98.1 F 63 18 102/58 L 96 11/20/16 11:13 11/20/16 11:13 11/20/16 11:13 11/20/16 11:13 11/20/16 11:13 Intake & Output 11/19/16 11/20/16 11/21/16 06:59 06:59 06:59 Intake Total 1690 1574 360 Output Total 6810 1900 Balance -5120 -326 360 General appearance: PRESENT: no acute distress, well-developed, well-nourished Head exam: PRESENT: atraumatic, normocephalic Eye exam: PRESENT: conjunctiva pink, EOMI, PERRLA. ABSENT: scleral icterus Ear exam: PRESENT: normal external ear exam Mouth exam: PRESENT: moist, tongue midline Neck exam: PRESENT: full ROM. ABSENT: carotid bruit, JVD, lymphadenopathy, thyromegaly Respiratory exam: PRESENT: clear to auscultation rebecca Cardiovascular exam: PRESENT: RRR. ABSENT: diastolic murmur, rubs, systolic murmur Pulses: PRESENT: normal dorsalis pedis pul, +2 pedal pulses bilateral Vascular exam: PRESENT: normal capillary refill GI/Abdominal exam: PRESENT: normal bowel sounds, soft. ABSENT: distended, guarding, mass, organolmegaly, rebound, tenderness Rectal exam: PRESENT: deferred Neurological exam: PRESENT: alert, awake, oriented to person, oriented to place , oriented to time, oriented to situation, CN II-XII grossly intact. ABSENT: motor sensory deficit Psychiatric exam: PRESENT: appropriate affect, normal mood. ABSENT: homicidal ideation, suicidal ideation Skin exam: PRESENT: dry, intact, warm. ABSENT: cyanosis, rash Results Laboratory Results: 11/19/16 04:10 11/19/16 07:30 Impressions: Chest X-Ray 11/18/16 00:00 IMPRESSION: Moderate chronic interstitial lung disease pattern. Assessment & Plan - Diagnosis (1) Acute on chronic systolic heart failure Is this a current diagnosis for this admission?: YesPlan: Currently stable with a continuous medications (2) Chronic kidney disease Qualifiers: Chronic kidney disease stage: stage 3 (moderate) Qualified Code(s): N18.3 - Chronic kidney disease, stage 3 (moderate) Is this a current diagnosis for this admission?: YesPlan: Check the kidney functions (3) Coronary artery disease Qualifiers: Coronary Disease-Associated Artery/Lesion type: unspecified vessel or lesion type Associated angina: angina presence unspecified Is this a current diagnosis for this admission?: YesPlan: Follow with the cardiology (4) Nonsustained ventricular tachycardia Is this a current diagnosis for this admission?: YesPlan: Discussed with the Dr. 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
[2016-11-20] MEDS ORDERED: PHARMACY COMMUNICATION ORDER MC SCH (18:00)
[2016-11-20] MEDS: NORMAL SALINE 250 ML with FUROSEMIDE 250 MG IV PRN ×2 (18:23)
[2016-11-20 20:33] VITALS: BP 120/63
--- NOTE | 2016-11-21 15:38 | PDOC PROGRESS REPORT ---
Subjective Progress Note for:: 11/20/16 Subjective:: Patient seems to be doing better with gradual improvement. Pt is denying any chest arm or neck discomfort. Patient denying any PND, orthopnea. Patient denied any sustained palpitations, dizziness, syncope, near syncope. Patient denying any fever chills. Patient denying any other significant discomfort. Patient is maintaining sinus rhythm. Patient noted to have nonsustained run of wide-complex tachycardia, mostly AIVR however. Patient has no significant symptoms. Patient agreeable to be transferred for further evaluation and prophylactic defibrillator placement. Review of systems: Rest review of systems negative. Medications: Medications have been reviewed. Physical Exam Vital Signs: Temp Pulse Resp BP Pulse Ox 98.2 F 65 18 120/63 95 11/20/16 20:17 11/20/16 20:17 11/20/16 20:17 11/20/16 20:17 11/20/16 20:17 Intake & Output 11/19/16 11/20/16 11/21/16 06:59 06:59 06:59 Intake Total 1690 1574 1524 Output Total 6810 1900 700 Balance -5120 -326 824 Exam: GENERAL: well-nourished and in no acute distress. Alert and oriented x3 HEAD: Atraumatic, normocephalic. EYES: Pupils equal round and reactive to light, extraocular movements intact, sclera anicteric, conjunctiva are normal. ENT: TMs normal, nares patent, oropharynx clear without exudates. Moist mucous membranes. No oral ulcerations or bleeding gums noted NECK: supple without lymphadenopathy. Trachea is central. No cervical or axillary lymphadenopathy noted. Carotids are 2+, JVD WNL LUNGS: Respiration seems nonlabored, no significant accessory muscle action noted. Breath sounds clear to auscultation bilaterally and equal noted. No wheezes rales or rhonchi noted. No significant dullness noted on percussion. CHEST: Palpation of the chest wall shows no significant chest wall tenderness. No other significant abnormalities noted. HEART: [employer] WORK[employer], No PSH, 1/6 ME[place]HAN aortic area, 1/6 coleman systolic murmur mitral area, no rubs, no gallops. ABDOMEN: Soft, no significant tenderness appreciated, normoactive bowel sounds. No guarding, no rebound. No rigidity noted . No masses appreciated. EXTREMITIES: Pedal pulses are 1-2+, no calf tenderness noted. No clubbing or cyanosis. 1+ pedal edema noted NEUROLOGICAL: Focused neurological exam showed bilateral paraparesis of the lower extremity. Patient does have a stage I or II sacral bedsore PSYCH: Normal mood, normal affect. Judgment and insight within normal limits. SKIN: No significant ecchymosis, rash, ulcerations or signs of pruritus noted. MUSCULOSKELETAL EXAM: No significant joint swelling noted. Results Laboratory Results: 11/19/16 04:10 11/19/16 07:30 Impressions: Chest X-Ray 11/18/16 00:00 IMPRESSION: Moderate chronic interstitial lung disease pattern. Assessment & Plan - Diagnosis (1) Cardiomyopathy Qualifiers: Cardiomyopathy type: unspecified Qualified Code(s): I42.9 - Cardiomyopathy, unspecified Is this a current diagnosis for this admission?: Yes (2) Accelerated idioventricular rhythm Is this a current diagnosis for this admission?: Yes (3) Nonsustained ventricular tachycardia Is this a current diagnosis for this admission?: Yes (4) Acute on chronic systolic heart failure Is this a current diagnosis for this admission?: Yes (5) Chronic kidney disease, stage 3 Is this a current diagnosis for this admission?: Yes (6) Coronary artery disease Qualifiers: Coronary Disease-Associated Artery/Lesion type: unspecified vessel or lesion type Associated angina: angina presence unspecified Is this a current diagnosis for this admission?: Yes (7) Sleep disturbance, unspecified Is this a current diagnosis for this admission?: Yes - Notes Notes: Cardiomyopathy: Patient had depressed LVEF at 30-35%. Most likely related to underlying cardiomyopathy and ischemic heart disease. Patient does not have any chest pain. After long discussion, it was felt that patient will benefit from prophylactic primary prevention defibrillator. Patient does give history of near syncopal spell and syncope in the past. Patient also has been noted to have nonsustained ventricular tachycardia and idioventricular tachycardic rhythm. Patient therefore is being transferred over to [facility] under Dr. Lalit Correa patient services for prophylactic defibrillator. He has kindly agreed for transfer. A IV accelerated idioventricular rhythm: Patient currently stable. Electrolytes are within normal limits. Possible etiology could be ischemia but doubt this. Acute on chronic systolic heart failure: Patient is well compensated. Chronic kidney disease: Patient is stable. Patient seems to have chronic kidney disease stage 3. Creatinine been stable. Avoid any nephrotoxic agents, IV contrast agent dye etc. consider nephrology evaluation. Presence of chronic kidney disease is a prognostic factor. CAD: Patient has CAD. Currently stable without any angina or angina equivalent symptoms. Discussed symptoms associated with unstable angina, acute coronary syndrome, myocardial infarction etc. patient to be educated in proper instruction for nitroglycerin use and proper use of emergency services. Aggressive risk factor modification advised. Sleep disorder breathing: Based on patient's symptoms, oropharyngeal exam, body habitus, comorbid diagnosis etc., there is high probability of underlying sleep apnea syndrome. Evaluation is recommended for sleep apnea as treatment of this condition if found is likely to benefit patient and reduce patient's future cardiovascular risk. Patient encouraged in regular cardiology follow-up. I will be happy to provide the follow-up.. - Time Time with patient: Greater than 35 minutes - CODE STATUS was discussed, patient remains full code. Surrogate decision-maker unchanged. Multiple medical problems were addressed. More than 50% of the time spent coordinating care, discussing management plans with involved caregivers. Management plans discussed with involved personnels. Medical decision making was of moderate to high complexity, patient's has multiple comorbidities. Medications reviewed and adjusted accordingly: Yes
--- NOTE | 2016-11-21 15:42 | PDOC PROGRESS REPORT ---
Subjective Progress Note for:: 11/19/16 Subjective:: Patient seems to be doing better with gradual improvement. Pt is denying any chest arm or neck discomfort. Patient denying any PND, orthopnea. Patient denied any sustained palpitations, dizziness, syncope, near syncope. Patient denying any fever chills. Patient denying any other significant discomfort. Patient is maintaining sinus rhythm. Intermittent NSVT and idioventricular rhythm noted Review of systems: Rest review of systems negative. Medications: Medications have been reviewed. Physical Exam Vital Signs: Temp Pulse Resp BP Pulse Ox 98.3 F 62 16 89/61 L 96 11/19/16 20:04 11/19/16 20:04 11/19/16 20:04 11/19/16 20:04 11/19/16 20:04 Intake & Output 11/18/16 11/19/16 11/20/16 06:59 06:59 06:59 Intake Total 290 1690 1350 Output Total 3000 6810 700 Balance -2710 -5120 650 Weight 116 kg Exam: GENERAL: well-nourished and in no acute distress. Alert and oriented x3 HEAD: Atraumatic, normocephalic. EYES: Pupils equal round and reactive to light, extraocular movements intact, sclera anicteric, conjunctiva are normal. ENT: TMs normal, nares patent, oropharynx clear without exudates. Moist mucous membranes. No oral ulcerations or bleeding gums noted NECK: supple without lymphadenopathy. Trachea is central. No cervical or axillary lymphadenopathy noted. Carotids are 2+, JVD WNL LUNGS: Respiration seems nonlabored, no significant accessory muscle action noted. Breath sounds clear to auscultation bilaterally and equal noted. No wheezes rales or rhonchi noted. No significant dullness noted on percussion. CHEST: Palpation of the chest wall shows no significant chest wall tenderness. No other significant abnormalities noted. HEART: [place] [employer] DIS[employer]ER, No PSH, 1/6 [place] aortic area, 1/6 [place] systolic murmur mitral area, no rubs, no gallops. ABDOMEN: Soft, no significant tenderness appreciated, normoactive bowel sounds. No guarding, no rebound. No rigidity noted . No masses appreciated. EXTREMITIES: Pedal pulses are 1-2+, no calf tenderness noted. No clubbing or cyanosis.trace pedal edema noted NEUROLOGICAL: Focused neurological exam showed bilateral lower extremity weakness from chronic paraplegia with mild deformity. PSYCH: Normal mood, normal affect. Judgment and insight within normal limits. SKIN: No significant ecchymosis, rash, ulcerations or signs of pruritus noted. MUSCULOSKELETAL EXAM: No significant joint swelling noted. Muscle weakness noted both lower extremity. Results Laboratory Results: 11/19/16 04:10 11/19/16 07:30 11/19/16 11/19/16 11/19/16 04:10 04:10 07:30 WBC 8.6 RBC 4.79 Hgb 12.4 L Hct 38.7 MCV 81 MCH 26.0 L MCHC 32.1 RDW 19.0 H Plt Count 210 Seg Neutrophils % Not Reportable Lymphocytes % Not Reportable Monocytes % Not Reportable Eosinophils % Not Reportable Basophils % Not Reportable Absolute Neutrophils Not Reportable Absolute Lymphocytes Not Reportable Absolute Monocytes Not Reportable Absolute Eosinophils Not Reportable Absolute Basophils Not Reportable Sodium Cancelled 140.9 Potassium Cancelled 5.1 H Chloride Cancelled 96 L Carbon Dioxide Cancelled 30 Anion Gap Cancelled 15 BUN Cancelled 39 H Creatinine Cancelled 1.69 H Est GFR ( Amer) Cancelled 50 L Est GFR (Non-Af Amer) Cancelled 41 L Glucose Cancelled 90 Calcium Cancelled 9.7 Impressions: Chest X-Ray 11/18/16 00:00 IMPRESSION: Moderate chronic interstitial lung disease pattern. Assessment & Plan - Diagnosis (1) Cardiomyopathy Qualifiers: Cardiomyopathy type: unspecified Qualified Code(s): I42.9 - Cardiomyopathy, unspecified Is this a current diagnosis for this admission?: Yes (2) Accelerated idioventricular rhythm Is this a current diagnosis for this admission?: Yes (3) Nonsustained ventricular tachycardia Is this a current diagnosis for this admission?: Yes (4) Acute on chronic systolic heart failure Is this a current diagnosis for this admission?: Yes (5) Chronic kidney disease, stage 3 Is this a current diagnosis for this admission?: Yes (6) Coronary artery disease Qualifiers: Coronary Disease-Associated Artery/Lesion type: unspecified vessel or lesion type Associated angina: angina presence unspecified Is this a current diagnosis for this admission?: Yes (7) Sleep disturbance, unspecified Is this a current diagnosis for this admission?: Yes - Notes Notes: Cardiomyopathy: Patient had depressed LVEF at 30-35%. Most likely related to underlying cardiomyopathy and ischemic heart disease. It is felt that patient will benefit from transfer to tertiary care for evaluation for prophylactic defibrillator therapy. NSVT and accelerated idioventricular rhythm: Patient currently stable. Electrolytes are within normal limits. So far patient had no symptoms associated with it. Continue to monitor. Chronic kidney disease: Patient is stable. Patient seems to have chronic kidney disease stage 3. Creatinine been stable. Avoid any nephrotoxic agents, IV contrast agent dye etc. consider nephrology evaluation. Presence of chronic kidney disease is a prognostic factor. CAD: Patient has CAD. Currently stable without any angina or angina equivalent symptoms. Sleep disorder breathing: Based on patient's symptoms, oropharyngeal exam, body habitus, comorbid diagnosis etc., there is high probability of underlying sleep apnea syndrome. Evaluation is recommended for sleep apnea as treatment of this condition if found is likely to benefit patient and reduce patient's future cardiovascular risk. Patient awaiting a bed for transfer to [facility] basis until that bed is available, will closely monitor him for any significant arrhythmias, moved to the unit if needed. - Time Time with patient: Greater than 35 minutes - Discussed case with Dr. Lalit Correa. He is on the waiting list. Patient felt to be stable. Case discussed with him in detail. He agrees that patient should be evaluated for prophylactic defibrillator placement and possibly an EP study if needed.. CODE STATUS was discussed, patient remains full code. Surrogate decision-maker unchanged. Multiple medical problems were addressed. More than 50% of the time spent coordinating care, discussing management plans with involved caregivers. Management plans discussed with involved personnels. Medical decision making was of moderate to high complexity, patient's has multiple severe comorbidities.
== END 2016-11-20 19:45 | disposition short-term general hospital (02) | DRG 291 ==
LOC: ER 12:15 → 5 23:16 → UNDOADMIN 23:16 → 5 11-18 02:46
PROVIDERS: ADMIT Internal Medicine; ATTEND Internal Medicine
DX: I13.0 Hypertensive heart and chronic kidney disease with heart failure and stage 1 through stage 4 chronic kidney disease, or unspecified chronic kidney disease (principal); I50.23 Acute on chronic systolic (congestive) heart failure; G83.4 Cauda equina syndrome; E11.22 Type 2 diabetes mellitus with diabetic chronic kidney disease; I25.10 Atherosclerotic heart disease of native coronary artery without angina pectoris; I25.2 Old myocardial infarction; E78.5 Hyperlipidemia, unspecified; N18.3 Chronic kidney disease, stage 3 (moderate); G47.9 Sleep disorder, unspecified; F32.9 Major depressive disorder, single episode, unspecified; I95.0 Idiopathic hypotension; I42.9 Cardiomyopathy, unspecified; E87.5 Hyperkalemia; Z66 Do not resuscitate; Z79.899 Other long term (current) drug therapy; Z79.4 Long term (current) use of insulin; Z79.82 Long term (current) use of aspirin; Z79.01 Long term (current) use of anticoagulants; Z88.8 Allergy status to other drugs, medicaments and biological substances; Z86.73 Personal history of transient ischemic attack (TIA), and cerebral infarction without residual deficits; Z95.1 Presence of aortocoronary bypass graft; Z95.5 Presence of coronary angioplasty implant and graft; Z82.49 Family history of ischemic heart disease and other diseases of the circulatory system
CPT/HCPCS: 36415; 71020; 80048; 80053; 81001; 82550; 82553; 82962; 83735; 83880; 84484; 85025; 85610; 85730; 93005; 93010; 93306; 99284; J0610; J1815; J1940; J2405; J3490; J7050